=== PATIENT | male | born 1985 | race Hispanic/Latino ===

== ENCOUNTER 2019-11-03 19:03 | Emergency (ER) | payer BC, SELFPAY ==
--- NOTE | ~2019-11-03 | XR_ITS ---
EXAMINATION: XR chest 2V EXAM DATE: 11/03/2019 19:39 INDICATION: Mid chest pain. TECHNIQUE: Frontal and lateral projections of the chest obtained and reviewed. Comparison is made to prior examination from 03/21/2017. FINDINGS: The lungs are clear. There are no pleural effusions. The cardiomediastinal silhouette is within normal limits. There is no pneumothorax suspected. The bones and soft tissues are unremarkab le. There are cholecystectomy clips. There is no significant interval change. IMPRESSION: No acute cardiopulmonary findings. Reviewed, dictated and finalized at location A.
[2019-11-03 19:13] VITALS: BP 143/97; PULSE 95; RESP 21; TEMP 36.8; O2SAT 98
[2019-11-03 19:16] VITALS: BP 143/97; PULSE 89; RESP 17; O2SAT 99
--- NOTE | 2019-11-03 19:18 | ECG_ITS ---
Measurements Intervals [place] Rate: 73 P: 44 NH: 142 QRS: -4 QRSD: 85 T: 25 QT: 353 QTc: 390 Interpretive Statements SINUS RHYTHM NORMAL ECG Electronically Signed On 11-04-2019 7:00:07 CDT by Francisco Shah D.O.
[2019-11-03 19:32] LABS: Basophils Percent Auto 0.4 % (0.2-1.2); Eosinophils Absolute Auto 0.2 K/mm3 (0-0.3); Eosinophils Percent Auto 2.2 % (0-4.4); Hematocrit 45.9 % (42.0-52.0); Hemoglobin 16.2 g/dL (14.0-18.0); Immature Granulocyte Absolute 0.02 K/mm3 (0.00-0.031); Immature Granulocyte Percent A 0.3 % (0-0.5); Lymphocytes Absolute Auto 2.21 K/mm3 (0.9-3.2); Lymphocytes Percent Auto 28.5 % (18.3-44.2); Mean Corpuscular HGB Conc 35.3 g/dl (32-36); Mean Corpuscular Hemoglobin 29.7 pg (26-34); Mean Corpuscular Volume 84.2 fl (80-100); Mean Platelet Volume 10.9 fl (7.4-10.4); Monocytes Absolute Auto 0.7 K/mm3 (0.1-0.6); Monocytes Percent Auto 8.5 % (2.6-8.5); Neutrophils Absolute Auto 4.7 K/mm3 (1.3-6.7); Neutrophils Percent Auto 60.1 % (45.5-73.1); Platelet Count Result 168 k/mm3 (150-375); Red Blood Count 5.45 M/mm3 (4.6-6.20); Red Cell Distribution Width 12.8 % (11.5-14.5); White Blood Count 7.8 K/mm3 (4.5-10.0)
[2019-11-03 19:42] LABS: INR 0.9; Prothrombin Time 12.3 Seconds (11.1-14.7)
[2019-11-03 19:43] LABS: Partial Thromboplastin Time 24.7 SECONDS (22.3-36.8)
[2019-11-03 19:44] LABS: Blood Urea Nitrogen 18 mg/dL (9-20); Calcium 9.3 mg/dL (8.4-10.2); Carbon Dioxide 29 mmol/L (22-30); Chloride 102 mmol/L (98-107); Estimated CRCL calculation 73 ml/min; Estimated Glomerular Filt Rate > 60; Glucose 122 mg/dL (75-110); Potassium 3.2 mmol/L (3.4-5.0); Sodium 138 mmol/L (137-145)
[2019-11-03 19:56] LABS: Troponin I < 0.012 ng/mL (0.000-0.034)
--- NOTE | 2019-11-03 20:07 | ED.CHESTPAIN ---
HPI - Chest Pain General Chief Complaint: Chest Pain Stated Complaint: dizzy/corral/cp Time Seen by Provider: 11/03/19 20:01 Source: patient, family (pt's ) and RN notes reviewed Mode of arrival: ambulatory Limitations: no limitations History of Present Illness HPI narrative: Pt is a 34 y/o male who presents to the ED with c/o midsternal chest pain starting earlier today. According to the pt's , he has had intermittent headache and dizziness for the past several days. She notes that the pt was evaluated for his symptoms by his PCP on 11/01/19, and states that he advised him that his symptoms were a result of allergies. Pt notes having bilateral chest pain throughout the day today. He describes his pain as a pressure, stating that he feels as though someone is pushing on his chest. he also reports a mild cough, body aches, and epigastric pain, but denies any SOB. Patient states that he does take Protonix but only takes it as needed MD complaint: chest pain Onset (ago): day(s) (1) Pain location: left chest and right chest Quality: other (pressure) Associated symptoms: cough and other (epigastric pain; body aches; dizziness; headache) Related Data Home Medications Medication Instructions Recorded Confirmed omeprazole 40 mg capsule,delayed 40 mg PO DAILY 11/01/19 release Allergies Allergy/AdvReac Type Severity Reaction Status Date / Time hydrocodone Allergy Unknown Jittery/ANXIOUS Verified 11/03/19 19:17 FEELING Review of Systems Review of Systems: All systems reviewed & are unremarkable except as noted in HPI and below Constitutional: Constitutional: Reports body ache(s) Cardiovascular: Cardiovascular: Reports chest pain (bilateral chest pain) Respiratory: Respiratory: Reports cough and Denies dyspnea Gastrointestinal: Gastrointestinal: Reports abdominal pain (epigastric pain) Neurologic: Reports dizziness and Reports headache(s) [facility] Past Medical History Medical History GERD (gastroesophageal reflux disease) Surgical History Surgical History Hx of appendectomy Hx of cholecystectomy Hx of vasectomy Family History Family History (Updated 03/30/14 @ 07:13 by DOCTOR UNKNOWN) Father Hypertension Social History Social History Social History: Smoking status: Never smoker Second hand tobacco smoke exposure: No Alcohol intake: never Substance use: never Substance use type: does not use Gender identity (if verbalized by the patient): Male Exam Narrative: Exam Narrative: APPEARANCE: No acute distress, nontoxic, resting in bed HEENT: Normocephalic, atraumatic, OMM RESPIRATORY: No respiratory distress, clear to auscultation bilaterally with no rhonchi wheezing or rales CARDIOVASCULAR: RRR s murmur ABDOMINAL: Soft, nondistended, tender palpation epigastric region left upper quadrant, no tenderness in right upper quadrant right lower quadrant left lower quadrant, no rebound or guarding MUSCULOSKELETAl: Moves all extremities. No clubbing, cyanosis or edema. NEURO: Awake and alert. Following commands, speech normal, no focal deficits SKIN:: Warm, dry. Normal Color PSYCHIATRIC: Normal affect/mood Course Course Emergency Course: Patient states pain is resolved following GI cocktail Discussed with patient results of workup and diagnosis. Discussed need for follow-up with primary care, proper use of medication, and reasons to return to the emergency department. Patient understands and agrees to current treatment plan Vital Signs Vital signs: Vital Signs Temperature 98.2 F 11/03/19 19:13 Pulse Rate 95 11/03/19 19:13 Respiratory Rate 21 H 11/03/19 19:13 Blood Pressure 143/97 H 11/03/19 19:13 Pulse Oximetry 98 11/03/19 19:13 Temperature 98.2 F 11/03/19 19:13 Pulse Rate 81 11/03/19 22:36 Respiratory Rate 1
[2019-11-03 20:26] LABS: Alanine Aminotransferase 49 U/L (4-50); Albumin Level 4.6 g/dL (3.5-5.1); Alkaline Phosphatase 84 U/L (38-126); Aspartate Amino Transferase 44 U/L (17-59); Bilirubin,Total 1.6 mg/dL (0.2-1.3); Lipase 70 U/L (23-300)
[2019-11-03 20:29] LABS: D Dimer < 0.22 ug/mL (<0.48)
[2019-11-03] MEDS: LACTATED RINGERS 1,000 ML 999 ML IV CONT (20:47)
[2019-11-03 22:36] VITALS: BP 141/89; PULSE 81; RESP 18; O2SAT 98
[2019-11-03 23:03] LABS: Troponin I < 0.012 ng/mL (0.000-0.034)
[2019-11-03 23:34] VITALS: BP 129/83; PULSE 71; RESP 18; O2SAT 100
== END 2019-11-03 23:20 | disposition home or self-care (01) ==
PROVIDERS: Emergency Medicine; Emergency Provider Emergency Medicine; PCP Family Medicine
DX: R07.89 Other chest pain (principal); K21.9 Gastro-esophageal reflux disease without esophagitis
CPT/HCPCS: 36415; 71046; 80048; 80076; 83690; 84484; 85025; 85380; 85610; 85730; 93005; 99284; A9270; J7120

== ENCOUNTER 2023-01-13 15:45 | Outpatient (CLI) | payer BC, SELFPAY ==
[2023-01-13 16:41] LABS: Hematocrit 44.1 % (42.0-52.0); Hemoglobin 15.8 g/dL (14.0-18.0); Mean Corpuscular HGB Conc 35.8 g/dl (32-36); Mean Corpuscular Hemoglobin 30.8 pg (26-34); Mean Platelet Volume 11.1 fl (7.4-10.4); Platelet Count Result 182 k/mm3 (150-375); Red Blood Count 5.13 M/mm3 (4.6-6.20); Red Cell Distribution Width 12.7 % (11.5-14.5)
[2023-01-13 16:46] LABS: Alanine Aminotransferase 57 U/L (6-50); Albumin Level 4.2 g/dL (3.5-5.1); Alkaline Phosphatase 69 U/L (38-126); Anion Gap 6 mmol/L (8-16); Aspartate Amino Transferase 35 U/L (17-59); Bilirubin,Total 1.3 mg/dL (0.2-1.3); Blood Urea Nitrogen 20 mg/dL (9-20); Calcium 8.8 mg/dL (8.4-10.2); Carbon Dioxide 30 mmol/L (22-30); Chloride 101 mmol/L (98-107); Estimated Glomerular Filt Rate > 60; Glucose 96 mg/dL (65-110); Potassium 3.9 mmol/L (3.4-5.0); Sodium 137 mmol/L (137-145)
[2023-01-13 16:50] LABS: Immunoglobulin G 1064 mg/dL (700-1600)
[2023-01-13 18:03] LABS: Hepatitis B Surface Anti Res Negative
[2023-01-17 09:29] LABS: Alpha-1-Antitrypsin, QN 135 mg/dL (83-199); Ceruloplasmin 23 mg/dL (18-36)
[2023-01-18 03:47] LABS: Hepatitis A Antibody Total Reactive (Nonreactive); Hepatitis B Core Ab Total Nonreactive (Nonreactive)
[2023-01-18 15:48] LABS: Alpha Fetoprotein Tumor Marker 2.5 ng/mL (<6.1)
[2023-01-19 14:12] LABS: Actin Antibody (IgG) <20 U (<20)
[2023-01-23 00:58] LABS: ALT 47 U/L (9-46); Alpha-2-Macroglobulin 123 mg/dL (106-279); Apolipoprotein A1 142 mg/dL (94-176); Fibrosis Score 0.21; Fibrosis Stage F0; GGT 83 U/L (3-90); Haptoglobin 104 mg/dL (43-212); Necroinflammat Act Grade A0-A1
== END 2023-01-13 15:46 | disposition home or self-care (01) ==
LOC: ANHLAB 15:46
PROVIDERS: PCP Family Medicine; Visit Provider Nurse Practitioner
DX: R74.01 Elevation of levels of liver transaminase levels (principal); R10.13 Epigastric pain; K74.60 Unspecified cirrhosis of liver
CPT/HCPCS: 36415; 80053; 81596; 82103; 82105; 82390; 82728; 82784; 84443; 85027; 86038; 86364; 86704; 86706; 86708

== ENCOUNTER 2023-01-19 07:19 | Outpatient (CLI) | payer BC, SELFPAY ==
--- NOTE | ~2023-01-19 | US_ITS ---
US abdomen limited INDICATION: Increased liver function tests. PROCEDURE: Realtime right upper abdominal ultrasound. COMPARISON: 09/01/2014 FINDINGS: The pancreas is normal without focal mass or pancreatic ductal dilation. Liver echotexture is increased, consistent with fatty infiltration. There is normal directional flow in the portal ve in. Gallbladder surgically absent. Common bile duct measures 4.8 mm. No sonographic Rod's sign. IMPRESSION: 1: Hepatic steatosis. Reviewed, dictated and finalized at location [] IMPRESSION: 1: Hepatic steatosis.
== END 2023-01-19 07:20 | disposition home or self-care (01) ==
PROVIDERS: PCP Physician Assistant; Visit Provider Nurse Practitioner
DX: R10.13 Epigastric pain (principal); R74.01 Elevation of levels of liver transaminase levels; K76.0 Fatty (change of) liver, not elsewhere classified
CPT/HCPCS: 76705

== ENCOUNTER 2023-02-06 13:53 | Outpatient (CLI) | payer BC, SELFPAY ==
[2023-02-06 16:23] LABS: Iron 130 ug/dL (49-181)
[2023-02-06 16:34] LABS: Percent Iron Saturation 39 % (20-50)
[2023-02-09 22:59] LABS: Mitochondrial (M2) Ab (IgG) <=20.0 U (<=20.0)
[2023-02-11 00:18] LABS: LKM 1 Antibody <=20.0 U (<=20.0)
== END 2023-02-06 13:54 | disposition home or self-care (01) ==
LOC: ANHLAB 13:54
PROVIDERS: PCP Physician Assistant; Visit Provider Nurse Practitioner
DX: R74.01 Elevation of levels of liver transaminase levels (principal); R10.13 Epigastric pain
CPT/HCPCS: 36415; 83520; 83540; 83550; 85610; 86376

== ENCOUNTER 2023-02-13 04:18 | Day surgery (SDC) | payer BC, SELFPAY ==
[2023-02-06 14:29] VITALS: BMI 30.8
[2023-02-13 08:15] VITALS: BP 129/91; PULSE 76; RESP 20; TEMP 36.6; O2SAT 99; BMI 31.5
[2023-02-13] MEDS: LACTATED RINGERS 1,000 ML 150 ML IV CONT (08:21)
--- NOTE | 2023-02-13 08:53 | WPDANESEPPF ---
Anes - Initial Pre Proc Eval Procedure: Operation Date: 02/13/23 09:15 Proposed Procedures p Esophagogastroduodenoscopy - Raz Sharpe MD Date/Time: 02/13/23 08:53 Surgeon: Raz Sharpe MD Pre Op Diagnosis: GERD, epigastric pain Patient Data Age: 37 Gender: M Height: 1.65 m Weight: 86 kg Last Vital Signs Temp 97.9 F 02/13/23 08:15 Pulse 76 02/13/23 08:15 Resp 20 02/13/23 08:15 BP 129/91 H 02/13/23 08:15 Pulse Ox 99 02/13/23 08:15 O2 Del Method Room Air 02/13/23 08:15 Allergies Allergy/AdvReac Type Severity Reaction Status Date / Time hydrocodone Allergy Unknown Jittery/ANXIOUS Verified 02/06/23 14:27 FEELING Home Medications Medication Instructions Recorded Confirmed Type losartan 25 mg tablet See Rx Instructions .Route 01/14/22 02/06/23 Rx .COMPLEX #90 tabs dicyclomine 20 mg tablet 20 mg PO .every 6 hours PRN 01/13/23 02/06/23 Rx abdominal pain #120 tabs omeprazole 40 mg capsule,delayed 40 mg PO DAILY #30 caps 01/13/23 02/06/23 Rx release Patient hx anesthesia problems: none Family hx anesthesia problems: none Results Review: All pre-operative results and documents have been reviewed as part of the pre-operative evaluation. [facility] Past Medical History Medical History (Updated 01/13/23 @ 15:49 by Sonali Herrera APRN) Colon cancer screening Elevated transaminase level Epigastric pain GERD (gastroesophageal reflux disease) HTN (hypertension) Hx of type A viral hepatitis Surgical History Surgical History (Updated 01/13/23 @ 15:49 by Sonali Herrera APRN) Hx of appendectomy Hx of cholecystectomy Hx of vasectomy Family History Family History Father Hypertension Diabetes mellitus Mixed hyperlipidemia Mother Hypothyroidism Mixed hyperlipidemia Social History Social History Social History: Smoking status: Smoker, status unknown (Smokes cigars) Tobacco type: cigars Second hand tobacco smoke exposure: No Additional smoking assessment comments: 2-3 a day, pt smokes cigars Alcohol intake: never Substance use: never Substance use type: does not use Living arrangements: with family Occupation/Education: occupation Gender identity (if verbalized by the patient): Male Sexual Orientation (if Verbalized by the Patient): Straight or Heterosexual Spiritual care concerns: No Anes - Eval Final PreProcedure Day of Procedure 02/13/23 08:53 Patient weight: normal Heart: regular rate and rhythm Lungs: clear to auscultation Airway: Mallampati scale class II Neurological: alert and oriented Last oral intake: >/= 8 hours ASA classification: II Emergent: no Anesthetic plan: proceed Anesthesia type and monitoring: general GIVS and standard monitoring Results Review: All pre-operative results and documents have been reviewed as part of the pre-operative evaluation. Informed Consent: The patient's anesthetic plan and its attendant risks and benefits were discussed with the patient/family/POA. Questions were solicited and answers provided to the satisfaction of the patient/family/POA.
--- NOTE | 2023-02-13 10:02 | PM.HPGS ---
History of Present Illness History of Present Illness Consent: Risks, benefits, and alternatives have been discussed and questions answered. Patient agrees to proceed with procedure. Chief complaint: GERD, epigastric pain Narrative: Joseph Kimball is a 37 year old male with almost 2 months of intermittent bloating and discomfort radiation from left to right abdomen, worse after eating spicy meals. He is using omeprazole that is helping with dyspepsia. Ultrasound showed hepatic steatosis. Review of Systems Constitutional: Constitutional: Denies headache(s) and Denies weakness Eyes: Eyes: Denies blurry vision ENT: Reports Normal hearing present, Denies headache(s) and Denies neck pain Cardiovascular: Cardiovascular: Denies chest pain and Denies dyspnea Respiratory: Respiratory: Denies dyspnea Gastrointestinal: Gastrointestinal: Reports no additional gastrointestinal complaints Genitourinary: Genitourinary: Denies dysuria Musculoskeletal: Musculoskeletal: Denies neck pain Integumentary/Breasts: Skin/Breast: Denies dry skin Neurologic: Reports Normal hearing present, Denies headache(s) and Denies weakness Psychiatric: Psychiatric: Denies anxiety Endocrine: Endocrine: Denies change in body appearance Hematologic/Lymphatic: Hematologic/Lymphatic: Denies easy bleeding Allergic/Immunologic: Allergic/Immunologic: Denies urticaria PMFSH Past Medical History Medical History (Updated 01/13/23 @ 15:49 by Sonali Herrera APRN) Colon cancer screening Elevated transaminase level Epigastric pain GERD (gastroesophageal reflux disease) HTN (hypertension) Hx of type A viral hepatitis Surgical History Surgical History (Updated 01/13/23 @ 15:49 by Sonali Herrera APRN) Hx of appendectomy Hx of cholecystectomy Hx of vasectomy Family History Family History Father Hypertension Diabetes mellitus Mixed hyperlipidemia Mother Hypothyroidism Mixed hyperlipidemia Social History Social History Social History: Smoking status: Smoker, status unknown (Smokes cigars) Tobacco type: cigars Second hand tobacco smoke exposure: No Additional smoking assessment comments: 2-3 a day, pt smokes cigars Alcohol intake: never Substance use: never Substance use type: does not use Living arrangements: with family Occupation/Education: occupation Gender identity (if verbalized by the patient): Male Sexual Orientation (if Verbalized by the Patient): Straight or Heterosexual Spiritual care concerns: No Meds Home Medications and Allergies Home Medications Medication Instructions Recorded Confirmed Type losartan 25 mg tablet See Rx Instructions .Route 01/14/22 02/06/23 Rx .COMPLEX #90 tabs dicyclomine 20 mg tablet 20 mg PO .every 6 hours PRN 01/13/23 02/06/23 Rx abdominal pain #120 tabs omeprazole 40 mg capsule,delayed 40 mg PO DAILY #30 caps 01/13/23 02/06/23 Rx release Allergies Allergy/AdvReac Type Severity Reaction Status Date / Time hydrocodone Allergy Unknown Jittery/ANXIOUS Verified 02/06/23 14:27 FEELING Vital Signs Vital Signs - 24 hr 02/13/23 08:15 Temperature 97.9 F Pulse Rate 76 Respiratory Rate 20 Blood Pressure 129/91 H Pulse Oximetry 99 Oxygen Delivery Room Air Exam Const: General: comfortable and no acute distress HENMT: Face/Nose/Sinus: Normal nares present Eyes: General: appearance normal, both eyes and all related structures Neck: Neck: no JVD Resp: Auscultation: clear to auscultation bilaterally Cardio: Rate: regular rate Rhythm: regular rhythm GI: Inspection: non-distended GI Palp: Yes Soft to palpation Skin: General skin exam: normal color Neuro: General: gait normal Speech: normal speech Extrem: General: normal to inspection Psych: Mental Status: mental status grossly normal Ass
[2023-02-13] MEDS: BENZOCAINE (*SP) 60 ML SPRAY CAN (HURRICAINE) 1 SPRAY MUCOUS MEM (10:08)
[2023-02-13 10:12] VITALS: BP 105/75; PULSE 91; RESP 18; O2SAT 96
[2023-02-13 10:22] VITALS: BP 113/75; PULSE 90; RESP 20; O2SAT 98
[2023-02-13 10:32] VITALS: BP 122/80; PULSE 77; RESP 17; O2SAT 97
== END 2023-02-13 10:39 | disposition home or self-care (01) ==
PROVIDERS: PCP Physician Assistant; Visit Provider Internal Medicine Gastroenterology
PROC: 0DJ08ZZ Inspection of Upper Intestinal Tract, Via Natural or Artificial Opening Endoscopic (ICD-10-PCS; CPT 43235; principal; 2023-02-13 09:15)
DX: R10.30 Lower abdominal pain, unspecified (principal); K30 Functional dyspepsia; K21.9 Gastro-esophageal reflux disease without esophagitis; K76.0 Fatty (change of) liver, not elsewhere classified; I10 Essential (primary) hypertension; F17.290 Nicotine dependence, other tobacco product, uncomplicated
CPT/HCPCS: 43239; 88305; J2704; J7120

== ENCOUNTER 2023-08-21 10:52 | Emergency (ER) | payer BC, SELFPAY ==
--- NOTE | 2023-08-21 11:04 | ED.URI ---
HPI - URI/Sore Throat General Chief Complaint: Upper Respiratory Infection Stated Complaint: Headache/Dizziness Time Seen by Provider: 08/21/23 11:22 Source: patient and RN notes reviewed Mode of arrival: ambulatory Limitations: no limitations History of Present Illness HPI Narrative: 38-year-old male presents with concern for 3 day history of cough, nasal congestion, headache, body aches, chills. Reports itchy ears and occasionally feels dizzy. Reports taking a multi symptom cold medicine with some relief. He took the COVID test at home today that was negative MD elicited complaint: cough and other (headache) Related Data Allergies Allergy/AdvReac Type Severity Reaction Status Date / Time hydrocodone Allergy Unknown Jittery/ANXIOUS Verified 08/21/23 11:13 FEELING Review of Systems Review of Systems: CONSTITUTIONAL: Reports malaise, chills. Denies sweats or fever. EYES: Denies visual changes, redness, or discharge. ENT: Reports rhinorrhea, congestion, itchy ears otalgia bile sore throat. CARDIOVASCULAR: Denies chest pain, palpitations, or edema. RESPIRATORY: Reports cough. Denies dyspnea. GASTROINTESTINAL: Denies abdominal pain, nausea, vomiting, diarrhea SKIN: Denies rash or itching. MUSCULOSKELETAL: Reports myalgia. NEUROLOGIC: Reports headache. All systems reviewed & are unremarkable except as noted in HPI and below PMFSH Past Medical History Medical History (Updated 08/21/23 @ 11:56 by Rama Mello NP) Colon cancer screening Dyspepsia Elevated transaminase level Epigastric pain GERD (gastroesophageal reflux disease) HTN (hypertension) Hx of type A viral hepatitis Surgical History Surgical History Hx of appendectomy Hx of cholecystectomy Hx of vasectomy Family History Family History Father Hypertension Diabetes mellitus Mixed hyperlipidemia Mother Hypothyroidism Mixed hyperlipidemia Social History Social History Social History: Smoking status: Smoker, status unknown (Smokes cigars) Tobacco type: cigars Second hand tobacco smoke exposure: No Additional smoking assessment comments: 2-3 a day, pt smokes cigars Alcohol intake: never Substance use: never Substance use type: does not use Living arrangements: with family Occupation/Education: occupation Gender identity (if verbalized by the patient): Male Sexual Orientation (if Verbalized by the Patient): Straight or Heterosexual Spiritual care concerns: No Comments At time of signature, agree with nursing past medical, surgical, social and family history. There is no relevant family history pertinent to the presenting complaint Exam Narrative: GENERAL: Well-appearing, well-nourished, and in no acute distress. HEAD: Normocephalic EYES: PERRLA, conjunctivae clear ENT: Nares clear, turbinates edematous and erythematous, clear discharge. Mucous membranes moist. TM pearly magana with dull light reflex bilaterally; no tragal tenderness. Oropharynx not erythematous without lesions. Tonsils not enlarged and without exudate, no drooling, no hoarseness, no trismus, uvula midline. NECK: Supple. No lymphadenopathy CHEST: Clear to auscultation, breath sounds equal. No wheezing, rhonchi, rales, or stridor. No respiratory distress, speaks in full sentences. HEART: Regular rate and rhythm. No murmur heard. SKIN: Warm, dry, no rash. NEURO: Alert and oriented x3. PSYCH: Normal mood and affect Course Course Emergency Course: Patient is aware of diagnosis, understands and agrees to treatment plan. Anticipatory guidance given. Patient agrees to follow-up as directed and is aware of reasons to seek care at the emergency department. Portions of this record may have been created with voice recognition software Level of Care: [facility] Care Visit Vi
[2023-08-21 11:12] VITALS: BP 133/91; PULSE 107; RESP 16; TEMP 37; O2SAT 97
[2023-08-21 11:14] VITALS: BP 133/91; PULSE 107; RESP 16; TEMP 37; O2SAT 97
== END 2023-08-21 12:05 | disposition home or self-care (01) ==
PROVIDERS: Emergency Provider Nurse Practitioner; PCP Physician Assistant
DX: B34.9 Viral infection, unspecified (principal); F17.290 Nicotine dependence, other tobacco product, uncomplicated; K21.9 Gastro-esophageal reflux disease without esophagitis; I10 Essential (primary) hypertension; Z98.52 Vasectomy status
CPT/HCPCS: 87804; 99213; G0463

== ENCOUNTER 2023-11-15 15:57 | Emergency (ER) | payer BC, SELFPAY ==
[2023-11-15 16:12] VITALS: BP 131/94; PULSE 75; RESP 16; TEMP 36.6; O2SAT 98
--- NOTE | 2023-11-15 16:35 | ED.GENADULT ---
HPI - General Adult General Chief complaint: Ear Stated complaint: Ears Irritation/Sore Throat Source: patient Mode of arrival: ambulatory Limitations: no limitations History of Present Illness HPI narrative: Patient presents for evaluation of headache. He is here in the company of his who provides me with some of his history. On Thursday of last week he developed a sore throat. He then developed a productive cough of yellow sputum, hot flashes and chills. Those symptoms have improved. Two days ago he developed a headache, which is in the left parietal and temporal region of his head, radiating into the jaw. He has associated left sided facial numbness and pressure in his left ear. He rates his headache as 8/10 in severity and describes it as pulsating. Any type of physical exertion make his pain worse. He took ibuprofen 600mg for his headache without considerable improvement thereafter. He denies any chest pain or SOB. Related Data Allergies Allergy/AdvReac Type Severity Reaction Status Date / Time hydrocodone Allergy Unknown Jittery/ANXIOUS Verified 11/15/23 16:00 FEELING Review of Systems Review of Systems: CONSTITUTIONAL: Reports recent hot flashes and chills, none currently EYES: Denies visual changes, redness, or discharge. ENT: Reports recent sore throat, none currently. Reports pressure in his left ear and pain in the left side of his mandible. CARDIOVASCULAR: Denies chest pain, palpitations, or edema. RESPIRATORY: Denies cough or dyspnea. GASTROINTESTINAL: Denies abdominal pain, nausea, vomiting, or diarrhea. GENITOURINARY: Denies dysuria or hematuria. SKIN: Denies rash or itching. MUSCULOSKELETAL: Denies back pain, joint pain, or myalgia. NEUROLOGIC: Reports numbness in left side of his face. Reports left sided pulsating headache. Denies dizziness or weakness. PSYCHIATRIC: Denies anxiety or depression. [facility] Past Medical History Medical History Colon cancer screening Dyspepsia Elevated transaminase level Epigastric pain GERD (gastroesophageal reflux disease) HTN (hypertension) Hx of type A viral hepatitis Surgical History Surgical History Hx of appendectomy Hx of cholecystectomy Hx of vasectomy Family History Family History Father Hypertension Diabetes mellitus Mixed hyperlipidemia Mother Hypothyroidism Mixed hyperlipidemia Social History Social History Social History: Smoking status: Smoker, status unknown (Smokes cigars) Tobacco type: cigars Second hand tobacco smoke exposure: No Additional smoking assessment comments: 2-3 a day, pt smokes cigars Alcohol intake: never Substance use: never Substance use type: does not use Living arrangements: with family Occupation/Education: occupation Gender identity (if verbalized by the patient): Male Sexual Orientation (if Verbalized by the Patient): Straight or Heterosexual Spiritual care concerns: No Exam Narrative: GENERAL: Well-appearing, well-nourished, and in no acute distress. HEAD: Normocephalic, atraumatic. EYES: PERRLA and EOMI. ENT: Nares clear, no rhinorrhea or epistaxis. Mucous membranes moist. Oropharynx without tonsillar hypertrophy exudate or other lesions. Bilateral TMs pearly magana nonbulging. No crepitus over left TMJ. There is some tenderness over the left mandible without any visible swelling NECK: Supple. No adenopathy or masses. No carotid bruits or JVD CHEST: Clear to auscultation. No respiratory distress. No wheezes rales or rhonchi HEART: Regular rate and rhythm. No murmur heard. Normal peripheral pulses. ABDOMEN: Soft, nontender, nondistended, normal active bowel sounds. EXTREMITIES: Normal range of motion. No edema. SKIN
== END 2023-11-15 17:22 | disposition home or self-care (01) ==
PROVIDERS: Emergency Provider Nurse Practitioner; PCP Physician Assistant
DX: R20.0 Anesthesia of skin (principal); R51.9 Headache, unspecified; Z20.822 Contact with and (suspected) exposure to COVID-19; F17.290 Nicotine dependence, other tobacco product, uncomplicated; K21.9 Gastro-esophageal reflux disease without esophagitis; I10 Essential (primary) hypertension
CPT/HCPCS: 87081; 87426; 87804; 87880; 99213; G0463

== ENCOUNTER 2023-11-15 18:01 | Emergency (ER) | payer BC, SELFPAY ==
--- NOTE | ~2023-11-15 | CT_ITS ---
CT ANGIOGRAM NECK AND HEAD History: Headache. Technique: Serial spiral axial images through the head and neck were obtained during arterial phase I V injection of 100 cc of Omnipaque 350. 3-D postprocessing and MIP images were then reconstructed on the remote workstation. Dose reduction technique was used on this scan by utilizing automated exposur e control and iterative reconstruction technique. The dose-length product (DLP) was 1038.34 mGy-cm. CTA neck findings: Bilateral vertebral arteries are patent. Bilateral common carotid, internal carot id, and external carotid arteries are patent. No large vessel occlusion. No stenosis or aneurysm. The proximal right internal carotid artery demonstrates 0% stenosis relative to the normal distal artery lumen diameter. The proximal left internal carotid artery demonstrates 0% stenosis relative to the n ormal distal artery lumen diameter. CTA head findings: Distal vertebral arteries, basilar artery, and posterior humeral arteries are coy nt. Distal internal carotid arteries, middle cerebral arteries, and anterior cerebral arteries are pa tent. No large vessel occlusion. No stenosis or aneurysm. Impression: No significant abnormality seen. Reviewed, dictated and finalized at location M. Impression: No significant abnormality seen.
--- NOTE | ~2023-11-15 | CT_ITS ---
EXAMINATION: CT brain wo con DATE: 11/15/2023 18:58 INDICATION: Headache. TECHNIQUE: Computed tomography (CT) of the head was performed without intravenous contrast. The mA wa s adjusted according to patient size. Iterative reconstruction technique was employed. The dose-lengt h product was 605.33 mGy-cm. COMPARISON: None FINDINGS: There is no intracranial hemorrhage, acute infarction, or abnormal intracranial mass lesion . The ventricles are normal in size. The orbits are normal. There is mucosal thickening in the parana caitlin sinuses. The mastoid air cells are normal. IMPRESSION: 1. Normal brain. Reviewed, dictated and finalized at location E. IMPRESSION: 1. Normal brain.
--- NOTE | ~2023-11-15 | XR_ITS ---
EXAMINATION: XR chest 2V DATE: 11/15/2023 18:48 INDICATION: Cough. TECHNIQUE: Frontal and lateral views of the chest were obtained. COMPARISON: Chest 2 views 11/03/2019 FINDINGS: There is mild elevation of right hemidiaphragm. There is mild atelectasis in the lower lung zones. No pleural effusion or pneumothorax. The heart size is normal. There are surgical clips in th e abdomen. IMPRESSION: 1. Mild atelectasis in the lower lung zones. Reviewed, dictated and finalized at location E.
[2023-11-15 18:06] VITALS: BP 136/90; PULSE 71; RESP 18; TEMP 36.9; O2SAT 99
--- NOTE | 2023-11-15 18:44 | ED.HA ---
HPI - Headache General Chief Complaint: Headache <Sara Cheatham PA-C - Last Filed: 11/16/23 01:44> Stated Complaint: headache, facial numbness <Sara Cheatham PA-C - Last Filed: 11/16/23 01:44> Time Seen by Provider: 11/15/23 18:22 <Sara Cheatham PA-C - Last Filed: 11/16/23 01:44> History of Present Illness HPI Narrative: 38-year-old male with history of hypertension presents to emergency department his at bedside for evaluation for URI symptoms and left-sided headache. Patient is [place]ese-speaking and his assists with history. He was sent here from urgent care for further evaluation. States 5 days ago he began developing a sore throat followed by productive cough 2 days later. States the sore throat has resolved however 3 days ago he began developing severe pain in his left temporal region that radiates up into his head and down into his face. States that started in front of the ear gets worse when he opens his mouth, smiles, brushes his teeth on the left side and eats food. He describes the pain as a sharp sensation and it is intermittent. He is describing paresthesias and numbness and states it feels like bugs are crawling on my skin , otherwise denies focal numbness or weakness. Denies vision changes, fever. States his cough has been persistent and has not improved with Robitussin. Pt endorses he does not have a hx of headaches. <Sara Cheatham PA-C - Last Filed: 11/16/23 01:44> Related Data Allergies/Adverse Reactions: Allergies Allergy/AdvReac Type Severity Reaction Status Date / Time hydrocodone Allergy Unknown Jittery/ANXIOUS Verified 11/15/23 16:00 FEELING <KULDEEP Rios Last Filed: 11/16/23 01:44> Review of Systems Review of Systems: CONSTITUTIONAL: Denies fever, chills, or sweats. EYES: Denies visual changes, redness, or discharge. ENT: Denies rhinorrhea, congestion, sore throat, or otalgia. CARDIOVASCULAR: Denies chest pain, palpitations, or edema. RESPIRATORY: Denies cough or dyspnea. GASTROINTESTINAL: Denies abdominal pain, nausea, vomiting, or diarrhea. GENITOURINARY: Denies dysuria or hematuria. SKIN: Denies rash or itching. MUSCULOSKELETAL: Denies back pain, joint pain, or myalgia. NEUROLOGIC: See HPI PSYCHIATRIC: Denies anxiety or depression. <Sara Cheatham PA-C - Last Filed: 11/16/23 01:44> [facility] Past Medical History Medical History: Medical History Colon cancer screening Dyspepsia Elevated transaminase level Epigastric pain GERD (gastroesophageal reflux disease) HTN (hypertension) Hx of type A viral hepatitis <Sara Cheatham PA-C - Last Filed: 11/16/23 01:44> Surgical History Surgical History: Surgical History Hx of appendectomy Hx of cholecystectomy Hx of vasectomy <Sara Cheatham PA-C - Last Filed: 11/16/23 01:44> Family History Family History: Family History Father Hypertension Diabetes mellitus Mixed hyperlipidemia Mother Hypothyroidism Mixed hyperlipidemia <Sara Cheatham PA-C - Last Filed: 11/16/23 01:44> Social History Social History: Social History Social History: Smoking status: Smoker, status unknown (Smokes cigars) Tobacco type: cigars Second hand tobacco smoke exposure: No Additional smoking assessment comments: 2-3 a day, pt smokes cigars Alcohol intake: never Substance use: never Substance use type: does not use Living arrangements: with family Occupation/Education: occupation Gender identity (if verbalized by the patient): Male Sexual Orientation (if Verbalized by the Patient): Straight or Heterosexual Spiritual care concerns: No <Sara Cheatham PA-C - Last Filed: 11/16/23 01:44
[2023-11-15 19:20] LABS: Basophils Percent Auto 0.5 % (0.2-1.2); Eosinophils Absolute Auto 0.3 K/mm3 (0-0.3); Eosinophils Percent Auto 3.2 % (0-4.4); Hematocrit 44.4 % (42.0-52.0); Hemoglobin 15.8 g/dL (14.0-18.0); Immature Granulocyte Absolute 0.03 K/mm3 (0.00-0.031); Immature Granulocyte Percent A 0.4 % (0-0.5); Lymphocytes Absolute Auto 2.45 K/mm3 (0.9-3.2); Lymphocytes Percent Auto 31.3 % (18.3-44.2); Mean Corpuscular HGB Conc 35.6 g/dl (32-36); Mean Corpuscular Hemoglobin 30.2 pg (26-34); Mean Corpuscular Volume 84.7 fl (80-100); Mean Platelet Volume 10.8 fl (7.4-10.4); Monocytes Absolute Auto 0.7 K/mm3 (0.1-0.6); Monocytes Percent Auto 8.4 % (2.6-8.5); Neutrophils Absolute Auto 4.4 K/mm3 (1.3-6.7); Neutrophils Percent Auto 56.2 % (45.5-73.1); Platelet Count Result 168 k/mm3 (150-375); Red Blood Count 5.24 M/mm3 (4.6-6.20); Red Cell Distribution Width 12.9 % (11.5-14.5); White Blood Count 7.8 K/mm3 (4.5-10.0)
[2023-11-15 19:32] LABS: Alanine Aminotransferase 68 U/L (6-50); Albumin Level 4.4 g/dL (3.5-5.1); Alkaline Phosphatase 81 U/L (38-126); Anion Gap 8 mmol/L (4-12); Aspartate Amino Transferase 34 U/L (17-59); Bilirubin,Total 1.4 mg/dL (0.2-1.3); Blood Urea Nitrogen 25 mg/dL (9-20); CRP 0.8 mg/dL (<1.0); Calcium 9.4 mg/dL (8.4-10.2); Carbon Dioxide 25 mmol/L (22-30); Chloride 106 mmol/L (98-107); Estimated CRCL calculation 79 ml/min; Estimated Glomerular Filt Rate > 60; Glucose 104 mg/dL (65-110); Potassium 4.2 mmol/L (3.4-5.0); Sodium 139 mmol/L (137-145)
[2023-11-15 20:01] LABS: Erythrocyte Sedimentation Rate 7 mm/hr (0-20)
[2023-11-15] MEDS: KETOROLAC 30 MG/ML VIAL (*BKC) IV PUSH (20:57)
[2023-11-15] MEDS: SODIUM CHLORIDE 0.9% IV 1,000 ML 999 ML IV CONT (20:58)
[2023-11-15] MEDS: diphenhydrAMINE HCl INJ 50 MG/ML VIAL 25 MG IV PUSH (20:58)
[2023-11-15] MEDS: PROCHLORPERAZINE EDISYLATE 10 MG/2 ML VIAL IV PUSH (20:58)
[2023-11-15 21:14] VITALS: BP 134/84; PULSE 96; RESP 15; O2SAT 100
[2023-11-16 00:46] VITALS: BP 130/78; PULSE 84; RESP 15; O2SAT 100
== END 2023-11-16 00:47 | disposition home or self-care (01) ==
PROVIDERS: Emergency Provider Physician Assistant; PCP Physician Assistant
DX: R51.9 Headache, unspecified (principal); J06.9 Acute upper respiratory infection, unspecified; K21.9 Gastro-esophageal reflux disease without esophagitis; I10 Essential (primary) hypertension; Z90.49 Acquired absence of other specified parts of digestive tract; F17.290 Nicotine dependence, other tobacco product, uncomplicated
CPT/HCPCS: 36415; 70450; 70496; 70498; 71046; 80053; 85025; 85652; 86140; 87081; 87426; 87804; 87880; 96361; 96374; 96375; 99284; J0780; J1200; J1885; J7030; Q9967

== ENCOUNTER 2024-02-02 15:36 | Outpatient (CLI) | payer BC, SELFPAY ==
--- NOTE | ~2024-02-02 | MR_ITS ---
MR cervical spine wo con Ordering provider: Marisela Severino MD History: 38 years Male with . G95.9 - Disease of spinal cord, unspecified . Comparison: None. Technique: MRI cervical spine without contrast. FINDINGS: CERVICAL SPINAL CORD/CRANIAL CERVICAL JUNCTION: Normal in signal and caliber. CERVICAL VERTEBRAL BODIES: Normal height and alignment. Normal marrow signal. DISK SPACES: Normal. C2-C3: No stenosis. C3-C4: No stenosis. C4-C5: No stenosis. C5-C6: No stenosis. Mild diffuse disc bulge with bilateral narrowing of the foramina. Root compressio n is highly suggestive. C6-C7: No stenosis. C7-T1: No stenosis. VISUALIZED PARASPINOUS SOFT TISSUES: Normal. IMPRESSION: 1. Mild diffuse disc bulge at the level of C5-C6 with bilateral narrowing of the foramina. Root comp ression is highly suggestive. Reviewed, dictated and finalized at location A. IMPRESSION: 1. Mild diffuse disc bulge at the level of C5-C6 with bilateral narrowing of t he foramina. Root compression is highly suggestive.
== END 2024-02-02 15:37 ==
LOC: MICIMG 15:37
PROVIDERS: PCP Psychiatry & Neurology Neurology; Visit Provider Psychiatry & Neurology Neurology
DX: M54.12 Radiculopathy, cervical region (principal); G95.9 Disease of spinal cord, unspecified; M50.322 Other cervical disc degeneration at C5-C6 level
CPT/HCPCS: 72141

== ENCOUNTER 2024-08-29 08:37 | Emergency (ER) | payer BC, SELFPAY ==
[2024-08-29] VITALS (12 sets, daily range): BP systolic 124–145; BP diastolic 79–101; PULSE 72–86; RESP 16–18; TEMP 36.7; O2SAT 96–100
--- NOTE | ~2024-08-29 | CT_ITS ---
CT of the Abdomen and Pelvis: Indication: Abdominal pain Technique: 2.5 mm axial scans were obtained through the abdomen and pelvis following intravenous adm inistration of 100 cc of Omnipaque 350. Dose reduction technique was used on this scan by utilizing a utomated exposure control and iterative reconstruction technique. The dose-length product (DLP) was 5 04.08 mGy-cm. Findings: Scans through the lung bases are unremarkable. There is probable diffuse hepatic steatosis. Cholecystectomy clips are present. The spleen, pancreas, adrenals and kidneys are within normal limits. No evidence of aortic aneurysm. No lymphadenopathy. No bowel obstruction or bowel wall thickening. There is no evidence to suggest acute appendicitis. Images through the pelvis were performed. Urinary bladder unremarkable. No pelvic mass seen. No ascit es. Impression: No acute abnormality. Diffuse hepatic steatosis. Reviewed, dictated and finalized at [facility]. [employer] Impression: No acute abnormality. Diffuse hepatic steatosis.
--- OUTSIDE RECORDS SUMMARY | 2024-08-29 08:55 | XMS_ITS | Patient Health Summary ---
Author Organization [facility] Address [address] [place] [address] Care Team Providers Care Avionics Engineer Name Role Phone Unavailable Primary Care Provider Unavailabl e Note from [facility],non-owned Affiliates and Associated Physician Practices is amultiple site organization consisting of ambulatory clinics and hospital sitesin [place], [place], [place]. This disclosure is being madepursuant to the Care Everywhere program and may not contain all information available regarding this patient. 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
--- OUTSIDE RECORDS SUMMARY | 2024-08-29 08:55 | XMS_ITS | Clinical Summary ---
Author Organization [facility] Care Team Providers Care Resistance Welder Name Role Phone Unavailable Primary Care Provider Unavailabl e Social History Tobacco Use Types Packs/Day Years Used Date Smoking Tobacco: Never Assessed Sex and Gender Information Value Date Recorded Sex Assigned at Not on file Legal Sex Male 10:59 AM CDT Gender Identity Not on file Sexual Orientation Not on file Plan of Treatment Health Maintenance Due Date Last Done Comments Hepatitis C Virus (HCV) Screening 1983 TdaP Immunization 1983 Hepatitis B Immunization (1 of 3 - 19+ 3-dose series) 2002 Influenza Immunization (#1) 2024 SARS-COV-2 Immunization ( - season) 2024 Respiratory Syncytial Virus (RSV) Immunization (Adult) (1 - 1-dose 75+ series) 2058 Meningococcal Immunization (ACWY) Aged Out No longer eligible based on patient's age to complete this topic Pneumococcal Immunization Combined Aged Out No longer eligible based on patient's age to complete this topic Rotavirus Immunization Aged Out No lo nger eligible based on patient's age to complete this topic
--- OUTSIDE RECORDS SUMMARY | 2024-08-29 08:55 | XMS_ITS | Referral Summary ---
Author Organization [facility] Address [address] [place] [address] Care Team Providers Care Hat Liner Name Role Phone Unavailable Primary Care Provider Unavailabl e Source Comments [facility],non-owned Affiliates and Associated Physician Practices is amultiple site organization consisting of ambulatory clinics and hospital sitesin [place], [place], [place] and [place]. This disclosure is being madepursuant to the Care Everywhere program and may not contain all information available regarding this patient. Last updated 18.[facility] Social History Tobacco Use Types Packs/Day Years Used Date Smoking Tobacco: Never Assessed Sex and Gender Information Value Date Recorded Sex Assigned at Not on file Gender Identity Not on file Sexual Orientation Not on file Plan of Treatment Not on file
--- OUTSIDE RECORDS SUMMARY | 2024-08-29 08:55 | XMS_ITS | Clinical Summary ---
Author Organization [facility] Address [address] [place] [address] Care Team Providers Care High School Math Tutor Name Role Phone Unavailable Primary Care Provider Unavailabl e Source Comments [facility],non-owned Affiliates and Associated Physician Practices is amultiple site organization consisting of ambulatory clinics and hospital sitesin [place], [place], [place] and [place]. This disclosure is being madepursuant to the Care Everywhere program and may not contain all information available regarding this patient. Last updated 18.[facility] [employer] Social History Tobacco Use Types Packs/Day Years Used Date Smoking Tobacco: Never Assessed Sex and Gender Information Value Date Recorded Sex Assigned at Not on file Gender Identity Not on file Sexual Orientation Not on file Plan of Treatment Health Maintenance Due Date Last Done Comments LIPID TESTING 1983 HIV SCREENING 1998 HEPATITIS C SCREENING 03/22/2001 DTAP/TDAP/TD VACCINES (1 - Tdap) 2002 HEPATITIS B VACCINE (1 of 3 - 19+ 3-dose series) 2002 COVID-19 VACCINE (2023-2 5 season) 2024 INFLUENZA VACCINE (#1) 2024 DEPRESSION SCREENING 08/03/2024 ZOSTER VACCINE (1 of 2) 2033 HIB VACCINE Aged Out No longer eligi ble based on patient's age to complete this topic HPV VACCINE Aged Out No longer eligi ble based on patient's age to complete this topic MENINGOCOCCAL (Group B) VACCINE Aged Out No longer eligible based on patient's age to complete this topic MENINGOCOCCAL VACCINE Aged Out No jose mart eligible based on patient's age to complete this topic PNEUMOCOCCAL VACCINE Aged Out No long er eligible based on patient's age to complete this topic
[2024-08-29 09:12] LABS: Basophils Percent Auto 0.3 % (0.2-1.2); Eosinophils Percent Auto 0.3 % (0-4.4); Hematocrit 44.4 % (42.0-52.0); Hemoglobin 16.1 g/dL (14.0-18.0); Immature Granulocyte Absolute 0.03 K/mm3 (0.00-0.031); Immature Granulocyte Percent A 0.3 % (0-0.5); Lymphocytes Absolute Auto 0.97 K/mm3 (0.9-3.2); Lymphocytes Percent Auto 9.8 % (18.3-44.2); Mean Corpuscular HGB Conc 36.3 g/dl (32-36); Mean Corpuscular Hemoglobin 30.8 pg (26-34); Mean Corpuscular Volume 84.9 fl (80-100); Mean Platelet Volume 10.8 fl (7.4-10.4); Monocytes Absolute Auto 0.4 K/mm3 (0.1-0.6); Monocytes Percent Auto 4.3 % (2.6-8.5); Neutrophils Absolute Auto 8.4 K/mm3 (1.3-6.7); Platelet Count Result 199 k/mm3 (150-375); Red Blood Count 5.23 M/mm3 (4.6-6.20); Red Cell Distribution Width 12.6 % (11.5-14.5); White Blood Count 9.9 K/mm3 (4.5-10.0)
[2024-08-29 09:33] LABS: Alanine Aminotransferase 94 U/L (6-50); Albumin Level 4.2 g/dL (3.5-5.1); Alkaline Phosphatase 101 U/L (38-126); Anion Gap 12 mmol/L (4-12); Aspartate Amino Transferase 86 U/L (17-59); Bilirubin,Total 1.3 mg/dL (0.2-1.3); Blood Urea Nitrogen 18 mg/dL (9-20); Calcium 8.8 mg/dL (8.4-10.2); Carbon Dioxide 22 mmol/L (22-30); Chloride 104 mmol/L (98-107); Estimated CRCL calculation 95 ml/min; Estimated Glomerular Filt Rate > 60; Glucose 149 mg/dL (65-110); Lipase 72 U/L (23-300); Potassium 3.9 mmol/L (3.4-5.0); Sodium 138 mmol/L (137-145)
--- OUTSIDE RECORDS SUMMARY | 2024-08-29 09:37 | XMS_ITS | Clinical Summary ---
Author Organization [facility] Address [address] [place] [address] Care Team Providers Care Polarity Tester Name Role Phone Unavailable Primary Care Provider Unavailabl e Source Comments [facility],non-owned Affiliates and Associated Physician Practices is amultiple site organization consisting of ambulatory clinics and hospital sitesin [place], [place], [place] and [place]. This disclosure is being madepursuant to the Care Everywhere program and may not contain all information available regarding this patient. Last updated 18.[facility] [employer] Social History Tobacco Use Types Packs/Day Years [...]
--- OUTSIDE RECORDS SUMMARY | 2024-08-29 09:37 | XMS_ITS | Clinical Summary ---
Author Organization [facility] Care Team Providers Care Line Welder Name Role Phone Unavailable Primary Care [...]
--- OUTSIDE RECORDS SUMMARY | 2024-08-29 09:37 | XMS_ITS | Referral Summary ---
Author Organization [facility] Address [address] [place] [address] Care Team Providers Care Web Site Manager Name Role Phone Unavailable Primary Care Provider Unavailabl e Source Comments [facility],non-owned Affiliates and Associated Physician Practices is amultiple site organization consisting of ambulatory clinics and hospital sitesin [place], [place], [place] and [place]. This disclosure is being madepursuant to the Care Everywhere program and may not contain all information available regarding this patient. Last updated 18.[facility] Social History Tobacco Use Types Packs/Day Years Used Date Smoking Tobacco: Never Assessed Sex and Gender Information Value Date Recorded Sex Assigned at Not on file Gender Identity Not on file Sexual Orientation Not on file Plan of Treatment Not on file
--- OUTSIDE RECORDS SUMMARY | 2024-08-29 09:37 | XMS_ITS | Patient Health Summary ---
Author Organization [facility] Address [address] [place] [address] Care Team Providers Care Assembly Member Name Role Phone Unavailable Primary Care Provider Unavailabl e Note from [facility],non-owned Affiliates and Associated Physician Practices is amultiple site organization consisting of ambulatory clinics and hospital sitesin [place], [place], [place] and [place]. This disclosure is being madepursuant to the Care Everywhere program and may not contain all information available regarding this patient. Last updated 18.[facility] Social History Tobacco Use Types Packs/Day Years [...] Seq See Scanned Report 08/24/2019 3:38 PM CASINO CAGE MANAGER GENE DX Blood BLOOD SPECIMEN / Unknown Lab Venipuncture / Unknown 02/25/2019 4:34 PM CDT 02/25/2019 5:11 PM CDT Lew Garrett MD LAB - CHEMISTRY OR DERABLES GENE DX [address] [place] [address], [facility] [phone]
--- NOTE | 2024-08-29 10:08 | ED.GENADULT ---
HPI - General Adult General Chief complaint: Abdominal Pain Stated complaint: abdominal pain, left back pain for a week Time Seen by Provider: 08/29/24 08:48 History of Present Illness HPI narrative: Patient is a 39-year-old male who presents ER with abdominal pain. Left lower quadrant. Ongoing for 1 week. Worse with physical movement trying to have bowel movement. No fevers or chills or sweats. No chest pain or chest pressure. No known injury. Better with rest. No urinary symptoms. No radiation of discomfort. Does have some mild left-sided back pain it seems to be independent of the abdominal discomfort. Related Data Allergies Allergy/AdvReac Type Severity Reaction Status Date / Time hydrocodone Allergy Unknown Jittery/ANXIOUS Verified 03/22/24 16:02 FEELING Review of Systems Review of Systems: All systems reviewed & are unremarkable except as noted in HPI and below Constitutional: Constitutional: Reports no additional constitutional complaints ENT: Reports system reviewed and no additional complaints, except as documented Cardiovascular: Cardiovascular: Reports no additional cardiovascular complaints Respiratory: Respiratory: Reports no additional respiratory complaints Gastrointestinal: Gastrointestinal: Reports no additional gastrointestinal complaints [facility] Past Medical History Medical History (Updated 08/29/24 @ 12:12 by Mohan Ospina MD) Cervical disc herniation Cervical myelopathy with cervical radiculopathy Left-sided headache Dyspepsia Colon cancer screening Hx of type A viral hepatitis Epigastric pain Elevated transaminase level HTN (hypertension) GERD (gastroesophageal reflux disease) Surgical History Surgical History Hx of vasectomy Hx of cholecystectomy Hx of appendectomy Family History Family History Father Hypertension Diabetes mellitus Mixed hyperlipidemia Mother Hypothyroidism Mixed hyperlipidemia Sibling No problems noted. Social History Social History Social History: Smoking status: Smoker, status unknown (Smokes cigars) Tobacco type: cigars Second hand tobacco smoke exposure: Yes Additional smoking assessment comments: 2-3 a day, pt smokes cigars Alcohol intake: never Substance use: never Substance use type: does not use Do You Feel Safe in your Home?: Yes Lack of Transportation: No Lack of Food: Never True Current Housing: I Have Housing Concerned About Future Housing: No Difficulty Paying Gas/Electric Bills: No Difficulty Paying for Meds: No Currently Unemployed: No Education: High School Diploma/GED Difficulty w/ Childcare or Family Care: No Living arrangements: with family Occupation/Education: occupation 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 HEAD: Normocephalic, atraumatic. ENT: Mucous membranes moist. NECK: Supple. CHEST: Clear to auscultation. No respiratory distress. HEART: Regular rate and rhythm. Normal peripheral pulses. ABDOMEN: Soft, TTP BLQ L>R, nondistended, normal active bowel sounds. EXTREMITIES: Normal range of motion. No edema. SKIN: Warm, dry, no rash. NEURO: Alert and oriented x3. PSYCH: Normal mood and affect. Course Course Emergency Course: Normal evaluation. CT scan with acute pathology. May have abdominal wall muscle strain. Discharged with muscle relaxers and anti-inflammatories. Vital Signs Vital signs: Vital Signs Temperature 98.0 F 08/29/24 08:50 Pulse Rate 84 08/29/24 08:50 Respiratory Rate 18 08/29/24 08:50 Blood Pressure 145/101 H 08/29/24 08:50 Pulse Oximetry 97 08/29/24 08:50 Oxygen Delivery Room Air 08/29/24 08:50 Temperature 98.0 F 08/29/24 08:50 Pulse Rate 84 08/29/24 08:50 Respiratory Rate 18 08/29/24 08:50 Blood Pressure 145/101 H 08/29/24 08:50 Pulse Oximetry 97 08/29/24 08:50 Oxygen Delivery Room Air 08/29/24 08:50 Medical Decision Making Vital Signs Vital Signs: Vital Signs Temperature 98.0 F 08/29/24 08:50 Pulse Rate 84 08/29/24 08:50 Respiratory Rate 18 08/29/24 08:50 Blood Pressure 145/101 H 08/29/24 08:50 Pulse Oximetry 97 08/29/24 08:50 Oxygen Delivery Room Air 08/29/24 08:50 Temperature 98.0 F 08/29/24 08:50 Pulse Rate 84 08/29/24 08:50 Respiratory Rate 18 08/29/24 08:50 Blood Pressure 145/101 H 08/29/24 08:50 Pulse Oximetry 97 08/29/24 08:50 Oxygen Delivery Room Air 08/29/24 08:50 Lab Data 08/29/24 09:05 08/29/24 09:05 Labs: Lab Results 08/29/24 08/29/24 Range/Units 09:05 10:22 WBC 9.9 (4.5-10.0) K/mm3 RBC 5.23 (4.6-6.20) M/mm3 Hgb 16.1 (14.0-18.0) g/dL Hct 44.4 (42.0-52.0) % MCV 84.9 (80-100) fl MCH 30.8 (26-34) pg MCHC 36.3 H (32-36) g/dl RDW 12.6 (11.5-14.5) % Plt Count 199 (150-375) k/mm3 MPV 10.8 H (7.4-10.4) fl Immature Gran % (Auto) 0.3 (0-0.5) % Neut % (Auto) 85.0 H (45.5-73.1) % Lymph % (Auto) 9.8 L (18.3-44.2) % [place] % (Auto) 4.3 (2.6-8.5) % Eos % (Auto) 0.3 (0-4.4) % Baso % (Auto) 0.3 (0.2-1.2) % Lymph # (Auto) 0.97 (0.9-3.2) K/mm3 [place] # (Auto) 0.4 (0.1-0.6) K/mm3 Eos # (Auto) 0.0 (0-0.3) K/mm3 Baso # (Auto) 0.0 (0.0-0.1) K/mm3 Abs Immat Gran (auto) 0.03 (0.00-0.031) K/mm3 Absolute Neuts (auto) 8.4 H (1.3-6.7) K/mm3 Absolute Nucleated RBC 0.000 (0.0-0.012) K/mm3 Nucleated RBC % 0.0 (0.0-0.2) % Sodium 138 (137-145) mmol/L Potassium 3.9 (3.4-5.0) mmol/L Chloride 104 (98-107) mmol/L Carbon Dioxide 22 (22-30) mmol/L Anion Gap 12 (4-12) mmol/L BUN 18 (9-20) mg/dL Creatinine 0.94 (0.7-1.3) mg/dL Estim Creat Clear Calc 95 ml/min Estimated GFR > 60 (59 - ) Glucose 149 H (65-110) mg/dL Calcium 8.8 (8.4-10.2) mg/dL Total Bilirubin 1.3 (0.2-1.3) mg/dL AST 86 H (17-59) U/L ALT 94 H (6-50) U/L Alkaline Phosphatase 101 (38-126) U/L Total Protein 7.0 (6.3-8.2) g/dL Albumin 4.2 (3.5-5.1) g/dL Lipase 72 (23-300) U/L Urine Color Yellow (Yellow) Urine Appearance Clear (Clear) Urine pH 6.0 (5.0-9.0) Ur Specific [place] 1.017 (1.001-1.035) Urine Protein Negative (Negative) mg/dL Urine Glucose (UA) Negative (Negative) mg/dL Urine Ketones Negative (Negative) mg/dL Ur Blood (Man) Negative (Negative) Urine Nitrate Negative (Negative) Urine Bilirubin Negative (Negative) Urine Urobilinogen 0.2 (<2.0) mg/dL Leukocyte Esterase Rfl Negative (Negative) MALATHI/UL Imaging Data Radiologist's impression: ITS Impressions Abdomen/Pelvis CT 08/29/24 09:50 Impression: No acute abnormality. Diffuse hepatic steatosis. Discharge Plan Discharge Clinical Impression: Abdominal wall pain Patient Disposition: Home, Self-Care Condition: Stable Instructions: Abdominal Pain (ED) Additional Instructions: Return to the emergency department if you develop severe abdominal pain, severe nausea and vomiting to the point where you are unable to keep down fluids, if you develop chest pain or difficulty breathing, blood in your stool, dizziness or fainting, or if you develop any other new or concerning symptoms as these could be signs of more serious medical illness. Try to stay well hydrated. Patient Language: Bangladeshi Prescriptions: New cyclobenzaprine 10 mg tablet 10 mg PO TID PRN (Reason: muscle spasm) Qty: 20 0RF naproxen 375 mg tablet 375 mg PO BID Qty: 14 0RF No Action losartan 25 mg tablet See Rx Instructions .ROUTE .COMPLEX Qty: 90 1RF Dose Instruction: Take 1 tablet by mouth once daily Rx Instructions: Take 1 tablet by mouth once daily gabapentin 300 mg capsule 300 mg PO BID Qty: 60 2RF Rx Instructions: May increase to 2 capsules at bedtime if needed and may add 1 capsule in the morning and 2 at bedtime if the pain persists, maximum 3 capsules indomethacin 75 mg capsule, extended release 75 mg PO DAILY Qty: 30 0RF pseudoephedrine HCl 60 mg tablet 60 mg PO Q4-6H PRN (Reason: nasal congestion) Qty: 10 0RF Rx Instructions: DNExceed 4 doses/24h omeprazole 40 mg capsule,delayed release(DR/EC) 40 mg PO DAILY Qty: 30 11RF tizanidine 2 mg capsule 2 mg PO TID PRN (Reason: muscle spasticity) Qty: 60 1RF Rx Instructions: may take 1 or 2 capsules at bedtime only and increase to daytime if necessary. Sedation can occur Follow-up/Referrals: Terri Jackson MD [Physician] - 1 Week Marisela Severino MD [Primary Care Provider] -
[2024-08-29] MEDS: ONDANSETRON INJ 4 MG/2 ML VIAL IV PUSH (10:16)
[2024-08-29] MEDS: MORPHINE SULFATE (*CRX) 4 MG/ML INJ IV PUSH (10:16)
[2024-08-29] MEDS: SODIUM CHLORIDE 0.9% IV 1,000 ML 999 ML IV CONT (10:17)
[2024-08-29 10:32] LABS: Add Urine Microscopic? NO; Appearance Urine Clear (Clear); Bilirubin Urine Negative (Negative); Blood Urine Negative (Negative); Color Urine Yellow (Yellow); Glucose Urine UA Negative (Negative); Ketones Urine Negative (Negative); Leukocyte Esterase Ur Negative LEU/UL (Negative); Nitrate Urine Negative (Negative); Protein Urine Negative (Negative); Specific Grav Ur 1.017 (1.001-1.035); Urobilinogen Urine 0.2 mg/dL (<2.0)
== END 2024-08-29 13:38 | disposition home or self-care (01) ==
PROVIDERS: Emergency Provider Emergency Medicine; PCP Psychiatry & Neurology Neurology
DX: R10.32 Left lower quadrant pain (principal); I10 Essential (primary) hypertension; K21.9 Gastro-esophageal reflux disease without esophagitis
CPT/HCPCS: 36415; 74177; 80053; 81003; 83690; 85025; 96361; 96374; 96375; 99284; J2270; J2405; J7030; Q9967

== ENCOUNTER 2024-10-05 00:29 | Day surgery (SDC) | payer BC, SELFPAY ==
[2024-10-03 09:51] VITALS: BMI 31.0
--- OUTSIDE RECORDS SUMMARY | 2024-10-05 00:33 | XMS_ITS | Data Portability ---
Author Organization [facility] [place] Leonard Address [address] [facility] [place] [address] Care Team Providers Care Automobile Mechanic Name Role Phone WILLIAN DESIR Primary Care Provider Assessment Encounter Date Assessment Date Assessment LastModified by Organization Details LastModified Time 08/25/2024 08/25/2024 called patient 08/29/24 and states he had more pain and is in [facility] right now getting CT scan. Not available 08/29/2024 10:49:30 Plan of Treatment Reminders Order Date Submit Date Provider Last Modified By Organization Details Last Modified Time Details Appointments ANY 15 2024 08:15A M DAMIEN HERNADEZ Not available Not available Not available Lab lipid panel, serum 2022 023 [facility], [address] [place] [address], [address], [place], [address], 12/18/2022 09:14:26 CMP, serum or plasma 2022 023 [facility], [address] [place] [address], [address], [place], [address], 12/18/2022 09:14:26 albumin/c reatinine , mass ratio, urine 2022 023 [facility], [address] [place] [address], [address], [place], [address], 12/18/2022 09:14:25 Referral dermatolo gist referral 2022 023 Mickie Eisenberg MD (Dermatology) , [address] [facility], [facility] [address], [address], [place], [address], 12/17/2022 12:11:47 physical therapist referral [address] (Outpatient Physical Therapy), [address], [place], [address], 12/17/2022 12:11:47 Procedures None recorded. Surgeries None recorded. Imaging XR, knee 2022 023 [facility], [address] [facility], [place], [address], 12/23/2022 00:20:20 Medication Orders naproxen 500 mg tablet 2023 024 [facility], [address] [place], [address], 11/16/2023 14:34:23 ondansetr on HCl 4 mg tablet [address] [facility], [address] [place], [address], 11/16/2023 14:27:57 sumatript an 50 mg tablet [address] [facility], [address] [place], [address], 11/16/2023 14:27:05 trazodone 50 mg tablet [address] [facility], [address] [place], [address], 11/16/2023 14:27:09 naproxen 500 mg tablet 2022 023 [facility], [address] [place], [address], 12/17/2022 12:24:42 losartan 25 mg tablet 2022 023 [facility], [address] [facility], [place], [address], 12/17/2022 12:11:47 Patient TargetsNo targets recorded. Patient Instructions Encounter Date Encounter Id Patient Instructions Last Modified By Organization Details Last Modified Time 12/17/2022 [id number] A healthy lifestyle: care instructions Not available 12/17/2022 12:11:47 S ndrome piriforme: ejercicios - [piriformis syndrome: exercises] Not available 12/17/2022 12:11:47 11/16/2023 [id number] headache: care instructions Not available 11/16/2023 14:36:27 aprenda sobre la presi n arterial homa - [learning about high blood pressure] Not available 11/16/2023 14:34:00 08/25/2024 [id number] A healthy lifestyle: care instructions Not available 08/29/2024 10:50:35 Reason for Referral Physical Therapist Referral for Pain of bilateral knee regions Referring Physician: Willian Desir Interventionist, Encounter Date: 12/17/2022 Embossing Unit Operator Referral for L esion of skin of right ear Referring Physician: Willian Desir Interventionist, Encounter Date: 12/17/2022 Results Created Date Observation Date Name Description Value Unit Range Abnormal Flag Note LastModifiedBy Organization Detail LastModifiedTime 12/18/1912/18/2022 ALBUM IN/CR EATIN INE RATIO ,URIN E creatinine, urine 190.4 mg/dL notest ab. Not Available [facility] ([facility]) [address] [place], [address], 12/18/2022 09:14:25 12/18/1912/18/2022 ALBUM IN/CR EATIN INE RATIO ,URIN E albumin, urine 54.6 ug/mL notest ab. Not Available [facility] ([facility]) [address] [facility], [place], [address], 12/18/2022 09:14:25 12/18/19 23 12/18/2022 ALBUM IN/CR EATIN INE RATIO ,URIN E alb/creat ratio 29 mg/g_ creat 0-29 Karlene l: 0 - 29 Moder ately incre ased: 30 - 300 Sever mirna incre ased: >300 Not Available [facility] ([facility]) [address] [place], [address], 12/18/2022 09:14:25 12/18/19 23 12/18/2022 LIPID PANEL cholesterol, total 109 mg/dL 100-19 9 Not Available [facility] ([facility]) [address] [place], [address], 12/18/2022 09:14:26 12/18/19 23 12/18/2022 LIPID PANEL triglyceride s 116 mg/dL 0-149 Not Available [facility] ([facility]) [address] [place], [address], 12/18/2022 09:14:26 12/18/19 23 12/18/2022 LIPID PANEL HDL cholesterol 34 mg/dL >39 below low normal Not Available [facility] ([facility]) [address] [place], [address], 12/18/2022 09:14:26 12/18/19 23 12/18/2022 LIPID PANEL VLDL cholesterol katie 21 mg/dL 5-40 Not Available [facility] ([facility]) [address] [place], [address], 12/18/2022 09:14:26 12/18/19 23 12/18/2022 LIPID PANEL LDL chol calc ([facility]) 54 mg/dL 0-99 Not Available [facility] ([facility]) [address] [place], [address], 12/18/2022 09:14:26 12/18/19 23 12/18/2022 COMP. METAB OLIC PANEL (14) glucose 95 mg/dL 70-99 Not Available [facility] ([facility]) [address] [facility] [place], [address], 12/18/2022 09:14:26 12/18/19 23 12/18/2022 COMP. METAB OLIC PANEL (14) BUN 19 mg/dL 6-20 Not Available [facility] ([facility]) [address] [facility] [place], [address], 12/18/2022 09:14:26 12/18/19 23 12/18/2022 COMP. METAB OLIC PANEL (14) creatinine 1.06 mg/dL 0.76-1 .27 Not Available [facility] ([facility]) [address] [facility] [place], [address], 12/18/2022 09:14:26 12/18/19 23 12/18/2022 COMP. METAB OLIC PANEL (14) eGFR 92 mL/mi n/1.7 3 >59 Not Available [facility] ([facility]) [address] [facility] [place], [address], 12/18/2022 09:14:26 12/18/19 23 12/18/2022 COMP. METAB OLIC PANEL (14) BUN/creatini ne ratio 18 9-20 Not Available [facility] ([facility]) [address] [facility] [place], [address], 12/18/2022 09:14:26 12/18/19 23 12/18/2022 COMP. METAB OLIC PANEL (14) sodium 138 mmol/ L 134-14 4 Not Available [facility] ([facility]) [address] [facility] [place], [address], 12/18/2022 09:14:26 12/18/19 23 12/18/2022 COMP. METAB OLIC PANEL (14) potassium 4.5 mmol/ L 3.5-5. 2 Not Available [facility] ([facility]) [address] [facility] [place], [address], 12/18/2022 09:14:26 12/18/19 23 12/18/2022 COMP. METAB OLIC PANEL (14) chloride 103 mmol/ L 96-106 Not Available [facility] ([facility]) [address], [place], [address], 12/18/2022 09:14:26 12/18/19 23 12/18/2022 COMP. METAB OLIC PANEL (14) carbon dioxide, total 22 mmol/ L 20-29 Not Available [facility] ([facility]) [address], [place], [address], 12/18/2022 09:14:26 12/18/19 23 12/18/2022 COMP. METAB OLIC PANEL (14) calcium 9.3 mg/dL 8.7-10 .2 Not Available [facility] ([facility]) [address] [facility], [place], [address], 12/18/2022 09:14:26 12/18/19 23 12/18/2022 COMP. METAB OLIC PANEL (14) protein, total 7.0 g/dL 6.0-8. 5 Not Available [facility] ([facility]) [address] [facility] [place], [address], 12/18/2022 09:14:26 12/18/19 23 12/18/2022 COMP. METAB OLIC PANEL (14) albumin 4.7 g/dL 4.0-5. 0 Not Available [facility] ([facility]) [address] [facility] [place], [address], 12/18/2022 09:14:26 12/18/19 23 12/18/2022 COMP. METAB OLIC PANEL (14) globulin, total 2.3 g/dL 1.5-4. 5 Not Available [facility] ([facility]) [address] [facility] [place], [address], 12/18/2022 09:14:26 12/18/19 23 12/18/2022 COMP. METAB OLIC PANEL (14) A/G ratio 2.0 1.2-2. 2 Not Available [facility] ([facility]) [address] [facility] [place], [address], 12/18/2022 09:14:26 12/18/19 23 12/18/2022 COMP. METAB OLIC PANEL (14) bilirubin, total 1.5 mg/dL 0.0-1. 2 above high normal Not Available [facility] ([facility]) [address] [place], [address], 12/18/2022 09:14:26 12/18/19 23 12/18/2022 COMP. METAB OLIC PANEL (14) alkaline phosphatase 98 IU/L 44-121 Not Available [facility] ([facility]) [address] [place], [address], 12/18/2022 09:14:26 12/18/19 23 12/18/2022 COMP. METAB OLIC PANEL (14) AST (SGOT) 42 IU/L 0-40 above high normal Not Available [facility] ([facility]) [address] [place], [address], 12/18/2022 09:14:26 12/18/19 23 12/18/2022 COMP. METAB OLIC PANEL (14) ALT (SGPT) 69 IU/L 0-44 above high normal Not Available [facility] ([facility]) [address] [place], [address], 12/18/2022 09:14:26 12/19/19 23 12/20/2022 ACUTE HEPAT ITIS hep A Ab, IgM Negati ve negati ve Not Available [facility] ([facility]) [address] [place], [address], 12/20/2022 09:13:25 12/19/19 23 12/20/2022 ACUTE HEPAT ITIS HBsAg screen Negati ve negati ve Not Available [facility] ([facility]) [address] [facility], [place], [address], 12/20/2022 09:13:25 12/19/19 23 12/20/2022 ACUTE HEPAT ITIS hep B core Ab, IgM Negati ve negati ve Not Available [facility] ([facility]) [address] [facility], [place], [address], 12/20/2022 09:13:25 12/19/19 23 12/20/2022 ACUTE HEPAT ITIS HCV Ab Non Reacti ve nonrea ctive Not Available [facility] ([facility]) [address] [place], [address], 12/20/2022 09:13:25 12/19/19 23 12/20/2022 HEPAT IC FUNCT ION PANEL (7) protein, total 6.7 g/dL 6.0-8. 5 Not Available [facility] ([facility]) [address] [place], [address], 12/20/2022 09:13:26 12/19/19 23 12/20/2022 HEPAT IC FUNCT ION PANEL (7) albumin 4.6 g/dL 4.0-5. 0 Not Available [facility] ([facility]) [address] [place], [address], 12/20/2022 09:13:26 12/19/19 23 12/20/2022 HEPAT IC FUNCT ION PANEL (7) bilirubin, total 1.7 mg/dL 0.0-1. 2 above high normal Not Available [facility] ([facility]) [address] [place], [address], 12/20/2022 09:13:26 12/19/19 23 12/20/2022 HEPAT IC FUNCT ION PANEL (7) bilirubin, direct 0.33 mg/dL 0.00-0 .40 Not Available [facility] ([facility]) [address] [facility] [place], [address], 12/20/2022 09:13:26 12/19/19 23 12/20/2022 HEPAT IC FUNCT ION PANEL (7) alkaline phosphatase 88 IU/L 44-121 Not Available [facility] ([facility]) [address] [facility] [place], [address], 12/20/2022 09:13:26 12/19/19 23 12/20/2022 HEPAT IC FUNCT ION PANEL (7) AST (SGOT) 34 IU/L 0-40 Not Available [facility] ([facility]) [address] [facility] [place], [address], 12/20/2022 09:13:26 12/19/19 23 12/20/2022 HEPAT IC FUNCT ION PANEL (7) ALT (SGPT) 67 IU/L 0-44 above high normal Not Available [facility] ([facility]) [address] [facility], [place], [address], 12/20/2022 09:13:26 12/19/19 23 12/20/2022 GGT GGT 90 IU/L 0-65 above high normal Not Available [facility] ([facility]) [address] [facility], [place], [address], 12/20/2022 09:13:27 12/19/19 23 12/20/2022 INTER PRETA TION: interpretati on: Commen t Not infec daliln with HCV unles s early or acute infec tion is suspe cted (whic h may be delay ed in an immun ocomp romis ed indiv idual ), or other evide nce exist s to indic ate HCV infec tion. Not Available [facility] ([facility]) [address] [facility], [place], [address], 12/20/2022 09:13:26 12/23/19 23 12/22/2022 XR, knee No observ [facility]ion [facility] [address] [facility], [place], [address], 01/13/2023 15:09:20 01/20/20 23 01/19/2023 US, liver No observ ation record ed. [address], [place], [address], 01/20/2023 14:05:45 11/15/19 24 11/15/2023 XR, chest , 2 view No observ ation record ed. [address], [place], [address], 11/16/2023 14:02:09 11/15/19 24 11/15/2023 CT, head + brain , w/o contr ast No observ ation record ed. [address], [place], [address], 11/16/2023 14:00:59 11/16/19 24 11/15/2023 CT, angio gram, head + neck, w/ contr ast No observ ation record ed. [address], [place], [address], 11/16/2023 14:01:44 Result Notes None recorded. Problems Name Problem SNOMED Code Status Onset Date Resolution Date Notes Provider Name and Address Organization Details Recorded Time Essential hypertensio n 39284841 Active 2022 DAMIEN HERNADEZ Attn: John rios,[address] [facility], [place], [address], [place] [facility] [place] 3 12:25:20 Overweight 342557314 Active 2022 DAMIEN HERNADEZ Attn: John rios,[address] [facility], [place], [address], [place] [facility] 3 12:25:21 Gastroesoph ageal reflux disease 195192296 Active 2022 DAMIEN HERNADEZ Attn: John rios,[address] [facility], [place], [address], [place] [facility] 3 12:25:24 Low back pain 997253845 Active 2022 DAMIEN HERNADEZ Attn: John rios,[address] [facility], [place], [address], [place] [facility] 3 12:25:25 Multiple joint pain 21974314 Active 2022 DAMIEN HERNADEZ Attn: John rios,[address] [facility], [place], [address], [place] [facility] 3 12:25:28 Pain of bilateral knee regions 7434230128688 02 Active 2022 DAMIEN HERNADEZ Attn: John rios,[address] [facility], [place], [address], [place] [facility] 3 12:25:29 Lesion of skin of right ear 7793743309099 9106 Active 2022 DAMIEN HERNADEZ Attn: John rios,[address] [facility], [place], [address], [place] [facility] 3 12:25:32 Insomnia 316287552 Active 2022 DAMIEN HERNADEZ Attn: John rios,[address] [facility], [place], [address], [place] [facility] 3 12:25:34 Headache 16988913 Active 2023 DAMIEN HERNADEZ Attn: John rios,[address] [facility], [place], [address], [place] [facility] 4 14:34:02 Problem Notes None recorded. Procedures Surgical History None recorded. Imaging Results Imaging Date Name Status LastModified by Organiz ation Details LastModified Time 12/22/2022 XR, knee completed [address], [address], 01/13/2023 15:09:20 01/19/2023 US, liver completed [address], [place], [address], 01/20/2023 14:05:45 11/15/2023 XR, chest, 2 view completed [address], [place], [address], 11/16/2023 14:02:09 11/15/2023 CT, head + brain, w/o contrast completed [address], [place], [address], 11/16/2023 14:00:59 11/15/2023 CT, angiogram, head + neck, w/ contrast completed [address], [place], [address], 11/16/2023 14:01:44 Procedure Notes None recorded. Medical Equipment None Reported. Allergies Allergen ID Allergen Name Allergen Category Reaction Reaction Severity Criticality Documentation Date Start Date Code Code System Note Provider Name and Address Organization Details Recorded Time 636859 amoxicill in medicatio n swelling Not available Not available 12/17/2022 723 RxNorm Not Available Not Available Not Available Medications Name Sig Start Date Stop Date Status Note LastModified by Organization Details LastModified Time eq sinus 12-hour 120mg tab TAKE 1 TABLET BY MOUTH EVERY 12 HOURS NEEDED FOR NASAL CONGESTIO N active Not Available Not Available No t Available binaxnow cov kit home delfin 12/17 completed Not Available Not Available Not Available cyclobenzap rine 10 mg tablet TAKE 1 TABLET BY MOUTH THREE TIMES DAILY NEEDED FOR MUSCLE SPASM active Not Available Not Available No t Available naproxen 375 mg tablet TAKE 1 TABLET BY MOUTH TWICE DAILY active Not Available Not Available No t Available trazodone 50 mg tablet TAKE 1 TABLET BY MOUTH ONCE DAILY 11/15 completed Not Available Not Available Not Available azithromyci n 250 mg tablet TAKE 2 TABLETS BY MOUTH ON DAY 1, AND THEN TAKE 1 TABLET BY MOUTH ONCE A DAY ON DAY 2 THROUGH DAY 5 12/17 completed Not Available Not Available Not Available ondansetron HCl 4 mg tablet TAKE 2 TABLETS BY MOUTH TWICE DAILY NEEDED FOR 7 DAYS 11/15 completed Not Available Not Available Not Available sumatriptan 50 mg tablet TAKE 1 TABLET BY MOUTH NOW AND THEN MAY REPEAT AFTER 2 HOURS IF MIGRAINE DOES NOT RESOLVE 11/15 completed Not Available Not Available Not Available omeprazole 40 mg capsule,del ayed release TAKE 1 CAPSULE BY MOUTH ONCE DAILY active Not Available Not Available No t Available dicyclomine 20 mg tablet TAKE 1 TABLET BY MOUTH EVERY 6 HOURS NEEDED ABDOMINAL PAIN 11/15 completed Not Available Not Available Not Available pantoprazol e 40 mg tablet,cedric yed release TAKE 1 TABLET BY MOUTH IN THE MORNING 11/15 completed Not Available Not Available Not Available hyoscyamine sulfate 0.125 mg tablet TAKE 1 TABLET BY MOUTH THREE TIMES DAILY NEEDED FOR DYSPEPSIA 12/17 completed Not Available Not Available Not Available losartan 25 mg tablet Take 1 tablet by mouth once daily 2024 active Not Available Not Available Not Avai lable gabapentin 300 mg capsule TAKE 1 CAPSULE BY MOUTH ONCE DAILY AT BEDTIME MAY INCREASE TO 2 CAPSULES AT BEDTIME IF NEEDED AND MAY ADD 1 CAPSULE IN THE MORNING AND 2 AT BEDTIME IF PAIN PERSISTS MAX 3 CAPSULES PER DAY active Not Available Not Available No t Available omeprazole 20 mg capsule,del ayed release TAKE 1 CAPSULE BY MOUTH ONCE DAILY FOR 30 DAYS 11/15 completed Not Available Not Available Not Available ibuprofen 600 mg tablet TAKE 1 TABLET BY MOUTH EVERY 6 HOURS NEEDED FOR PAIN active Not Available Not Available No t Available methylpredn isolone 4 mg tablets in a dose pack TAKE DIRECTED 12/17 completed Not Available Not Available Not Available indomethaci n ER 75 mg capsule,ext ended release TAKE 1 CAPSULE BY MOUTH ONCE DAILY active Not Available Not Available No t Available ondansetron 4 mg disintegrat ing tablet DISSOLVE 2 TABLETS IN MOUTH TWICE DAILY NEEDED FOR 5 DAYS active Not Available Not Available No t Available fluticasone propionate 50 mcg/actuati on nasal spray,suspe nsion [place] 1 spray every day by intranasa l route. 2023 active Not Available Not Available Not Avai lable naproxen 500 mg tablet Take 1 tablet every 12 hours by oral route for 14 days. active Not Available Not Available No t Available tizanidine 2 mg capsule TAKE 1 CAPSULE BY MOUTH THREE TIMES DAILY NEEDED FOR MUSCLE SPASM. MAY TAKE 1 OR 2 CAPSULES AT BEDTIME ONLY AND INCREASE TO DAYTIME IF NECESSARY . SEDATION CAN OCCUR. active Not Available Not Available No t Available BinaxNOW COVID-19 Ag Self Test kit Use as Directed on the Package 12/17 completed Not Available Not Available Not Available Vitals Date Recorded Body height Body mass index (BMI) Body weight Systolic blood pressure Diastolic blood pressure Provider Name and Address Organization Details Last Updated DateTime 12/17/2022 177.8 cm 27.3 kg/m2 75153.35 g 130 mm[Hg] 80 mm[Hg] Tyra Ferrari [facility] 3 11:22:27 Date Recorded Body height Body mass index (BMI) Body weight Oxygen saturation Oxygen saturation in Arterial blood by Pulse oximetry Heart rate Systolic blood pressure Diastolic blood pressure Provider Name and Address Organization Details Last Updated DateTime 3 177.8 cm 27.3 kg/m2 68892.5 5 g 98 % 98 % 74 /min 118 mm[Hg] 72 mm[Hg] Tyra Ferrari MA [facility] 3 12:41:32 Date Recorded Respiratory rate Systolic blood pressure Diastolic blood pressure Provider Name and Address Organization Details Last Updated DateTime 05/07/2023 18 /min 120 mm[Hg] 86 mm[Hg] DAMIEN SWANSON Attn: Accounting, [address] [place], [address], [facility] 05/08/2023 09:08:17 Date Recorded Body height Body mass index (BMI) Body weight Heart rate Oxygen saturation Oxygen saturation in Arterial blood by Pulse oximetry Systolic blood pressure Diastolic blood pressure Provider Name and Address Organization Details Last Updated DateTime 4 177.8 cm 29 kg/m2 74411.6 6 g 84 /min 97 % 97 % 153 mm[Hg] 76 mm[Hg] Tyra Ferrari MA [facility] 4 14:02:23 Date Recorded Body height Body mass index (BMI) Body weight Heart rate Oxygen saturation Oxygen saturation in Arterial blood by Pulse oximetry Provider Name and Address Organization Details Last Updated DateTime 5 177.8 cm 28.6 kg/m2 06885.8 8 g 90 /min 98 % 98 % Tyra Ferrari MA [facility] 17:13:55 Date Recorded Systolic blood pressure Diastolic blood pressure Provider Name and Address Organization Details Last Updated DateTime 08/25/2024 132 mm[Hg] 88 mm[Hg] DAMIEN HERNADEZ Attn: Accounting,[address] [facility], [place], [address], [place] [facility] 08/29/2024 10:50:32 Social History Question Answer Notes LastModified by Organizat ion Details LastModified Time What Is Your Level Of Alcohol Consumption? None Information not available 05/07/2023 In The 14 Days Before Symptom Onset, Have You Had Close Contact With A Laboratory-confirm ed COVID-19 While That Case Was Ill? No Information n ot available 12/17/2022 In The 14 Days Before Symptom Onset, Have You Had Close Contact With A Person Who Is Under Investigation For COVID-19 While That Person Was Ill? No Information not available 12/17/2022 Have You Been To An Area Known To Be High Risk For COVID-19? No Information not available 12/17/2022 What Was The Date Of Your Most Recent Tobacco Screening? 08/25/2024 Information not available 08/25/2024 What Is Your Relationship Status? Information not available 12/17/2022 Do You Have Smoke And Carbon Monoxide Detectors In Your Home? Yes Information not available 12/17/2022 Are You Passively Exposed To Smoke? Yes Information no t available 12/17/2022 On What Date Was Tobacco Cessation Counseling Provided? 08/25/2024 Information not available 08/25/2024 Sex: Male Functional Status None recorded. Mental Status None recorded. Family History Relationship Description Onset Age of this Age Resolved Age Notes LastModified by Organization Details LastModified Time Father No current problems or disability Not available 12/17 11:20:02 Father Diabetes mellitus Not available 2022 11:20:20 Mother No current problems or disability Not available 12/17 11:20:02 Medical History No medical history recorded. Immunizations Vaccine Type Date Status Note Provider Nam e and Address Organization Details Recorded Time Tdap 12/17/2022 completed DAMIEN HERNADEZ Attn: Accounting,[address], [place], [address], [facility] 12/17/2022 13:55:17 Past Encounters Encounter ID Performer Location Encounter Start Date Encounter Closed Date Diagnosis/Indication Diagnosis SNOMED-CT Code Diagnosis ICD10 Code Diagnosis Note [id number] DAMIEN HERNADEZ [facility] [address] [place] [address] 12/17/2022 11:14:04 12/17/2022 11:41:40 Overweight 710882055 E66.3 Essential hypertension 02396095 I10 dx 3 years agocomplai nt on losartan 25 mgadvised no smoking cigarsDASH DIET Cholesterol screening 27 4438838 Z13.220 Gastroesop hageal reflux disease 248523957 K21.9 wean off. education given about reflex reflux. Low back pain 088337854 M54.50 2 weeks of lower back pain with radiation to hips Multiple joint pain 3567 8005 M25.50 b/l knee , wrists felt 3-4 x per day. worse after lifting heavy things at work and weather changes. Pain of bi lateral knee regions 8524907869 52714 M25.561 b/l knee pain all over x years multiple days of the weeworse with weather changes or heavy liftinghas not had xray or done PT yet PEX: normal ROM, no swelling or bony abnormalit y. - PT Insomnia 061199707 G47.0 0 Discussed sleep hygiene - no tv, electronic s in room - go to bed at same time every night - Avoid eating 1-2 hours before bed - Do no have any caffeine after 3 pm - if unable to sleep she is to leave room and read for 15 minutes. May repeat this multiple times. Goal is not to associate room with anxiety or work Lesion of skin of right ear 7619798153 0437652 H93.8X1 papule with regular borders and one color on right ear scaphia present for 6 yearswould like removal of thisdermat ology Administra tion of diphtheria, pertussis, and tetanus vaccine [id number] Z23 given today [id number] [facility] [address] [place] [address] 12/19/2022 09:35:16 12/19/2022 09:57:55 [id number] [facility] [address] [place] [address] 05/07/2023 12:09:03 05/07/2023 13:07:27 Nausea [id number] R11.0 a/w headachesn o vomiting, diarrhea, constipati on, or abd paintrial zofran Migraine [id number] G43.90 9 x5 daysthrobb ing around his entire heada/w nausea and dizzinessn o relief with OTC medsno concerning sxPEx- nl, CN II-XII intact, romberg negative, EOMI intact without dizzinessu nknown etiology, BP under control, glasses 1 yr old, adequate sleep, food, fluid intakecoul d be related to increase stress and anxiety with new jobtrial imitrex f8lzpxe excedrin migraineRT W on 05/11/23, encouraged rest and increase fluid intakef/u in 1 wk if sx are not improved [id number] [facility] [address] [place] [address] 11/16/2023 13:48:32 11/16/2023 14:37:47 Headache [id number] R51.9 left sided headache resulting in ER visit. normal labs, CT head, CTA neck/head, cxr.has neurology f/y 12/09/23advi sed return to ER is worst headache of new neurologic al sx Essential hypertension [id number] I10 elevated BP and increased weight from last visitadvis ed checking at home and f/u as he states he gets nervous coming heregood compliance on losartan 25 mgadvised no smoking cigarsDASH DIET Temporoman dibular joint disorder [id number] M26.609 tender on palpationo ne episode of pain with chewing [id number] [facility] [address] [place] [address] 08/25/2024 17:05:26 08/25/2024 17:35:16 Nausea and vomiting [id number] R11.2 one episode today of epigastric pain and vomiting w/o any more nausea, diarrhea, constipati on. no sick contacts. no recent travel. On exam he is midlly diffusely tender on abdomen. skin is dry and warm without color changes. Patient advised to seek ER if pain worsens, cannot keep down fluids or has fever.annie ent agrees Overweight [id number] E66 .3 Health Concerns Section Related Observation LastModified by Organization Detai ls LastModified Time None Recorded Concern Status LastModified by Organization Details LastModified Time None Recorded Advance Directives Directive None Recorded Payers Encounter Date Sequence Insurance Name Policy Number Policy Jimenez Covered Member ID Jimenez Member ID Guarantor Name 12/17/2022 1 [employer] [id number] Joseph I Juliana-Ra mirez [id number] Joseph Juliana Jigar 12/19/2022 1 [employer] [id number] Joseph I Juliana-Ra mirez [id number] Joseph Juliana Jigar 05/07/2023 1 [employer] [id number] Joseph I Juliana-Ra mirez [id number] Joseph Juliana Jigar 11/16/2023 1 [employer]: [place] [id number] Joseph I Juliana-Ra mirez [id number] Joseph Juliana Jigar 08/25/2024 1 [employer]: [place]) [id number] Joseph Greene Juliana-Ra mirez [id number] Joseph Juliana Jigar Notes Date Note Type Note Provider Name and Address Organization Details Recorded Time 12/17/2022 text/html Joseph is a 37 YO HM here to establish care and discuss multiple complaints last PCP Georgina Coronado MD 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 He says he has pain in his wrist, knees and lower back. lower back pain started 2 weeks ago and radiates to hips. He does not take anything for pain, I avoid pills. This is first episode. For his wrists and knee he described pain that is worse with weather changes and after work. His last provider told him he was too young for arthritis. He denies loss of urinary control, falls, saddle anesthesia. GERD started 5 years ago after gallbladder surgery. has taken pantoprazole 40 mg x 3 years. He says he cannot stop medication or it gets worse. Endoscopy ([facility]) and colonoscopy (Dr Stone) done 5 years ago were normal. He does eat tomato and spicy foods, my is Cymraes. HE drinks one dailt coca-cola with lunch. He puffs of cigar but does not inhale. Denies daily alcohol use, on occasion. He c/o of trouble sleeping x 3 years. Takes him 1+ hours most night of the week to fall asleep and wakes up multiple times. He denies depression or anxiety. denies Napping in the day, eating past, 7, sleeping with TV on, drinking caffeine past 3pm. htn: DX 3 years ago and complaint with losartan. no side effects. He has a lesion on his right ear that appeared and has grown. He wants it cut off. patient is fasting for labs today. would like tetanus shot. DAMIEN HERNADEZ Attn: Accounting[address] [place], [address], [facility] 12/17/2022 13:57:05 05/07/2023 text/html Pt presents with headaches, dizziness, and nausea x5 days. Reports that headache started first, describes as throbbing around his entire head. Taking tylenol without relief. He tried his 's amitriptyline 25 mg for headache prevention w/o relief. No headh trauma or injury. States that his headaches are so bad that it is making him nauseous. No blurred vision. His glasses are 1 yr old. He is able to keep food down. Denies vomiting, diarrhea, constipation, or abd pain. C/o dizziness x3 days. Describes as the room is spinning. Pt is sleeping well at night and drinks 3 bottles of water per day. He denies increased stress. attributes pt's symptoms to him starting a new job at work two weeks ago. His co-worker is on vacation. 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 Pt works 6 days/week. H/o HTN, checking BP at home, 120s/80s. DAMIEN SWANSON Attn: Accounting[address] [place], [address], [facility] 05/08/2023 09:12:17 11/16/2023 text/html [facility] to [place] [facility] for headache with tingling in face. CTA head neck normal, xray overall normal, covid/flu negative , CT head normal. Feels better today but stil has mild headache. had f/u with neurologist on December 08. needs refills on naproxen. denies cp, sob, worst headache, tingling/numbness, weakness DAMIEN HERNADEZ Attn: Accounting[address] [facility], [place], [address], [facility] 11/16/2023 14:36:39 08/25/2024 text/html one episode of vomiting today and nausea, no fever, chills, diarrhea. no sick contacts. Has eaten same foods as . Denies any alcohol use or new medications. DAMIEN HERNADEZ Attn: Accounting[address] [facility], [place], [address], [facility] 08/29/2024 10:50:45
--- OUTSIDE RECORDS SUMMARY | 2024-10-05 00:33 | XMS_ITS | Patient Health Summary ---
Author Organization [facility] Address [address] [place] [address] Care Team Providers Care Vehicle Body Sander Name Role Phone Unavailable Primary Care Provider Unavailabl e Note from [facility],non-owned Affiliates and Associated Physician Practices is amultiple site organization consisting of ambulatory clinics and hospital sitesin [place], [place], [place] and [place]. This disclosure is being madepursuant to the Care Everywhere program and may not contain all information available regarding this patient. Last updated 18.[facility] [employer] Social History Tobacco Use Types Packs/Day Years [...] Seq See Scanned Report 08/24/2019 3:38 PM COMPUTER INSTRUCTOR GENE DX Blood BLOOD SPECIMEN / Unknown Lab Venipuncture / Unknown 02/25/2019 4:34 PM CDT 02/25/2019 5:11 PM CDT Lew Garrett MD LAB - CHEMISTRY OR DERABLES GENE DX [address] [place] [address], [facility] [phone]
--- OUTSIDE RECORDS SUMMARY | 2024-10-05 00:33 | XMS_ITS | Clinical Summary ---
Author Organization [facility] Address [address] [place] [address] Care Team Providers Care Assembly Machine Operator Name Role Phone Marlen Mcmahon Primary Care Provider + Allergies Active Allergy Reactions Criticality Noted Date Comments Hydrocodone Anxiety,Palpitations High 09/28/2024 Medications aluminum-magnes ium hydroxide-simet hicone (MAALOX) suspension 200-200-20 mg/5 mL Take 20 mL by mouth 3 (three) times a day as needed for heartburn or cramping 354 mL Active Encounters Date Type Department Care Team Description 09/28/2024 4:00 PM CUTTING MACHINE OFFBEARER - 09/28/2024 7:35 PM CUTTING MACHINE OFFBEARER Emergency [facility] Emergency Department [address] [place] [address] Gregory Santiago MD Abdominal pain (Primary Dx); Elevated LFTs Discharge Disposition: Discharge to home or self care from Last 3 Months Social History Tobacco Use Types Packs/Day Years Used Date Smoking Tobacco: Never Assessed Personal Safety Answer Date Recorded Have you ever been in or are you currently in a harmful physical or emotional relationship or is someone making you feel afraid or unsafe? Denies 09/28/2024 Sex and Gender Information Value Date Recorded Sex Assigned at Not on file Legal Sex Male 8:08 PM CUTTING MACHINE OFFBEARER Gender Identity Not on file Sexual Orientation Not on file Last Filed Vital Signs Vital Sign Reading Time Taken Comments Blood Pressure 131/83 09/28/2024 7:30 PM CUTTING MACHINE OFFBEARER Pulse 76 09/28/2024 7:30 PM CUTTING MACHINE OFFBEARER Temperature 36.7 C (98 F) 09/28/2024 4:00 PM CUTTING MACHINE OFFBEARER Respiratory Rate 16 09/28/2024 7:30 PM CUTTING MACHINE OFFBEARER Oxygen Saturation 97% 09/28/2024 7:30 PM CUTTING MACHINE OFFBEARER Inhaled Oxygen Concentration - - Weight 87.1 kg (192 lb) 09/28/2024 1:34 PM CUTTING MACHINE OFFBEARER Height 167.6 cm (5' 6 ) 09/28/2024 1:34 PM CUTTING MACHINE OFFBEARER Body Mass Index 30.99 09/28/2024 1:34 PM CUTTING MACHINE OFFBEARER Plan of Treatment Health Maintenance Due Date Last Done Comments Depression Screening 1983 DTaP/Tdap/Td Vaccine (1 - Tdap) 1994 Varicella Vaccines (1 of 2 - 13+ 2-dose series) 1996 Hepatitis B Screening 2001 Regular Well Visit/Exam 18-64 2001 Influenza Vaccine (#1) 2024 Hepatitis C Screening Completed 09/28/2024 HPV Vaccines Aged Out No longer eligi ble based on patient's age to complete this topic Pneumococcal vaccine <65 Aged Out No longer eligible based on patient's age to complete this topic Procedures Procedure Name Priority Date/Time Associated Diagnosis Comments CT ABDOMEN PELVIS W CONTRAST ED 09/28/2024 6:00 PM CUTTING MACHINE OFFBEARER POCT CREATININE - DEVICE Routine 09/28/2024 4:36 PM CUTTING MACHINE OFFBEARER EGFR STAT 09/28/2024 4:16 PM CUTTING MACHINE OFFBEARER DIFFERENTIAL AUTO STAT 09/28/2024 4:1 6 PM CUTTING MACHINE OFFBEARER LIPASE STAT 09/28/2024 4:16 PM CUTTING MACHINE OFFBEARER COMPREHENSIVE METABOLIC PANEL STAT 09/28/2024 4:16 PM CUTTING MACHINE OFFBEARER CBC WITH AUTO DIFFERENTIAL STAT 09/28/2024 4:16 PM CUTTING MACHINE OFFBEARER from Last 3 Months Results * CT Abdomen Pelvis W Contrast (09/28/2024 6:00 PM CUTTING MACHINE OFFBEARER) Anatomical Region Laterality Modality Body N/A Computed Tomogra phy 09/28/2024 6:16 PM CUTTING MACHINE OFFBEARER Impressions 09/28/2024 8:38 PM CUTTING MACHINE OFFBEARER 1. No acute abnormality within the abdomen or pelvis. 2. Hepatic steatosis. Dictated by: Myles Lyn MD The radiology attending physician has personally reviewed this study, and had reviewed and/or edited this written report and agrees with it. Electronically signed by: Hardeep Albert M.D. Narrative 09/28/2024 8:38 PM CUTTING MACHINE OFFBEARER EXAMINATION: Computed tomography of the abdomen and pelvis with intravenous contrast HISTORY: Abdominal pain TECHNIQUE: Transaxial computed tomographic images of the abdomen and pelvis were obtained with intravenous contrast according to the standard protocol after the uneventful administration of 69 mL Opti-Ray 350 intravenous contrast. COMPARISON: None FINDINGS: Heart size normal. Abdominal aorta is normal. Elevation of the right hemidiaphragm with minimal right basilar atelectasis. No pleural effusion. Hepatic steatosis. Cholecystectomy with reservoir effect. Portal and splenic veins are patent. Pancreas, spleen, and adrenals are normal. Kidneys are normal. No hydronephrosis. Bladder is normal. No free pelvic fluid. Colon is normal in course and caliber. No bowel obstruction or free air. Distal esophagus, stomach, duodenum are normal. No abdominal or pelvic lymphadenopathy. No suspicious osseous lesions. Procedure Note Hardeep Albert MD - 09/28/2024 EXAMINATION: Computed tomography of the abdomen and pelvis with intravenous contrast HISTORY: Abdominal pain TECHNIQUE: Transaxial computed tomographic images of the abdomen and pelvis were obtained with intravenous contrast according to the standard protocol after the uneventful administration of 69 mL Opti-Ray 350 intravenous contrast. COMPARISON: None FINDINGS: Heart size normal. Abdominal aorta is normal. Elevation of the right hemidiaphragm with minimal right basilar atelectasis. No pleural effusion. Hepatic steatosis. Cholecystectomy with reservoir effect. Portal and splenic veins are patent. Pancreas, spleen, and adrenals are normal. Kidneys are normal. No hydronephrosis. Bladder is normal. No free pelvic fluid. Colon is normal in course and caliber. No bowel obstruction or free air. Distal esophagus, stomach, duodenum are normal. No abdominal or pelvic lymphadenopathy. No suspicious osseous lesions. IMPRESSION: 1. No acute abnormality within the abdomen or pelvis. 2. Hepatic steatosis. Dictated by: Myles Lyn MD The radiology attending physician has personally reviewed this study, and had reviewed and/or edited this written report and agrees with it. Electronically signed by: Hardeep Albert M.D. us Lidia Almaraz MD IMG CT PROCEDURES Final R esult * POCT creatinine (09/28/2024 4:36 PM CUTTING MACHINE OFFBEARER) Creatinine POC 1.2 0.8 - 1.3 mg/dL Blood 09/28/2024 4:36 PM CUTTING MACHINE OFFBEARER 09/28/2024 4:36 PM CUTTING MACHINE OFFBEARER us Gregory Santiago MD LAB POCT ORDERABLES - DE VICE Final Result [facility] Department [place] [address] * eGFR (09/28/2024 4:16 PM CUTTING MACHINE OFFBEARER) eGFR 81 >=60 mL/min/1. 73 m2 Comment: Interpretive Data Reference Interval Normal >/= 90 mL/min/1.73m2 Mildly decreased* 60 - 89 mL/min/1.73m2 Mildly to moderately decreased 45 - 59 mL/min/1.73m2 Moderately to severely decreased 30 - 44 mL/min/1.73m2 Severely decreased 15 - 29 mL/min/1.73m2 Kidney Failure < 15 mL/min/1.73m2 *Relative to young adult level Estimated glomerular filtration rate is determined by the 2020 CKD-EPI equation recommended by the National Kidney Foundation (A Unifying Approach to GFR Estimation: Recommendations of the NKF-ASK Task Force on Reassessing the Inclusion of Race in Diagnosing Kidney Disease, JASN 2020). The CKD-EPI equation should not be used for patients with unstable renal function and has not been validated in children and those over 70. Current interpretive data was last reviewed 2021. Blood 09/28/2024 4:16 PM CUTTING MACHINE OFFBEARER 09/28/2024 4:38 PM CUTTING MACHINE OFFBEARER us Gregory Santiago MD LAB BLOOD ORDERABLES Fin al Result [facility] Department [place] [address] * Differential, auto (09/28/2024 4:16 PM CUTTING MACHINE OFFBEARER) Neutrophil abs 5.7 1.5 - 6.5 K/cumm Imm gran abs 0.0 0.0 - 0.1 K/cumm [facility] Lymphocyte abs 2.1 0.8 - 3.3 K/cumm [facility] Monocyte abs 0.6 0.2 - 0.8 K/cumm [facility] Eosinophil abs 0.2 0.0 - 0.5 K/cumm [facility] Basophil abs 0.0 0.0 - 0.1 K/cumm [facility] Neutrophil pct 65.7 % [facility] Comment: Interpretive Data Percent cell count reference ranges are not reported, since discordance with absolute values may lead to misinterpretation of CBC data. Current Interpretive Data was last revised on 2017. Imm gran pct 0.2 % [facility] Comment: Interpretive Data Percent cell count reference ranges are not reported, since discordance with absolute values may lead to misinterpretation of CBC data. Current Interpretive Data was last revised on 2017. Lymphocyte pct 24.9 % [facility] Comment: Interpretive Data Percent cell count reference ranges are not reported, since discordance with absolute values may lead to misinterpretation of CBC data. Current Interpretive Data was last revised on 2017. Monocyte pct 7.0 % [facility] Comment: Interpretive Data Percent cell count reference ranges are not reported, since discordance with absolute values may lead to misinterpretation of CBC data. Current Interpretive Data was last revised on 2017. Eosinophil pct 1.9 % [facility] Comment: Interpretive Data Percent cell count reference ranges are not reported, since discordance with absolute values may lead to misinterpretation of CBC data. Current Interpretive Data was last revised on 2017. Basophil pct 0.3 % [facility] Comment: Interpretive Data Percent cell count reference ranges are not reported, since discordance with absolute values may lead to misinterpretation of CBC data. Current Interpretive Data was last revised on 2017. Blood 09/28/2024 4:16 PM CUTTING MACHINE OFFBEARER 09/28/2024 4:38 PM CUTTING MACHINE OFFBEARER Gregory Santiago MD LAB BLOOD ORDERABLES Fin al Result Performing Organization Address [facility] Co de Phone Number [facility] [place] [address] * (ABNORMAL) CBC with auto differential (09/28/2024 4:16 PM CUTTING MACHINE OFFBEARER) Pathologist [facility] WBC 8.6 3.8 - 9.9 K/cumm Hgb 15.9 13.0 - 17.5 g/dL [facility] Hct 44.1 38.9 - 50.3 % [facility] Plt 206 150 - 400 K/cumm [facility] MPV 11.1 9.1 - 12.3 fL [facility] RBC 5.21 4.30 - 5.80 M/cumm [facility] MCV 84.6 81.3 - 96.4 fL [facility] MCH 30.5 27.1 - 33.3 pg [facility] MCHC 36.1(H) 32.3 - 35.7 g/dL [facility] RDW CV 13.0 11.1 - 14.9 % [facility] RDW SD 39.5 35.7 - 48.1 fL [facility] NRBC abs 0.00 0.00 - 0.01 K/cumm [facility] Blood (Blood, Venous) 09/28/2024 4:16 PM CUTTING MACHINE OFFBEARER 09/28/2024 4:38 PM CUTTING MACHINE OFFBEARER Gregory Santiago MD LAB BLOOD ORDERABLES Fin al Result Performing Organization Address City/[facility]/ZIP Co de Phone Number [facility] [place] [address] * Lipase (09/28/2024 4:16 PM CUTTING MACHINE OFFBEARER) Pathologist [facility] Lipase 29 10 - 99 Units/L Blood (Blood, Venous) 09/28/2024 4:16 PM CUTTING MACHINE OFFBEARER 09/28/2024 4:38 PM CUTTING MACHINE OFFBEARER Gregory Santiago MD LAB BLOOD ORDERABLES Fin al Result [facility] Department [place] [address] * (ABNORMAL) Comprehensive metabolic panel (09/28/2024 4:16 PM CUTTING MACHINE OFFBEARER) Sodium 140 135 - 145 mmol/L Potassium, pl 4.1 3.3 - 4.9 mmol/L [facility] Chloride 103 97 - 110 mmol/L [facility] CO2 27 22 - 32 mmol/L [facility] Anion gap 10 2 - 15 mmol/L [facility] BUN 17 6 - 25 mg/dL [facility] Creatinine 1.16 0.80 - 1.30 mg/dL [facility] Glucose 95 70 - 199 mg/dL [facility] Comment: Interpretive Data Fasting glucose >/= 126 mg/dl is diagnostic for diabetes. Fasting is defined as no caloric intake for at least 8 hours. Fasting glucose between 100 mg/dl to 125 mg/dl is diagnostic of prediabetes. In a patient with classic symptoms of hyperglycemia or hyperglycemic crisis, a random glucose >/= 200 mg/dl is diagnostic for diabetes. In the absence of unequivocal hyperglycemia, results should be confirmed by repeat testing. The classification and Diagnosis of Diabetes Diabetes Care 2021; 46: S19-S40. Current interpretive data was last revised 2022. Calcium 9.5 8.5 - 10.3 mg/dL [facility] Bilirubin, total 1.1 0.1 - 1.2 mg/dL [facility] Protein, pl 7.4 6.5 - 8.5 g/dL [facility] Albumin 4.2 3.5 - 5.0 g/dL [facility] Alk phos 150(H) 40 - 130 Units/L [facility] ALT 104(H) 7 - 55 Units/L [facility] AST 56(H) 10 - 50 Units/L [facility] Blood 09/28/2024 4:16 PM CUTTING MACHINE OFFBEARER 09/28/2024 4:38 PM CUTTING MACHINE OFFBEARER us Gregory Santiago MD LAB BLOOD ORDERABLES Fin al Result [facility] Department [place] [address] from Last 3 Months Care Teams Assembly Machine Operator Relationship Specialty Start Date End Date Marlen Mcmahon PA [address] [place] [address] PCP - General Physician Autobody Technician 09/28/24
--- OUTSIDE RECORDS SUMMARY | 2024-10-05 00:33 | XMS_ITS | Referral Summary ---
Author Organization [facility] Address [address] [place] [address] Care Team Providers Care Crawler Crane Operator Name Role Phone Unavailable Primary Care Provider Unavailabl e Source Comments [facility],non-owned Affiliates and Associated Physician Practices is amultiple site organization consisting of ambulatory clinics and hospital sitesin [place], [place], [place] and [place]. This disclosure is being madepursuant to the Care Everywhere program and may not contain all information available regarding this patient. Last updated 18.[facility] Social History Tobacco Use Types Packs/Day Years Used Date Smoking Tobacco: Never Assessed Sex and Gender Information Value Date Recorded Sex Assigned at Not on file Gender Identity Not on file Sexual Orientation Not on file Plan of Treatment Not on file
--- OUTSIDE RECORDS SUMMARY | 2024-10-05 00:33 | XMS_ITS | Clinical Summary ---
Author Organization [facility] Care Team Providers Care Steel Tester Name Role Phone Unavailable Primary Care [...]
--- OUTSIDE RECORDS SUMMARY | 2024-10-05 00:33 | XMS_ITS | Referral Summary ---
Author Organization [facility] Address [address] [place] [address] Care Team Providers Care Roll Examiner Name Role Phone Marlen Mcmahon Primary Care Provider + Encounters Date Type Department Care Team Description 09/28/2024 4:00 PM DRAPERY CUTTER MACHINE - 09/28/2024 7:35 PM DRAPERY CUTTER MACHINE Emergency [facility] Emergency Department [address] [place] [address] Gregory Santiago MD Abdominal pain (Primary Dx); Elevated LFTs Discharge Disposition: Discharge to home or self care from Last 3 Months Allergies Active Allergy Reactions Criticality Noted Date Comments Hydrocodone Anxiety,Palpitations High 09/28/2024 Medications aluminum-magnes ium hydroxide-simet hicone (MAALOX) suspension 200-200-20 mg/5 mL Take 20 mL by mouth 3 (three) times a day as needed for heartburn or cramping 354 mL Active Social History Tobacco Use Types Packs/Day Years Used Date Smoking Tobacco: Never Assessed Personal Safety Answer Date Recorded Have you ever been in or are you currently in a harmful physical or emotional relationship or is someone making you feel afraid or unsafe? Denies 09/28/2024 Sex and Gender Information Value Date Recorded Sex Assigned at Not on file Legal Sex Male 8:08 PM DRAPERY CUTTER MACHINE Gender Identity Not on file Sexual Orientation Not on file Last Filed Vital Signs Vital Sign Reading Time Taken Comments Blood Pressure 131/83 09/28/2024 7:30 PM DRAPERY CUTTER MACHINE Pulse 76 09/28/2024 7:30 PM DRAPERY CUTTER MACHINE Temperature 36.7 C (98 F) 09/28/2024 4:00 PM DRAPERY CUTTER MACHINE Respiratory Rate 16 09/28/2024 7:30 PM DRAPERY CUTTER MACHINE Oxygen Saturation 97% 09/28/2024 7:30 PM DRAPERY CUTTER MACHINE Inhaled Oxygen Concentration - - Weight 87.1 kg (192 lb) 09/28/2024 1:34 PM DRAPERY CUTTER MACHINE Height 167.6 cm (5' 6 ) 09/28/2024 1:34 PM DRAPERY CUTTER MACHINE Body Mass Index 30.99 09/28/2024 1:34 PM DRAPERY CUTTER MACHINE Plan of Treatment Not on file Procedures Procedure Name Priority Date/Time Associated Diagnosis Comments CT ABDOMEN PELVIS W CONTRAST ED 09/28/2024 6:00 PM DRAPERY CUTTER MACHINE POCT CREATININE - DEVICE Routine 09/28/2024 4:36 PM DRAPERY CUTTER MACHINE EGFR STAT 09/28/2024 4:16 PM DRAPERY CUTTER MACHINE DIFFERENTIAL AUTO STAT 09/28/2024 4:1 6 PM DRAPERY CUTTER MACHINE LIPASE STAT 09/28/2024 4:16 PM DRAPERY CUTTER MACHINE COMPREHENSIVE METABOLIC PANEL STAT 09/28/2024 4:16 PM DRAPERY CUTTER MACHINE CBC WITH AUTO DIFFERENTIAL STAT 09/28/2024 4:16 PM DRAPERY CUTTER MACHINE from Last 3 Months Results * CT Abdomen Pelvis W Contrast (09/28/2024 6:00 PM DRAPERY CUTTER MACHINE) Anatomical Region Laterality Modality Body N/A Computed Tomogra phy 09/28/2024 6:16 PM DRAPERY CUTTER MACHINE Impressions 09/28/2024 8:38 PM DRAPERY CUTTER MACHINE 1. No acute abnormality within the abdomen or pelvis. 2. Hepatic steatosis. Dictated by: Myles Lyn MD The radiology attending physician has personally reviewed this study, and had reviewed and/or edited this written report and agrees with it. Electronically signed by: Hardeep Albert M.D. Narrative 09/28/2024 8:38 PM DRAPERY CUTTER MACHINE EXAMINATION: Computed tomography of the abdomen and [...] Electronically signed by: Hardeep Albert M.D. us Favour Tanner Almaraz MD IM CT PROCEDURES Final R esult * POCT creatinine (09/28/2024 4:36 PM DRAPERY CUTTER MACHINE) Creatinine POC 1.2 0.8 - 1.3 mg/dL Blood 09/28/2024 4:36 PM DRAPERY CUTTER MACHINE 09/28/2024 4:36 PM DRAPERY CUTTER MACHINE Gregory Santiago MD LAB POCT ORDERABLES - DE VICE Final Result Performing Organization Address City/[facility] Co de Phone Number [facility] Department [place] [address] * eGFR (09/28/2024 4:16 PM DRAPERY CUTTER MACHINE) eGFR 81 >=60 mL/min/1. 73 m2 Comment: [...] last reviewed 2021. Blood 09/28/2024 4:16 PM DRAPERY CUTTER MACHINE 09/28/2024 4:38 PM DRAPERY CUTTER MACHINE Gregory Santiago MD LAB BLOOD ORDERABLES Fin al Result Performing Organization Address City/[facility]/ZIP Co de Phone Number [facility] Department [place] [address] * Differential, auto (09/28/2024 4:16 PM DRAPERY CUTTER MACHINE) Pathologist [facility] Neutrophil abs 5.7 1.5 - 6.5 K/cumm Imm gran abs 0.0 0.0 - 0.1 K/cumm [facility] Lymphocyte abs 2.1 0.8 - 3.3 K/cumm [facility] Monocyte abs 0.6 0.2 - 0.8 K/cumm [facility] Eosinophil abs 0.2 0.0 - 0.5 K/cumm [facility] Basophil abs 0.0 0.0 - 0.1 K/cumm [facility] Neutrophil pct 65.7 % [facility] Comment: Interpretive Data Percent cell count reference ranges are not reported, since discordance with absolute values may lead to misinterpretation of CBC data. Current Interpretive Data was last revised on 2017. Imm gran pct 0.2 % [facility] Comment: Interpretive Data Percent cell count reference ranges are not reported, since discordance with absolute values may lead to misinterpretation of CBC data. Current Interpretive Data was last revised on 2017. Lymphocyte pct 24.9 % [facility] Comment: Interpretive Data Percent cell count reference ranges are not reported, since discordance with absolute values may lead to misinterpretation of CBC data. Current Interpretive Data was last revised on 2017. Monocyte pct 7.0 % [facility] Comment: Interpretive Data Percent cell count reference ranges are not reported, since discordance with absolute values may lead to misinterpretation of CBC data. Current Interpretive Data was last revised on 2017. Eosinophil pct 1.9 % [facility] Comment: Interpretive Data Percent cell count reference ranges are not reported, since discordance with absolute values may lead to misinterpretation of CBC data. Current Interpretive Data was last revised on 2017. Basophil pct 0.3 % [facility] Comment: Interpretive Data Percent cell count reference ranges are not reported, since discordance with absolute values may lead to misinterpretation of CBC data. Current Interpretive Data was last revised on 2017. Blood 09/28/2024 4:16 PM DRAPERY CUTTER MACHINE 09/28/2024 4:38 PM DRAPERY CUTTER MACHINE us Gregory Santiago MD LAB BLOOD ORDERABLES Fin al Result [facility] Department [place] [address] * (ABNORMAL) CBC with auto differential (09/28/2024 4:16 PM DRAPERY CUTTER MACHINE) [facility] WBC 8.6 3.8 - 9.9 K/cumm Hgb 15.9 13.0 - 17.5 g/dL [facility] Hct 44.1 38.9 - 50.3 % [facility] Plt 206 150 - 400 K/cumm [facility] MPV 11.1 9.1 - 12.3 fL [facility] RBC 5.21 4.30 - 5.80 M/cumm [facility] MCV 84.6 81.3 - 96.4 fL [facility] MCH 30.5 27.1 - 33.3 pg [facility] MCHC 36.1(H) 32.3 - 35.7 g/dL [facility] RDW CV 13.0 11.1 - 14.9 % [facility] RDW SD 39.5 35.7 - 48.1 fL [facility] NRBC abs 0.00 0.00 - 0.01 K/cumm [facility] Blood (Blood, Venous) 09/28/2024 4:16 PM DRAPERY CUTTER MACHINE 09/28/2024 4:38 PM DRAPERY CUTTER MACHINE Gregory Santiago MD LAB BLOOD ORDERABLES Fin al Result Performing Organization Address City/[facility] Co de Phone Number [facility] Department [place] [address] * Lipase (09/28/2024 4:16 PM DRAPERY CUTTER MACHINE) [facility] Lipase 29 10 - 99 Units/L Blood (Blood, Venous) 09/28/2024 4:16 PM DRAPERY CUTTER MACHINE 09/28/2024 4:38 PM DRAPERY CUTTER MACHINE Gregory Santiago MD LAB BLOOD ORDERABLES Fin al Result Performing Organization Address [facility] Co de Phone Number [facility] Department [place] [address] * (ABNORMAL) Comprehensive metabolic panel (09/28/2024 4:16 PM DRAPERY CUTTER MACHINE) Sodium 140 135 - 145 mmol/L Potassium, pl 4.1 3.3 - 4.9 mmol/L [facility] Chloride 103 97 - 110 mmol/L [facility] CO2 27 22 - 32 mmol/L [facility] Anion gap 10 2 - 15 mmol/L [facility] BUN 17 6 - 25 mg/dL [facility] Creatinine 1.16 0.80 - 1.30 mg/dL [facility] Glucose 95 70 - 199 mg/dL [facility] Comment: Interpretive Data Fasting glucose >/= 126 [...] 2022. Calcium 9.5 8.5 - 10.3 mg/dL [facility] Bilirubin, total 1.1 0.1 - 1.2 mg/dL [facility] Protein, pl 7.4 6.5 - 8.5 g/dL [facility] Albumin 4.2 3.5 - 5.0 g/dL [facility] Alk phos 150(H) 40 - 130 Units/L [facility] ALT 104(H) 7 - 55 Units/L [facility] AST 56(H) 10 - 50 Units/L [facility] Blood 09/28/2024 4:16 PM DRAPERY CUTTER MACHINE 09/28/2024 4:38 PM DRAPERY CUTTER MACHINE us Gregory Santiago MD LAB BLOOD ORDERABLES Fin al Result [facility] Department [place] [address] from Last 3 Months Care Teams Roll Examiner Relationship Specialty Start Date End Date Marlen Mcmahon PA [address] [place] [address] PCP - General Physician Water Taxi Operator 09/28/24
--- OUTSIDE RECORDS SUMMARY | 2024-10-05 00:33 | XMS_ITS | Clinical Summary ---
Author Organization [facility] Address [address] [place] [address] Care Team Providers Care Road Cleaner Name Role Phone Unavailable Primary Care Provider Unavailabl e Source Comments [facility],non-owned Affiliates and Associated Physician Practices is amultiple site organization consisting of ambulatory clinics and hospital sitesin [place], [place], [place] and [place]. This disclosure is being madepursuant to the Care Everywhere program and may not contain all information available regarding this patient. Last updated 18.[facility] [employer] Social History Tobacco Use Types Packs/Day Years [...]
[2024-10-05 07:06] VITALS: BP 125/89; PULSE 102; RESP 16; TEMP 36.3; O2SAT 99; BMI 30.2
--- NOTE | 2024-10-05 07:17 | WPDANESEPPF ---
Anes - Initial Pre Proc Eval Procedure: Operation Date: 10/05/24 08:30 Proposed Procedures p Esophagogastroduodenoscopy & Colonoscopy - Raz Sharpe MD Date/Time: 10/05/24 07:17 Surgeon: Raz Sharpe MD Pre Op Diagnosis: GERD, LL quad pain Patient Data Age: 39 Gender: M Height: 1.68 m Weight: 85.1 kg Last Vital Signs Temp 36.3 C L 10/05/24 07:06 Pulse 102 H 10/05/24 07:06 Resp 16 10/05/24 07:06 BP 125/89 10/05/24 07:06 Pulse Ox 99 10/05/24 07:06 O2 Del Method Room Air 10/05/24 07:06 Allergies Allergy/AdvReac Type Severity Reaction Status Date / Time hydrocodone Allergy Unknown Jittery/ANXIOUS Verified 10/05/24 07:14 FEELING Home Medications ?Medication ?Instructions ?Recorded ?Confirmed ?Type losartan 25 mg tablet See Rx Instructions .Route 01/14/22 10/05/24 Rx .COMPLEX #90 tabs pseudoephedrine HCl 60 mg tablet 60 mg PO Q4-6H PRN nasal 11/16/23 10/03/24 Rx congestion #10 tabs gabapentin 300 mg capsule 300 mg PO BID #60 caps 12/21/23 10/03/24 Rx tizanidine 2 mg capsule 2 mg PO TID PRN muscle spasticity 02/11/24 10/03/24 Rx #60 caps cyclobenzaprine 10 mg tablet 10 mg PO TID PRN muscle spasm #20 08/29/24 10/03/24 Rx tabs hyoscyamine sulfate 0.125 mg 0.125 mg PO .every 6 hours PRN 09/28/24 10/03/24 Rx tablet (Levsin) abdominal pain #120 tabs omeprazole 40 mg capsule,delayed 40 mg PO DAILY 10/03/24 10/05/24 History release Patient hx anesthesia problems: none Family hx anesthesia problems: none Results Review: All pre-operative results and documents have been reviewed as part of the pre-operative evaluation. [facility] Past Medical History Medical History Cervical disc herniation Cervical myelopathy with cervical radiculopathy Left-sided headache Dyspepsia Colon cancer screening Hx of type A viral hepatitis Epigastric pain Elevated transaminase level HTN (hypertension) GERD (gastroesophageal reflux disease) Surgical History Surgical History Hx of vasectomy Hx of cholecystectomy Hx of appendectomy Family History Family History Father Hypertension Diabetes mellitus Mixed hyperlipidemia Mother Hypothyroidism Mixed hyperlipidemia Sibling No problems noted. Social History Social History Social History: Smoking status: Current every day smoker Tobacco type: cigars Second hand tobacco smoke exposure: Yes Additional smoking assessment comments: 2-3 a day, pt smokes cigars Alcohol intake: never Substance use: never Substance use type: does not use Do You Feel Safe in your Home?: Yes Lack of Transportation: No Lack of Food: Never True Current Housing: I Have Housing Concerned About Future Housing: No Difficulty Paying Gas/Electric Bills: No Difficulty Paying for Meds: No Currently Unemployed: No Education: High School Diploma/GED Difficulty w/ Childcare or Family Care: No Living arrangements: with family Additional living arrangements comments: Occupation/Education: occupation 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 Gender identity (if verbalized by the patient): Male Sexual Orientation (if Verbalized by the Patient): Straight or Heterosexual Spiritual care concerns: No Anes - Eval Final PreProcedure Day of Procedure 10/05/24 07:17 Patient weight: obese Heart: regular rate and rhythm Lungs: clear to auscultation Airway: Mallampati scale class II Neurological: alert and oriented Last oral intake: >/= 8 hours ASA classification: II Emergent: no Anesthetic plan: proceed Anesthesia type and monitoring: general GIVS and standard monitoring Results Review: All pre-operative results and documents have been reviewed as part of the pre-operative evaluation. Informed Consent: The patient's anesthetic plan and its attendant risks and benefits were discussed with the patient/family/POA. Questions were solicited and answers provided to the satisfaction of the patient/family/POA.
[2024-10-05] MEDS: LACTATED RINGERS 1,000 ML 150 ML IV CONT (07:23)
--- NOTE | 2024-10-05 08:15 | WPDHPUPDATE1 ---
History and Physical Update Update Date/Time: 10/05/24 08:15 History and Physical has been reviewed, including an updated exam of the patient. There are NO changes in the patient's condition. Risks, benefits, and alternatives have been discussed and questions answered. Patient agrees to proceed with procedure.
--- NOTE | 2024-10-05 08:29 | SUR.OPER ---
EGD: COLON: Start 827
[2024-10-05 08:39] VITALS: BP 103/67; PULSE 91; RESP 19; O2SAT 97
[2024-10-05 08:49] VITALS: BP 101/71; PULSE 85; RESP 22; O2SAT 97
[2024-10-05 08:59] VITALS: BP 96/70; PULSE 78; RESP 16; O2SAT 95
== END 2024-10-05 09:20 | disposition home or self-care (01) ==
PROVIDERS: PCP Physician Assistant; Referring Provider Internal Medicine Gastroenterology; Visit Provider Internal Medicine Gastroenterology
PROC: 0DJ08ZZ Inspection of Upper Intestinal Tract, Via Natural or Artificial Opening Endoscopic (ICD-10-PCS; CPT 45378; principal; 2024-10-05 08:30)
DX: K29.50 Unspecified chronic gastritis without bleeding (principal); R10.32 Left lower quadrant pain; K21.9 Gastro-esophageal reflux disease without esophagitis; K64.8 Other hemorrhoids; F17.290 Nicotine dependence, other tobacco product, uncomplicated; E66.9 Obesity, unspecified; Z68.30 Body mass index [BMI] 30.0-30.9, adult; K76.0 Fatty (change of) liver, not elsewhere classified
CPT/HCPCS: 45378; 43239; 88305; J2003; J2704; J7120

== ENCOUNTER 2024-11-22 08:17 | Outpatient (CLI) | payer BC, SELFPAY ==
--- NOTE | ~2024-11-22 | XR_ITS ---
EXAMINATION: XR small bowel follow through DATE: 11/22/2024 11:00 INDICATION: 3 months of abdominal pain TECHNIQUE: Race Starter radiograph(s) of the abdomen was/were obtained. Oral contrast was administered, and sequential radiographs of the abdomen were obtained until oral contrast was noted to be in the proxi mal colon. Spot fluoroscopic images of the small bowel were obtained. Fluoroscopy exposure time was 2 .1 minutes. A total of 3 fluoroscopic images and overhead radiographs were obtained. Total DAP was 22 3.929 Gycm^2 COMPARISON: None. FINDINGS: Race Starter image demonstrates normal bowel gas pattern with moderate amount predominately proximal colonic stool. Cholecystectomy clips in the right upper quadrant. Transit time to the proximal colon was oumar roximately 2 hours. There is normal caliber and mucosal fold pattern throughout the small bowel. Ter fernando ileum is normal. No tethering or abnormal mass effect observed upon the small bowel with real- time fluoroscopy. IMPRESSION: 1. Normal small bowel follow-through. Reviewed, dictated and finalized at location A.
--- OUTSIDE RECORDS SUMMARY | 2024-11-22 08:29 | XMS_ITS | Clinical Summary ---
Author Organization [facility] Care Team Providers Care Conference Planning Manager Name Role Phone Unavailable Primary Care [...]
--- OUTSIDE RECORDS SUMMARY | 2024-11-22 08:29 | XMS_ITS | Data Portability ---
Author Organization [facility] CASSIEFlorin [place] Aisha Address [address] [place] [address] Care Team Providers Care Insurance Agency Manager Name Role Phone WILLIAN DESIR Primary Care Provider Assessment Encounter Date Assessment Date Assessment LastModified by Organization Details LastModified Time 08/25/2024 08/25/2024 called patient 08/29/24 and states he had more pain and is in [facility] right now getting CT scan. Not available 08/29/2024 10:49:30 Plan of Treatment Reminders Order Date Submit Date Provider Last Modified By Organization Details Last Modified Time Details Appointments None recorded. Lab None recorded. Referral None recorded. Procedures None recorded. Surgeries None recorded. Imaging MRI, abdomen + pelvis, w/wo contrast [address] [facility] (Imaging), [address] [place] [address], [address], 13:55:25 Medication Orders nortriptyl ine 10 mg capsule 2024 025 [facility], [facility] [place], [address], 09:22:33 nortriptyl ine 10 mg capsule 2024 025 [facility], [facility] [place], [address], 12:47:17 naproxen 500 mg tablet 2023 024 [facility], [facility] [place], [address], 14:34:23 ondansetro n HCl 4 mg tablet [address] [facility], [address] [facility], [place], [address], 14:27:57 sumatripta n 50 mg tablet [address] [facility], [address] [place], [address], 14:27:05 Patient TargetsNo targets recorded. Patient Instructions Encounter Date Encounter Id Patient Instructions Last Modified By Organization Details Last Modified Time 11/16/2023 [id number] headache: care instructions [place] [id number] Not available 11/16/2023 14:36:27 aprenda sobre la presi n arterial homa - [learning about high blood pressure] [place] [id number] Not available 11/16/2023 14:34:00 08/25/2024 [id number] A healthy lifestyle: care instructions [place] [id number] Not available 08/29/2024 10:50:35 10/13/2024 [id number] A healthy lifestyle: care instructions [place] [id number] Not available 10/17/2024 15:13:04 Reason for Referral None Reported. Results Created Date Observation Date Name Description Value Unit Range Abnormal Flag Note LastModifiedBy Organization Detail LastModifiedTime 11/15/1911/15/2023 XR, chest , 2 view No observ ation record ed. [address], [place], [address], 11/16/2023 14:02:09 11/15/19 24 11/15/2023 CT, head + brain , w/o contr ast No observ ation record ed. [address], [place], [address], 11/16/2023 14:00:59 11/16/19 24 11/15/2023 CT, angio gram, head + neck, w/ contr ast No observ ation record ed. [address], [place], [address], 11/16/2023 14:01:44 Result Notes None recorded. Problems Name Problem SNOMED Code Status Onset Date Resolution Date Notes Provider Name and Address Organization Details Recorded Time Essential hypertensio n 54273599 Active 2022 DAMIEN HERNADEZ Attn: Accountnaun rios,[address] [facility], [place], [address], [place] [facility] 3 12:25:20 Overweight 319488433 Active 2022 DAMIEN HERNADEZ Attn: John rios,[address] [place], [address], [place] [facility] 3 12:25:21 Gastroesoph ageal reflux disease 254613329 Active 2022 DAMIEN HERNADEZ Attn: John g,[address] [place], [address], [place] [facility] 3 12:25:24 Low back pain 485662707 Active 2022 DAMIEN HERNADEZ Attn: John g,[address] [place], [address], [place] [facility] 3 12:25:25 Multiple joint pain 62728108 Active 2022 DAMIEN HERNADEZ Attn: John g,[address] [place], [address], [place] [facility] 3 12:25:28 Pain of bilateral knee regions 2273728155542 02 Active 2022 DAMIEN HERNADEZ Attn: John g,[address] [place], [address], [place] [facility] 3 12:25:29 Lesion of skin of right ear 9562317891334 9106 Active 2022 DAMIEN HERNADEZ Attn: Accountin g,[address] [place], [address], [place] [facility] 3 12:25:32 Insomnia 420690741 Active 2022 DAMIEN HERNADEZ Attn: John rios,[address], [place], [address], [place] [facility] 3 12:25:34 Headache 85862767 Active 2023 DAMIEN HERNADEZ Attn: John g,[address], [place], [address], [place] [facility] 4 14:34:02 Problem Notes None recorded. Procedures Surgical History None recorded. Imaging Results Imaging Date Name Status LastModified by Organiz ation Details LastModified Time 11/15/2023 XR, chest, 2 view completed [address], [address], 11/16/2023 14:02:09 11/15/2023 CT, head + brain, w/o contrast completed [address], [address], 11/16/2023 14:00:59 11/15/2023 CT, angiogram, head + neck, w/ contrast completed [address], [address], 11/16/2023 14:01:44 Procedure Notes None recorded. Medical Equipment None Reported. Allergies Allergen ID Allergen Name Allergen Category Reaction Reaction Severity Criticality Documentation Date Start Date Code Code System Note Provider Name and Address Organization Details Recorded Time 962192 amoxicill in medicatio n swelling Not available [...] THREE TIMES DAILY NEEDED FOR MUSCLE SPASM 10/13 completed Not Available Not Available Not Available naproxen 375 mg tablet TAKE 1 [...] mg tablet TAKE 1 TABLET BY MOUTH 4 TIMES DAILY NEEDED FOR ABDOMINAL PAIN 10/13 completed Not Available Not Available Not Available pantoprazol e 40 mg tablet,cedric yed release TAKE 1 TABLET BY MOUTH IN THE MORNING 11/15 completed Not Available Not Available Not Available hyoscyamine sulfate 0.125 mg tablet TAKE 1 TABLET BY MOUTH EVERY 6 HOURS NEEDED FOR ABDOMINAL PAIN active Not Available Not Available No t Available nortriptyli ne 10 mg capsule Take 1 capsule every day by oral route for 90 days. 2024 active Not Available Not Available Not Avai lable losartan 25 mg tablet Take 1 tablet by mouth once daily 2024 active Not Available Not Available Not Avai lable gabapentin 300 mg capsule TAKE 1 CAPSULE BY MOUTH ONCE DAILY AT BEDTIME MAY INCREASE TO 2 CAPSULES AT BEDTIME IF NEEDED AND MAY ADD 1 CAPSULE IN THE MORNING AND 2 AT BEDTIME IF PAIN PERSISTS MAX 3 CAPSULES PER DAY 10/17 completed Not Available Not Available Not Available omeprazole 20 mg capsule,del ayed release [...] TAKE 1 CAPSULE BY MOUTH ONCE DAILY 10/13 completed Not Available Not Available Not Available ondansetron 4 mg disintegrat ing tablet DISSOLVE 2 TABLETS IN MOUTH TWICE DAILY NEEDED FOR 5 DAYS active Not Available Not Available No t Available fluticasone propionate 50 mcg/actuati on nasal spray,suspe nsion [place] 1 spray every day by intranasa l route. 10/17 completed Not Available Not Available Not Available naproxen 500 mg tablet Take 1 tablet every 12 hours by oral route for 14 days. active Not Available Not Available No t Available tizanidine 2 mg capsule TAKE 1 CAPSULE BY MOUTH THREE TIMES DAILY NEEDED FOR MUSCLE SPASM. MAY TAKE 1 OR 2 CAPSULES AT BEDTIME ONLY AND INCREASE TO DAYTIME IF NECESSARY . SEDATION CAN OCCUR. 10/13 completed Not Available Not Available Not Available [employer] COVID-19 Ag Self Test kit [...] Updated DateTime 3 177.8 cm 27.3 kg/m2 28096.5 5 g 98 % 98 % 74 /min 118 mm[Hg] 72 mm[Hg] Tyra Ferrari [place] [facility] 12:41:32 Date Recorded Respiratory rate Systolic blood pressure Diastolic blood pressure Provider Name and Address Organization Details Last Updated DateTime 05/07/2023 18 /min 120 mm[Hg] 86 mm[Hg] DAMIEN SWANSON Attn: Accounting, [address] [place], [address], [place] [facility] [place] 05/08/2023 09:08:17 Date Recorded Body height Body mass index (BMI) Body weight Heart rate Oxygen saturation Oxygen saturation in Arterial blood by Pulse oximetry Systolic blood pressure Diastolic blood pressure Provider Name and Address Organization Details Last Updated DateTime 4 177.8 cm 29 kg/m2 08547.6 6 g 84 /min 97 % 97 % 153 mm[Hg] 76 mm[Hg] Tyra Ferrari MA [facility] 4 14:02:23 Date Recorded Body height Body mass index (BMI) Body weight Heart rate Oxygen saturation Oxygen saturation in Arterial blood by Pulse oximetry Provider Name and Address Organization Details Last Updated DateTime 5 177.8 cm 28.6 kg/m2 48541.8 8 g 90 /min 98 % 98 % Tyra Ferrari MA [facility] 5 17:13:55 Date Recorded Systolic blood pressure Diastolic blood pressure Provider Name and Address Organization Details Last Updated DateTime 08/25/2024 132 mm[Hg] 88 mm[Hg] DAMIEN HERNADEZ Attn: Accounting, [place], [address], [facility] 08/29/2024 10:50:32 Date Recorded Body height Body mass index (BMI) Body weight Heart rate Oxygen saturation Oxygen saturation in Arterial blood by Pulse oximetry Systolic blood pressure Diastolic blood pressure Provider Name and Address Organization Details Last Updated DateTime 5 177.8 cm 27.3 kg/m2 82502.5 5 g 96 /min 96 % 96 % 113 mm[Hg] 70 mm[Hg] Tyra Ferrari MA [facility] 5 12:28:27 Date Recorded Body height Body mass index (BMI) Body weight Heart rate Oxygen saturation Oxygen saturation in Arterial blood by Pulse oximetry Systolic blood pressure Diastolic blood pressure Provider Name and Address Organization Details Last Updated DateTime 5 177.8 cm 27 kg/m2 79241.3 7 g 86 /min 98 % 98 % 126 mm[Hg] 80 mm[Hg] Tyra Ferrari MA [facility] 5 09:06:21 Social History Question Answer Notes LastModified by Organizat ion Details LastModified Time Tobacco Smoking Status Smoker, Current Status Unknown cigars, doesn't inhale DAMIEN HERNADEZ Attn: Accounting,[address] [place], [address], [facility] 10/17/2024 15:13:21 What Is Your Level Of Alcohol Consumption? None Information not available 05/07/2023 In The 14 Days Before Symptom Onset, Have You Had Close Contact With A Laboratory-confir med COVID-19 While That Case Was Ill? No Information not available 12/17/2022 In The 14 Days Before [...] 12/17/2022 completed DAMIEN HERNADEZ Attn: Accounting,[address] [place], [address], [facility] 12/17/2022 13:55:17 Past Encounters Encounter ID Performer Location Encounter Start Date Encounter Closed Date Diagnosis/Indication Diagnosis SNOMED-CT Code Diagnosis ICD10 Code Diagnosis Note [id number] DAMIEN HERNADEZ [facility] [address] [place] [address] 12/17/2022 11:14:04 12/17/2022 11:41:40 Overweight 286922319 E66.3 Essential hypertension 76268808 I10 dx 3 years agocomplai nt on losartan 25 mgadvised no 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 education given about reflex reflux. Low back pain 981899380 M54.50 2 weeks of lower back pain with radiation to hips Multiple joint pain 3567 8005 M25.50 b/l knee , wrists felt 3-4 x per day. worse after lifting heavy things at work and weather changes. Pain of bi lateral knee regions 0514253586 71632 M25.561 b/l knee pain all over x years multiple days of the weeworse with weather changes or heavy liftinghas not had xray or done PT yet PEX: normal ROM, no swelling or bony abnormalit y. - PT Insomnia 880441691 G47.0 0 Discussed sleep hygiene - no [...] work Lesion of skin of right ear 7433463158 3260990 H93.8X1 papule with regular borders and one color on right ear scaphia present for 6 yearswould like removal of thisdermat ology Administra tion of diphtheria, pertussis, and tetanus vaccine 849563411 Z23 given today [id number] Shreya Ramirez MA [facility] [address] [place] [address] 12/19/2022 09:35:16 12/19/2022 09:57:55 [id number] DAMIEN SWANSON [facility] [address] [place] [address] 05/07/2023 12:09:03 05/07/2023 13:07:27 Nausea 954785931 R11.0 a/w headachesn o vomiting, diarrhea, constipati on, or abd paintrial zofran Migraine 64258578 G43.90 9 x5 daysthrobb ing around his entire heada/w nausea and dizzinessn o relief with OTC medsno concerning sxPEx- nl, CN II-XII intact, romberg negative, EOMI intact without dizzinessu nknown etiology, BP under control, glasses 1 yr old, adequate sleep, food, fluid intakecoul d be related to increase stress and anxiety with new jobtrial imitrex c7ersfl excedrin migraineRT W on 05/11/23, encouraged rest and increase fluid intakef/u in 1 wk if sx are not improved [id number] DAMIEN HERNADEZ [facility] [address] [place] [address] 11/16/2023 13:48:32 11/16/2023 14:37:47 Headache 10207199 R51.9 left sided headache resulting in ER visit. normal labs, CT head, CTA neck/head, cxr.has neurology f/y 12/09/23advi sed return to ER is worst headache of new neurologic al sx Essential hypertension 17895299 I10 elevated BP and increased weight from last visitadvis ed checking at home and f/u as he states he gets nervous coming heregood compliance on losartan 25 mgadvised no smoking cigarsDASH DIET Temporoman dibular joint disorder 84644638 M26.609 tender on palpationo ne episode of pain with chewing [id number] DAMIEN HERNADEZ [facility] [address] [place] [address] 08/25/2024 17:05:26 08/25/2024 17:35:16 Nausea and vomiting 97130823 R11.2 one episode today of epigastric pain and vomiting w/o any more nausea, diarrhea, constipati on. no sick contacts. no recent travel. On exam he is midlly diffusely tender on abdomen. skin is dry and warm without color changes. Patient advised to seek ER if pain worsens, cannot keep down fluids or has fever.annie ent agrees Overweight 768996131 E66 .3 [id number] DAMIEN HERNADEZ [facility] [address] [place] [address] 10/13/2024 12:21:20 10/13/2024 12:50:22 Abdominal pain 94985248 R10.9 severe episodes of abdominal pain lasting up to 45 minutes casing him to double over. He has had two CT scan and an EGD with GI. no test showing cause of pain.- nutcracker syndrome, nutcracker esophagus/ esophageal spasm, MSA, - next steps: swallow test, manometry? - continue following GI- trial nortriptyl ine- obtain MRI Spasm 79277686 R25.2 patient possibly having spasms in GI tractwill trial nortriptyl ine and obtain MRIhe is encouraged to f/u with GI Overweight 374220583 E66 .3 [id number] DAMIEN HERNADEZ [facility] [address] [place] [address] 11/08/2024 09:00:20 11/08/2024 09:24:03 Abdominal pain 50356457 R10.9 abdominal pain improved on TCA and would like to continue. He has had two CT scan and an EGD with GI. no test showing cause of pain. He has f/u with GI and scheduled for liver US and barium swallow.- nutcracker syndrome, nutcracker esophagus/ esophageal spasm, MSA, - next steps: swallow test, manometry? - continue following GI- trial nortriptyl ine- obtain MRI Spasm 86696206 R25.2 patient possibly having spasms in GI tractwill trial nortriptyl ine and obtain MRIhe is encouraged to f/u with GI Health Concerns Section Related Observation LastModified by Organization Detai ls LastModified Time None Recorded Concern Status LastModified by Organization Details LastModified Time None Recorded Advance Directives Directive None Recorded Payers Encounter Date Sequence Insurance Name Policy Number Policy Jimenez Covered Member ID Jimenez Member ID Guarantor Name 05/07/2023 1 [employer] [id number] Joseph Andrews-Ra judi [id number] Joseph Kimball 11/16/2023 1 [employer] [id number] Joseph Greene Juliana-Ra judi [id number] Joseph Kimball 08/25/2024 1 [employer]: [place] [id number] Joseph lau [id number] Joseph Kimball 10/13/2024 1 [employer]: [place] [id number] Joseph lau [id number] Joseph Kimball 11/08/2024 1 [employer]: [place] [id number] Joseph lau [id number] Joseph Kimball Notes Date Note Type Note Provider Name and Address Organization Details Recorded Time 05/07/2023 text/html Pt presents with headaches, dizziness, [...] home, 120s/80s. DAMIEN SWANSON Attn: Accounting,[address] [place], [address], [facility] 05/08/2023 09:12:17 11/16/2023 text/html pt went to [facility] and transferred by private vehicle to [place] [facility] for headache with tingling in face. CTA head neck normal, xray overall normal, covid/flu negative , CT head normal. Feels better today but stil has mild headache. had f/u with neurologist on December 08. needs refills on naproxen. denies cp, sob, worst headache, tingling/numbness, weakness DAMIEN HERNADEZ Attn: Accounting,[address] [facility], [place], [address], [place] [facility] 11/16/2023 14:36:39 08/25/2024 text/html one episode of vomiting today and nausea, no fever, chills, diarrhea. no sick contacts. Has eaten same foods as . Denies any alcohol use or new medications. DAMIEN HERNADEZ Attn: Accounting,[address] [facility], [place], [address], [place] [facility] 08/29/2024 10:50:45 10/13/2024 text/html Joseph is here to g/u on his continued abdominal pain Joseph has recurrent epsiodes of severe abdominal pain that cause him to double over. He has bee to ER 2x with CT scans obtained w and w/o contrast showing hepatic steatosis. He is UTD on colon screen and recently had overall normal EGD with his GI that was also negative for H pylori. Pain is causing him to miss work. GI started hyoscyamine and feels it helped when first starting but then episodes started again. most recent episode of lela was before this appointment. He has f/u with GI soon. today deniesand nausea, no fever, chills, diarrhea. no sick contacts. Has eaten same foods as . Denies any alcohol use or new medications. DAMIEN HERNADEZ Attn: Accounting,[address] [facility], [place], [address], [place] [facility] 10/17/2024 15:17:12 11/08/2024 text/html Joseph is here to f/u for medication for abdominal pain Joseph has recurrent episodes of severe abdominal pain that have improved drastically since starting amitriptyline. He has had 2-3 episodes rated at pain level 2/10. He has GI f/u and has US of liver and barium swallow scheduled. He is happy with progress and would like to continue medication. He denies s/e. today denies and nausea, no fever, chills, diarrhea. no sick contacts. Denies any alcohol use or new medications. DAMIEN HERNADEZ Attn: Accounting,[address] [facility], [place], [address], [place] [facility] 11/08/2024 09:23:45
--- OUTSIDE RECORDS SUMMARY | 2024-11-22 08:29 | XMS_ITS | Referral Summary ---
Author Organization [facility] Address [address] [place] [address] Care Team Providers Care Commercial Fisher Name Role Phone Marlen Mcmahon Primary Care Provider + Encounters Date Type Department Care Team Description 09/28/2024 4:00 PM TECHNOLOGY SUPPORT ANALYST - 09/28/2024 7:35 PM TECHNOLOGY SUPPORT ANALYST Emergency [facility] Emergency Department [address] [place] [address] Gregory Santiago MD Abdominal [...] on file Legal Sex Male 8:08 PM TECHNOLOGY SUPPORT ANALYST Gender Identity Not on file Sexual Orientation Not on file Last Filed Vital Signs Vital Sign Reading Time Taken Comments Blood Pressure 131/83 09/28/2024 7:30 PM TECHNOLOGY SUPPORT ANALYST Pulse 76 09/28/2024 7:30 PM TECHNOLOGY SUPPORT ANALYST Temperature 36.7 C (98 F) 09/28/2024 4:00 PM TECHNOLOGY SUPPORT ANALYST Respiratory Rate 16 09/28/2024 7:30 PM TECHNOLOGY SUPPORT ANALYST Oxygen Saturation 97% 09/28/2024 7:30 PM TECHNOLOGY SUPPORT ANALYST Inhaled Oxygen Concentration - - Weight 87.1 kg (192 lb) 09/28/2024 1:34 PM TECHNOLOGY SUPPORT ANALYST Height 167.6 cm (5' 6 ) 09/28/2024 1:34 PM TECHNOLOGY SUPPORT ANALYST Body Mass Index 30.99 09/28/2024 1:34 PM TECHNOLOGY SUPPORT ANALYST Plan of Treatment Not on file Procedures Procedure Name Priority Date/Time Associated Diagnosis Comments CT ABDOMEN PELVIS W CONTRAST ED 09/28/2024 6:00 PM TECHNOLOGY SUPPORT ANALYST POCT CREATININE - DEVICE Routine 09/28/2024 4:36 PM TECHNOLOGY SUPPORT ANALYST EGFR STAT 09/28/2024 4:16 PM TECHNOLOGY SUPPORT ANALYST DIFFERENTIAL AUTO STAT 09/28/2024 4:1 6 PM TECHNOLOGY SUPPORT ANALYST LIPASE STAT 09/28/2024 4:16 PM TECHNOLOGY SUPPORT ANALYST COMPREHENSIVE METABOLIC PANEL STAT 09/28/2024 4:16 PM TECHNOLOGY SUPPORT ANALYST CBC WITH AUTO DIFFERENTIAL STAT 09/28/2024 4:16 PM TECHNOLOGY SUPPORT ANALYST from Last 3 Months Results * CT Abdomen Pelvis W Contrast (09/28/2024 6:00 PM TECHNOLOGY SUPPORT ANALYST) Anatomical Region Laterality Modality Body N/A Computed Tomogra phy 09/28/2024 6:16 PM TECHNOLOGY SUPPORT ANALYST Impressions 09/28/2024 8:38 PM TECHNOLOGY SUPPORT ANALYST 1. No acute abnormality within the abdomen or pelvis. 2. Hepatic steatosis. Dictated by: Myles Lyn MD The radiology attending physician has personally reviewed this study, and had reviewed and/or edited this written report and agrees with it. Electronically signed by: Hardeep Albert M.D. Narrative 09/28/2024 8:38 PM TECHNOLOGY SUPPORT ANALYST EXAMINATION: Computed tomography of the abdomen and [...] esult * POCT creatinine (09/28/2024 4:36 PM TECHNOLOGY SUPPORT ANALYST) Creatinine POC 1.2 0.8 - 1.3 mg/dL Blood 09/28/2024 4:36 PM TECHNOLOGY SUPPORT ANALYST 09/28/2024 4:36 PM TECHNOLOGY SUPPORT ANALYST Gregory Santiago MD LAB POCT ORDERABLES - DE VICE Final Result Performing Organization Address City/[facility] Co de Phone Number [facility] [place] [address] * eGFR (09/28/2024 4:16 PM TECHNOLOGY SUPPORT ANALYST) eGFR 81 >=60 mL/min/1. 73 m2 Comment: [...] last reviewed 2021. Blood 09/28/2024 4:16 PM TECHNOLOGY SUPPORT ANALYST 09/28/2024 4:38 PM TECHNOLOGY SUPPORT ANALYST Gregory Santiago MD LAB BLOOD ORDERABLES Fin al Result Performing Organization Address City/[facility]/ZIP Co de Phone Number [facility] [place] [address] * Differential, auto (09/28/2024 4:16 PM TECHNOLOGY SUPPORT ANALYST) Pathologist [facility] Neutrophil abs 5.7 1.5 - 6.5 K/cumm Imm gran abs 0.0 0.0 - 0.1 K/cumm [facility] Lymphocyte abs 2.1 0.8 - 3.3 K/cumm [facility] Monocyte abs 0.6 0.2 - 0.8 K/cumm [facility] Eosinophil abs 0.2 0.0 - 0.5 K/cumm [facility] Basophil abs 0.0 0.0 - 0.1 K/cumm [facility] Neutrophil pct 65.7 % [facility] Comment: Interpretive Data Percent cell count reference ranges are not reported, since discordance with absolute values may lead to misinterpretation of CBC data. Current Interpretive Data was last revised on 2017. Imm gran pct 0.2 % [facility] Comment: Interpretive Data Percent cell count reference ranges are not reported, since discordance with absolute values may lead to misinterpretation of CBC data. Current Interpretive Data was last revised on 2017. Lymphocyte pct 24.9 % [facility] Comment: Interpretive Data Percent cell count reference ranges are not reported, since discordance with absolute values may lead to misinterpretation of CBC data. Current Interpretive Data was last revised on 2017. Monocyte pct 7.0 % [facility] Comment: Interpretive Data Percent cell count reference ranges are not reported, since discordance with absolute values may lead to misinterpretation of CBC data. Current Interpretive Data was last revised on 2017. Eosinophil pct 1.9 % [facility] Comment: Interpretive Data Percent cell count reference ranges are not reported, since discordance with absolute values may lead to misinterpretation of CBC data. Current Interpretive Data was last revised on 2017. Basophil pct 0.3 % [facility] Comment: Interpretive Data Percent cell count reference ranges are not reported, since discordance with absolute values may lead to misinterpretation of CBC data. Current Interpretive Data was last revised on 2017. Blood 09/28/2024 4:16 PM TECHNOLOGY SUPPORT ANALYST 09/28/2024 4:38 PM TECHNOLOGY SUPPORT ANALYST us Gregory Santiago MD LAB BLOOD ORDERABLES Fin al Result [facility] Department [place] [address] * (ABNORMAL) CBC with auto differential (09/28/2024 4:16 PM TECHNOLOGY SUPPORT ANALYST) [facility] WBC 8.6 3.8 - 9.9 K/cumm Hgb 15.9 13.0 - 17.5 g/dL [facility] Hct 44.1 38.9 - 50.3 % [facility] Plt 206 150 - 400 K/cumm [facility] MPV 11.1 9.1 - 12.3 fL [facility] RBC 5.21 4.30 - 5.80 M/cumm [facility] MCV 84.6 81.3 - 96.4 fL [facility] MCH 30.5 27.1 - 33.3 pg [facility] MCHC 36.1(H) 32.3 - 35.7 g/dL [facility] RDW CV 13.0 11.1 - 14.9 % [facility] RDW SD 39.5 35.7 - 48.1 fL [facility] NRBC abs 0.00 0.00 - 0.01 K/cumm [facility] Blood Venous blood specimen / Unknown 09/28/2024 4:16 PM TECHNOLOGY SUPPORT ANALYST 09/28/2024 4:38 PM TECHNOLOGY SUPPORT ANALYST Gregory Santiago MD LAB BLOOD ORDERABLES Fin al Result Performing Organization Address City/[facility]/ZIP Co de Phone Number [facility] Department [place] [address] * Lipase (09/28/2024 4:16 PM TECHNOLOGY SUPPORT ANALYST) [facility] Lipase 29 10 - 99 Units/L Blood Venous blood specimen / Unknown 09/28/2024 4:16 PM TECHNOLOGY SUPPORT ANALYST 09/28/2024 4:38 PM TECHNOLOGY SUPPORT ANALYST Gregory Santiago MD LAB BLOOD ORDERABLES Fin al Result Performing Organization Address City/[facility] Co de Phone Number [facility] Department [place] [address] * (ABNORMAL) Comprehensive metabolic panel (09/28/2024 4:16 PM TECHNOLOGY SUPPORT ANALYST) Sodium 140 135 - 145 mmol/L Potassium, pl 4.1 3.3 - 4.9 mmol/L [facility] Chloride 103 97 - 110 mmol/L [facility] CO2 27 22 - 32 mmol/L [facility] Anion gap 10 2 - 15 mmol/L [facility] BUN 17 6 - 25 mg/dL [facility] Creatinine 1.16 0.80 - 1.30 mg/dL [facility] Glucose 95 70 - 199 mg/dL [facility] Comment: Interpretive Data Fasting glucose [...] 2022. Calcium 9.5 8.5 - 10.3 mg/dL [facility] Bilirubin, total 1.1 0.1 - 1.2 mg/dL [facility] Protein, pl 7.4 6.5 - 8.5 g/dL [facility] Albumin 4.2 3.5 - 5.0 g/dL [facility] Alk phos 150(H) 40 - 130 Units/L [facility] ALT 104(H) 7 - 55 Units/L [facility] AST 56(H) 10 - 50 Units/L [facility] Blood 09/28/2024 4:16 PM TECHNOLOGY SUPPORT ANALYST 09/28/2024 4:38 PM TECHNOLOGY SUPPORT ANALYST Gregory Santiago MD LAB BLOOD ORDERABLES Fin al Result [facility] [place] [address] from Last 3 Months Insurance [facility] Care Teams Commercial Fisher Relationship Specialty Start Date End Date Marlen Mcmahon PA PCP - General Physician Corn Cutter 09/28/24
--- OUTSIDE RECORDS SUMMARY | 2024-11-22 08:29 | XMS_ITS | Clinical Summary ---
Author Organization [facility] Address [address] [place] [address] Care Team Providers Care Cigar Patcher Name Role Phone Unavailable Primary Care Provider Unavailabl e Source Comments [facility],non-owned Affiliates and Associated Physician Practices is amultiple site organization consisting of ambulatory clinics and hospital sitesin [place], [place], [place] and [place]. This disclosure is being madepursuant to the Care Everywhere program and may not contain all information available regarding this patient. 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 SPRAY MIXER Gender Identity Not on file Sexual Orientation Not on file Plan of Treatment Health Maintenance Due Date Last Done Comments LIPID TESTING 1983 HIV SCREENING 1998 HEPATITIS C SCREENING 03/22/2001 DTAP/TDAP/TD VACCINES (1 - Tdap) 2002 HEPATITIS B VACCINE (1 of 3 - 19+ 3-dose series) 2002 COVID-19 VACCINE ( - 2023-2 5 season) 2024 DEPRESSION SCREENING 08/03/2024 INFLUENZA VACCINE (Season Ended) 2025 ZOSTER VACCINE (1 of 2) 2033 HIB VACCINE Aged Out No longer eligi ble based on patient's age to complete this topic HPV VACCINE Aged Out No longer eligi ble based on patient's age to complete this topic MENINGOCOCCAL (Group B) VACC INE SHARED DECISION-MAKING Aged Out No longer eligibl e based on patient's age to complete this topic MENINGOCOCCAL GROUPS A/C/Y/W VACCINE Aged Out No longer eligible b ased on patient's age to complete this topic PNEUMOCOCCAL VACCINE Aged Out No long er eligible based on patient's age to complete this topic Insurance [facility] SELF PAY NO INSURANCE Member Subscriber Plan / Payer (Ef fective for All Dates) Name:Meenakshi Jigar Joseph Greene Member ID:Not on file Relation to Subscriber:Not on file Name:MEENAKSHI GUERREROIREZJOSEPH Subscriber ID:Not on file (Home) Address: [address], [place] [address] Payer ID:Not on file Group ID:Not on file Type:Self Pay Address: [place], [place] [facility] * Guarantor: JOSEPH CASTREJON Account Type Relation to Patient Date of Phone Billing Address Personal/Family Spouse
--- OUTSIDE RECORDS SUMMARY | 2024-11-22 08:29 | XMS_ITS | Clinical Summary ---
Author Organization [facility] Address [address] [place] [address] Care Team Providers Care Photographer Scientific Name Role Phone Marlen Mcmahon Primary Care Provider + Allergies Active Allergy Reactions Criticality Noted Date Comments Hydrocodone Anxiety,Palpitations High 09/28/2024 Medications aluminum-magnes ium hydroxide-simet hicone (MAALOX) suspension 200-200-20 mg/5 mL Take 20 mL by mouth 3 (three) times a day as needed for heartburn or cramping 354 mL Active Encounters Date Type Department Care Team Description 09/28/2024 4:00 PM PRODUCTION GENERALIST - 09/28/2024 7:35 PM PRODUCTION GENERALIST Emergency [facility] Emergency Department [address] [place] [address] Gregory Santiago MD Abdominal pain [...] on file Legal Sex Male 8:08 PM PRODUCTION GENERALIST Gender Identity Not on file Sexual Orientation Not on file Last Filed Vital Signs Vital Sign Reading Time Taken Comments Blood Pressure 131/83 09/28/2024 7:30 PM PRODUCTION GENERALIST Pulse 76 09/28/2024 7:30 PM PRODUCTION GENERALIST Temperature 36.7 C (98 F) 09/28/2024 4:00 PM PRODUCTION GENERALIST Respiratory Rate 16 09/28/2024 7:30 PM PRODUCTION GENERALIST Oxygen Saturation 97% 09/28/2024 7:30 PM PRODUCTION GENERALIST Inhaled Oxygen Concentration - - Weight 87.1 kg (192 lb) 09/28/2024 1:34 PM PRODUCTION GENERALIST Height 167.6 cm (5' 6 ) 09/28/2024 1:34 PM PRODUCTION GENERALIST Body Mass Index 30.99 09/28/2024 1:34 PM PRODUCTION GENERALIST Plan of Treatment Health Maintenance Due Date [...] PELVIS W CONTRAST ED 09/28/2024 6:00 PM PRODUCTION GENERALIST POCT CREATININE - DEVICE Routine 09/28/2024 4:36 PM PRODUCTION GENERALIST EGFR STAT 09/28/2024 4:16 PM PRODUCTION GENERALIST DIFFERENTIAL AUTO STAT 09/28/2024 4:1 6 PM PRODUCTION GENERALIST LIPASE STAT 09/28/2024 4:16 PM PRODUCTION GENERALIST COMPREHENSIVE METABOLIC PANEL STAT 09/28/2024 4:16 PM PRODUCTION GENERALIST CBC WITH AUTO DIFFERENTIAL STAT 09/28/2024 4:16 PM PRODUCTION GENERALIST from Last 3 Months Results * CT Abdomen Pelvis W Contrast (09/28/2024 6:00 PM PRODUCTION GENERALIST) Anatomical Region Laterality Modality Body N/A Computed Tomogra phy 09/28/2024 6:16 PM PRODUCTION GENERALIST Impressions 09/28/2024 8:38 PM PRODUCTION GENERALIST 1. No acute abnormality within the abdomen or pelvis. 2. Hepatic steatosis. Dictated by: Myles Lyn MD The radiology attending physician has personally reviewed this study, and had reviewed and/or edited this written report and agrees with it. Electronically signed by: Hardeep Albert M.D. Narrative 09/28/2024 8:38 PM PRODUCTION GENERALIST EXAMINATION: Computed tomography of the abdomen and [...] esult * POCT creatinine (09/28/2024 4:36 PM PRODUCTION GENERALIST) Creatinine POC 1.2 0.8 - 1.3 mg/dL Blood 09/28/2024 4:36 PM PRODUCTION GENERALIST 09/28/2024 4:36 PM PRODUCTION GENERALIST us Gregory Santiago MD LAB POCT ORDERABLES - DE VICE Final Result [facility] [place] [address] * eGFR (09/28/2024 4:16 PM PRODUCTION GENERALIST) eGFR 81 >=60 mL/min/1. 73 m2 Comment: [...] last reviewed 2021. Blood 09/28/2024 4:16 PM PRODUCTION GENERALIST 09/28/2024 4:38 PM PRODUCTION GENERALIST us Gregory Santiago MD LAB BLOOD ORDERABLES Fin al Result [facility] [place] [address] * Differential, auto (09/28/2024 4:16 PM PRODUCTION GENERALIST) Neutrophil abs 5.7 1.5 - 6.5 K/cumm Imm gran abs 0.0 0.0 - 0.1 K/cumm [facility] Lymphocyte abs 2.1 0.8 - 3.3 K/cumm [facility] Monocyte abs 0.6 0.2 - 0.8 K/cumm [facility] Eosinophil abs 0.2 0.0 - 0.5 K/cumm [facility] Basophil abs 0.0 0.0 - 0.1 K/cumm [facility] Neutrophil pct 65.7 % [facility] Comment: Interpretive Data Percent cell count reference ranges are not reported, since discordance with absolute values may lead to misinterpretation of CBC data. Current Interpretive Data was last revised on 2017. Imm gran pct 0.2 % [facility] Comment: Interpretive Data Percent cell count reference ranges are not reported, since discordance with absolute values may lead to misinterpretation of CBC data. Current Interpretive Data was last revised on 2017. Lymphocyte pct 24.9 % [facility] Comment: Interpretive Data Percent cell count reference ranges are not reported, since discordance with absolute values may lead to misinterpretation of CBC data. Current Interpretive Data was last revised on 2017. Monocyte pct 7.0 % [facility] Comment: Interpretive Data Percent cell count reference ranges are not reported, since discordance with absolute values may lead to misinterpretation of CBC data. Current Interpretive Data was last revised on 2017. Eosinophil pct 1.9 % [facility] Comment: Interpretive Data Percent cell count reference ranges are not reported, since discordance with absolute values may lead to misinterpretation of CBC data. Current Interpretive Data was last revised on 2017. Basophil pct 0.3 % [facility] Comment: Interpretive Data Percent cell count reference ranges are not reported, since discordance with absolute values may lead to misinterpretation of CBC data. Current Interpretive Data was last revised on 2017. Blood 09/28/2024 4:16 PM PRODUCTION GENERALIST 09/28/2024 4:38 PM PRODUCTION GENERALIST Gregory Santiago MD LAB BLOOD ORDERABLES Fin al Result Performing Organization Address City/[facility]/ZIP Co de Phone Number [facility] [place] [address] * (ABNORMAL) CBC with auto differential (09/28/2024 4:16 PM PRODUCTION GENERALIST) Pathologist [facility] WBC 8.6 3.8 - 9.9 K/cumm Hgb 15.9 13.0 - 17.5 g/dL [facility] Hct 44.1 38.9 - 50.3 % [facility] Plt 206 150 - 400 K/cumm [facility] MPV 11.1 9.1 - 12.3 fL [facility] RBC 5.21 4.30 - 5.80 M/cumm [facility] MCV 84.6 81.3 - 96.4 fL [facility] MCH 30.5 27.1 - 33.3 pg [facility] MCHC 36.1(H) 32.3 - 35.7 g/dL [facility] RDW CV 13.0 11.1 - 14.9 % [facility] RDW SD 39.5 35.7 - 48.1 fL [facility] NRBC abs 0.00 0.00 - 0.01 K/cumm [facility] Blood Venous blood specimen / Unknown 09/28/2024 4:16 PM PRODUCTION GENERALIST 09/28/2024 4:38 PM PRODUCTION GENERALIST Gregory Santiago MD LAB BLOOD ORDERABLES Fin al Result [facility] [place] [address] * Lipase (09/28/2024 4:16 PM PRODUCTION GENERALIST) Pathologist [facility] Lipase 29 10 - 99 Units/L Blood Venous blood specimen / Unknown 09/28/2024 4:16 PM PRODUCTION GENERALIST 09/28/2024 4:38 PM PRODUCTION GENERALIST Gregory Santiago MD LAB BLOOD ORDERABLES Fin al Result [facility] [place] [address] * (ABNORMAL) Comprehensive metabolic panel (09/28/2024 4:16 PM PRODUCTION GENERALIST) Sodium 140 135 - 145 mmol/L Potassium, pl 4.1 3.3 - 4.9 mmol/L [facility] Chloride 103 97 - 110 mmol/L [facility] CO2 27 22 - 32 mmol/L [facility] Anion gap 10 2 - 15 mmol/L [facility] BUN 17 6 - 25 mg/dL [facility] Creatinine 1.16 0.80 - 1.30 mg/dL [facility] Glucose 95 70 - 199 mg/dL [facility] Comment: Interpretive Data Fasting glucose >/= 126 [...] Calcium 9.5 8.5 - 10.3 mg/dL [facility] Bilirubin, total 1.1 0.1 - 1.2 mg/dL [facility] Protein, pl 7.4 6.5 - 8.5 g/dL [facility] Albumin 4.2 3.5 - 5.0 g/dL [facility] Alk phos 150(H) 40 - 130 Units/L [facility] ALT 104(H) 7 - 55 Units/L [facility] AST 56(H) 10 - 50 Units/L [facility] Blood 09/28/2024 4:16 PM PRODUCTION GENERALIST 09/28/2024 4:38 PM PRODUCTION GENERALIST us Gregory Santiago MD LAB BLOOD ORDERABLES Fin al Result [facility] [place] [address] from Last 3 Months Insurance [facility] Care Teams Photographer Scientific Relationship Specialty Start Date End Date Marlen Mcmahon PA PCP - General Physician First Calender Worker 09/28/24
== END 2024-11-22 08:18 | disposition home or self-care (01) ==
PROVIDERS: PCP Physician Assistant; Visit Provider Internal Medicine Gastroenterology
DX: R10.9 Unspecified abdominal pain (principal); R10.32 Left lower quadrant pain; R14.2 Eructation
CPT/HCPCS: 74250

== ENCOUNTER 2025-02-28 14:53 | Outpatient (CLI) | payer BC, SELFPAY ==
--- NOTE | ~2025-02-28 | MR_ITS ---
MRI of the lumbar spine Clinical History: Back pain Technique: Axial T2-weighted images, and sagittal T1-weighted, T2-weighted, and T2 fat-sat images wer e acquired. Following intravenous administration of 18 cc MultiHance gadolinium, T1-weighted fat-sat imaging was performed in the axial and sagittal planes. Findings: There is no fracture or subluxation of the lumbar spine. Vertebral bodies maintain normal h eight and alignment. No significant bone marrow signal abnormality seen. At L1-L2, there is no disc bulge or herniation. There is moderate facet arthropathy. No central canal stenosis or neural foraminal narrowing. At L2-L3, there is disc desiccation without disc bulge or herniation. There is mild facet hypertrophy . No spinal canal stenosis or neural foraminal narrowing. At L3-L4, there is minimal disc bulge with mild facet hypertrophy. No spinal canal stenosis. There is mild bilateral neural foraminal narrowing. At L4-L5, there is minimal disc bulge with mild to moderate facet arthropathy. No central canal steno sis. There is minimal bilateral neural foraminal narrowing. At L5-S1, there is minimal disc bulge with moderate facet arthropathy. No central canal stenosis or n eural foraminal narrowing. Paravertebral soft tissues are unremarkable. No abnormal postcontrast enhancement identified. Impression: Mild degenerative spondylosis, as above. Reviewed, dictated and finalized at [facility]. Impression: Mild degenerative spondylosis, as above.
--- NOTE | ~2025-02-28 | MR_ITS ---
MRI of the abdomen: Clinical indication: Abdominal pain. Technique: Coronal SSFSE ARC, WATER:coronal LAVA-FLEX, Coronal 2D FIESTA FatSat, Axial SSFSE BH ARC, Axial 3D DualEcho BH, Axial SSFSE-IR, Axial DWI b=500, Axial 2D FIESTA FatSat, pre and dynamic postco ntrast Axial LAVA ARC, postcontrast Coronal In and Opposed phase LAVA FLEX. Following intravenous adm inistration of 18 cc MultiHance gadolinium, T1-weighted fat-sat imaging was performed in the axial an d coronal planes. Findings: Gallbladder absent. There are probably 2 small filling defects of the distal common bile du ct, suspicious for small stones (series 18 images 29, 30). Common bile duct measures 10 mm in diamete r. No evidence of intrahepatic biliary ductal dilatation. The pancreatic duct is normal in size. Diffuse signals in the liver on out of phase images relative to in phase images is compatible diffuse fatty infiltration. No focal hepatic lesion seen. Spleen, pancreas, adrenals, kidneys appear normal. The aorta and the paraaortic regions appear normal. Impression: Choledocholithiasis, as detailed above. Diffuse fatty infiltration of liver. Status post cholecystectomy. Reviewed, dictated and finalized at location . Impression: Choledocholithiasis, as detailed above. Diffuse fatty infiltration of liver. Status post cholecystectomy.
--- OUTSIDE RECORDS SUMMARY | 2025-02-28 15:03 | XMS_ITS | Clinical Summary ---
Author Organization [facility] Care Team Providers Care Baggage Agent Name Role Phone Unavailable Primary Care Provider [...] Virus (HCV) Screening 1983 TdaP Immunization 1983 Human Papillomavirus (HPV) Immunization (1 - Male 3-dose series) 1998 Hepatitis B Immunization (1 of 3 - 19+ 3-dose series) 2002 SARS-COV-2 Immunization ( - season) 2024 Influenza Immunization (#1) 2025 Respiratory Syncytial Virus (RSV) Immunization (Adult) (1 [...]
--- OUTSIDE RECORDS SUMMARY | 2025-02-28 15:03 | XMS_ITS | Referral Summary ---
Author Organization [facility] Address [address] [place] [address] Care Team Providers Care Tube Drawing Supervisor Name Role Phone Marlen Mcmahon Primary Care [...] on file Legal Sex Male 8:08 PM PRIVATE EQUITY ANALYST Gender Identity Not on file Sexual Orientation Not on file Last Filed Vital Signs Vital Sign Reading Time Taken Comments Blood Pressure 131/83 09/28/2024 7:30 PM PRIVATE EQUITY ANALYST Pulse 76 09/28/2024 7:30 PM PRIVATE EQUITY ANALYST Temperature 36.7 C (98 F) 09/28/2024 4:00 PM PRIVATE EQUITY ANALYST Respiratory Rate 16 09/28/2024 7:30 PM PRIVATE EQUITY ANALYST Oxygen Saturation 97% 09/28/2024 7:30 PM PRIVATE EQUITY ANALYST Inhaled Oxygen Concentration - - Weight 87.1 kg (192 lb) 09/28/2024 1:34 PM PRIVATE EQUITY ANALYST Height 167.6 cm (5' 6) 09/28/2024 1:34 PM PRIVATE EQUITY ANALYST Body Mass Index 30.99 09/28/2024 1:34 PM PRIVATE EQUITY ANALYST Plan of Treatment Not on file Insurance [place] Care Teams Tube Drawing Supervisor Relationship Specialty Start Date End Date Marlen Mcmahon PA PCP - General Physician Snow Technician 09/28/24
--- OUTSIDE RECORDS SUMMARY | 2025-02-28 15:03 | XMS_ITS | Clinical Summary ---
Author Organization 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 Gender Identity Not on file Sexual Orientation Not on file Last Filed Vital Signs Vital Sign Reading Time Taken Comments Blood Pressure 131/83 09/28/2024 7:30 PM SEWER INSPECTOR Pulse 76 09/28/2024 7:30 PM SEWER INSPECTOR Temperature 36.7 C (98 F) 09/28/2024 4:00 PM SEWER INSPECTOR Respiratory Rate 16 09/28/2024 7:30 PM SEWER INSPECTOR Oxygen Saturation 97% 09/28/2024 7:30 PM SEWER INSPECTOR Inhaled Oxygen Concentration - - Weight 87.1 kg (192 lb) 09/28/2024 1:34 PM SEWER INSPECTOR Height 167.6 cm (5' 6) 09/28/2024 1:34 PM SEWER INSPECTOR Body Mass Index 30.99 09/28/2024 1:34 PM SEWER INSPECTOR Plan of Treatment Health Maintenance Due Date Last Done Comments Depression Screening 1983 DTaP/Tdap/Td Vaccine (1 - Tdap) 1994 Varicella Vaccines (1 of 2 - 13+ 2-dose series) 1996 Hepatitis B Screening 2001 Regular Well Visit/Exam 18-64 2001 HPV Vaccines (1 - 3-dose SCD M series) 2010 Influenza Vaccine (#1) 2025 Hepatitis C Screening Completed 09/28/2024 Pneumococcal vaccine <65 Aged Out No longer eligible based on patient's age to complete this topic Insurance Baby Blend[place] Baby Bl[place] Care Teams Private Mortgage Banker Safe Relationship Specialty Start Date End Date Marlen Mcmahon PA PCP - General Physician Blower And Compressor Assembler 09/28/24
--- OUTSIDE RECORDS SUMMARY | 2025-02-28 15:03 | XMS_ITS | Data Portability ---
Author Organization [facility] [place] Address [address] [facility] [address] Care Team Providers Care Receptionist Telephone Operator Name Role Phone WILLIAN DESIR Primary Care Provider Assessment Encounter Date Assessment Date Assessment LastModified by Organization Details LastModified Time 08/25/2024 08/25/2024 called patient 08/29/24 and states he had more pain and is in [facility] right now getting CT scan. Not available 08/29/2024 10:49:30 Plan of Treatment Reminders Order Date Submit Date Provider Last Modified By Organization Details Last Modified Time Details Appointments None recorded. Lab None recorded. Referral None recorded. Procedures None recorded. Surgeries None recorded. Imaging MRI, abdomen + pelvis, w/wo contrast [address] (Imaging), [address] [place] [address], [id number], 08:17:14 Medication Orders nortriptyli ne 10 mg capsule 2024 025 [facility], [address] [place], [address], 5 09:22:33 nortriptyli ne 10 mg capsule 2024 025 [facility], [address] [place], [address], 5 12:47:17 naproxen 500 mg tablet 2023 024 [facility], [facility] [place] [facility] [place], [address], 14:34:23 ondansetron HCl 4 mg tablet [address] [facility] [place], [address], 4 14:27:57 sumatriptan 50 mg tablet [address] [facility], [address] [place], [address], 14:27:05 Patient TargetsNo targets recorded. Patient Instructions Encounter Date Encounter Id Patient Instructions Last Modified By Organization Details Last Modified Time 11/16/2023 [id number] headache: care instructions [place] [id number] Not available 11/16/2023 14:36:27 aprenda sobre la presi n arterial homa - [learning about high blood pressure] [place] [id number] Not available 11/16/2023 14:34:00 08/25/2024 [id number] A healthy lifestyle: care instructions [place] [id number] Not available 08/29/2024 10:50:35 10/13/2024 [id number] A healthy lifestyle: care instructions [place] [id number] Not available 10/17/2024 15:13:04 Reason for Referral None Reported. Results Created Date Observation Date Name Description Value Unit Range Abnormal Flag Note LastModifiedBy Organization Detail LastModifiedTime 11/15/1911/15/2023 XR, chest , 2 view No observ ation record ed. [address], [place], [address], 11/16/2023 14:02:09 11/15/19 24 11/15/2023 CT, head + brain , w/o contr ast No observ ation record ed. [address], [place], [address], 11/16/2023 14:00:59 11/16/19 24 11/15/2023 CT, angio gram, head + neck, w/ contr ast No observ ation record ed. [address], [place], [address], 11/16/2023 14:01:44 11/23/19 25 11/22/2024 XR, abdom en + RF, small bowel , w/ contr ast PO No observ ation record ed. [address], [place], [address], 11/22/2024 15:03:26 Result Notes None recorded. Problems Name Problem SNOMED Code Status Onset Date Resolution Date Notes Provider Name and Address Organization Details Recorded Time Essential hypertensio n 41061248 Active 2022 DAMIEN HERNADEZ Attn: John rios,[address] [place], [address], [place] [facility] 3 12:25:20 Overweight 396381936 Active 2022 DAMIEN HERNADEZ Attn: John rios,[address] [place], [address], [place] [facility] 3 12:25:21 Gastroesoph ageal reflux disease 747359111 Active 2022 DAMIEN HERNADEZ Attn: John rios,[address] [place], [address], [place] [facility] 3 12:25:24 Low back pain 999204073 Active 2022 DAMIEN HERNADEZ Attn: John rios,[address] [place], [address], [place] [facility] 3 12:25:25 Pain of multiple joints 86255081 Active 2022 DAMIEN HERNADEZ Attn: John rios,[address] [place], [address], [place] [facility] 3 12:25:28 Pain of bilateral knee regions 0641527217678 02 Active 2022 DAMIEN HERNADEZ Attn: John rios,[address] [facility], [place], [address], [place] [facility] 3 12:25:29 Lesion of skin of right ear 4704277611307 9106 Active 2022 DAMIEN HERNADEZ Attn: John rios,[address] [facility], [place], [address], [place] - [facility] 3 12:25:32 Insomnia 537446721 Active 2022 DAMIEN HERNADEZ Attn: John rios,[address] [facility], [place], [address], [place] - [facility] 3 12:25:34 Headache 53084852 Active 2023 DAMIEN HERNADEZ Attn: John rios,[address] [facility], [place], [address], [place] - [facility] 4 14:34:02 Problem Notes None recorded. Medical Equipment None Reported. Allergies Allergen ID Allergen Name Allergen Category Reaction Reaction Severity Criticality Documentation Date Start Date Code Code System Note Provider Name and Address Organization Details Recorded Time 264812 amoxicill in medicatio n swelling Not available Not available 12/17/2022 723 RxNorm Tyra Ferrari [place] null, [place] - [facility] 3 11:18:56 Medications Name Sig Start Date Stop Date [...] Available omeprazole 40 mg capsule,del ayed release Take 1 capsule by mouth once daily 2024 active Not Available Not Available Not Avai lable dicyclomine 20 mg tablet TAKE 1 TABLET [...] propionate 50 mcg/actuati on nasal spray,suspe nsion [place] 1 spray every day by intranasa l [...] Not Available Not Available Vitals Date Recorded Systolic And Diastolic Provider Name and Address Organization Details Last Updated DateTime 08/25/2024 132/88 mm[Hg] Carson HERNADEZ Attn: Accounting,[address] [place], [address], [facility] 08/29/2024 10:50:32 Date Recorded Body height Body mass index (BMI) Body weight Heart rate Oxygen saturation Oxygen saturation in Arterial blood by Pulse oximetry Provider Name and Address Organization Details Last Updated DateTime 5 177.8 cm 28.6 kg/m2 83674.8 8 g 90 /min 98 % 98 % Tyra Ferrari MA [facility] 5 17:13:55 Date Recorded Body height Body mass index (BMI) Body weight Heart rate Oxygen saturation Oxygen saturation in Arterial blood by Pulse oximetry Systolic And Diastolic Provider Name and Address Organization Details Last Updated DateTime 5 177.8 cm 27.3 kg/m2 28138.5 5 g 96 /min 96 % 96 % 113/70 mm[Hg] Tyra Ferrari MA [facility] 5 12:28:27 Date Recorded Body height Body mass index (BMI) Body weight Heart rate Oxygen saturation Oxygen saturation in Arterial blood by Pulse oximetry Systolic And Diastolic Provider Name and Address Organization Details Last Updated DateTime 5 177.8 cm 27 kg/m2 36128.3 7 g 86 /min 98 % 98 % 126/80 mm[Hg] Tyra Ferrari MA [facility] 5 09:06:21 Date Recorded Body height Body mass index (BMI) Body weight Heart rate Oxygen saturation Oxygen saturation in Arterial blood by Pulse oximetry Systolic And Diastolic Provider Name and Address Organization Details Last Updated DateTime 4 177.8 cm 29 kg/m2 51162.6 6 g 84 /min 97 % 97 % 153/76 mm[Hg] Tyra Ferrari MA [facility] 4 14:02:23 Date Recorded Respiratory rate Systolic And Diastolic Provider Name and Address Organization Details Last Updated DateTime 05/07/2023 18 /min 120/86 mm[Hg] DAMIEN SWANSON Attn: Accounting, [place], [address], [facility] 05/08/2023 09:08:17 Date Recorded Body height Body mass index (BMI) Body weight Oxygen saturation Oxygen saturation in Arterial blood by Pulse oximetry Heart rate Systolic And Diastolic Provider Name and Address Organization Details Last Updated DateTime 3 177.8 cm 27.3 kg/m2 41318.5 5 g 98 % 98 % 74 /min 118/72 mm[Hg] Tyra Ferrari [place] - [facility] 3 12:41:32 Social History Question Answer Notes LastModified by Organizat ion Details LastModified Time Tobacco Smoking Status Smoker, Current Status Unknown cigars, doesn't inhale DAMIEN HERNADEZ Attn: Accounting,[address] [place], [address] 10/17/2024 15:13:21 In The 14 Days Before Symptom Onset, [...] not available 08/25/2024 Sex: Male Functional Status Question Answer Note LastModified by Organization D etails LastModified Time What is your level of alcohol consumption? None Information not available 05/07/2023 Mental Status None recorded. Family History Relationship [...] 12/17/2022 completed DAMIEN HERNADEZ Attn: Accounting[address] [place], [address], [facility] 12/17/2022 13:55:17 Past Encounters Encounter ID Performer Location Encounter Start Date Encounter Closed Date Diagnosis/Indication Diagnosis SNOMED-CT Code Diagnosis ICD10 Code Diagnosis Note [id number] DAMIEN HERNADEZ [facility] [address] [place] [address] 12/17/2022 11:14:04 12/17/2022 11:41:40 Overweight 577618108 E66.3 Essential hypertension 69298709 I10 dx 3 years agocomplai nt on losartan 25 mgadvised no smoking cigarsDASH DIET Cholesterol screening 27 0205059 Z13.220 Gastroesop hageal reflux disease 451729320 K21.9 wean off. education given about reflex reflux. Low back pain 080341090 M54.50 2 weeks of lower back pain with radiation to hips Pain of mu ltiple joints 04760308 M25.50 b/l knee , wrists felt 3-4 x per day. worse after lifting heavy things at work and weather changes. Pain of bi lateral knee regions 2500395760 96226 M25.561 b/l knee pain all over x years multiple days of the weeworse with weather changes or heavy liftinghas not had xray or done PT yet PEX: normal ROM, no swelling or bony abnormalit y. - PT Insomnia 324968529 G47.0 0 Discussed sleep hygiene - no [...] work Lesion of skin of right ear 6218615376 7697488 H93.8X1 papule with regular borders and one color on right ear scaphia present for 6 yearswould like removal of thisdermat ology Administra tion of diphtheria, pertussis, and tetanus vaccine 303475726 Z23 given today [id number] DAMIEN HERNADEZ [facility] [address] [place] [address] 12/19/2022 09:35:16 12/19/2022 09:57:55 [id number] DAMIEN SWANSON [facility] [address] [place] [address] 05/07/2023 12:09:03 05/07/2023 13:07:27 Nausea 979891556 R11.0 a/w headachesn o vomiting, diarrhea, constipati on, or abd paintrial zofran Migraine 58173019 G43.90 9 x5 daysthrobb ing around his entire heada/w nausea and dizzinessn o relief with OTC medsno concerning sxPEx- nl, CN II-XII intact, romberg negative, EOMI intact without dizzinessu nknown etiology, BP under control, glasses 1 yr old, adequate sleep, food, fluid intakecoul d be related to increase stress and anxiety with new jobtrial imitrex c4xqmmh excedrin migraineRT W on 05/11/23, encouraged rest and increase fluid intakef/u in 1 wk if sx are not improved [id number] DAMIEN HERNADEZ [facility] [address] [place] [address] 11/16/2023 13:48:32 11/16/2023 14:37:47 Headache 23880962 R51.9 left sided headache resulting in ER visit. normal labs, CT head, CTA neck/head, cxr.has neurology f/y 12/09/23advi sed return to ER is worst headache of new neurologic al sx Essential hypertension 41517222 I10 elevated BP and increased weight from last visitadvis ed checking at home and f/u as he states he gets nervous coming heregood compliance on losartan 25 mgadvised no smoking cigarsDASH DIET Temporoman dibular joint disorder 30226705 M26.609 tender on palpationo ne episode of pain with chewing [id number] Abhishek Soto MD [facility] [address] [place] [address] 08/25/2024 17:05:26 08/25/2024 17:35:16 Nausea and vomiting 19338004 R11.2 one episode today of epigastric pain and vomiting w/o any more nausea, diarrhea, constipati on. no sick contacts. no recent travel. On exam he is midlly diffusely tender on abdomen. skin is dry and warm without color changes. Patient advised to seek ER if pain worsens, cannot keep down fluids or has fever.annie ent agrees Overweight 497663999 E66 .3 [id number] Abhishek Soto MD [facility] [address] [place] [address] 10/13/2024 12:21:20 10/13/2024 12:50:22 Abdominal pain 74667815 R10.9 severe episodes of abdominal pain lasting up to 45 minutes casing him to double over. He has had two CT scan and an EGD with GI. no test showing cause of pain.- nutcracker syndrome, nutcracker esophagus/ esophageal spasm, MSA, - next steps: swallow test, manometry? - continue following GI- trial nortriptyl ine- obtain MRI Spasm 46628713 R25.2 patient possibly having spasms in GI tractwill trial nortriptyl ine and obtain MRIhe is encouraged to f/u with GI Overweight 019379929 E66 .3 [id number] Abhishek Soto MD [facility] [address] [place] [address] 11/08/2024 09:00:20 11/08/2024 09:24:03 Abdominal pain 69593248 R10.9 abdominal pain improved on TCA and [...] GI- trial nortriptyl ine- obtain MRI Spasm 54369685 R25.2 patient possibly having spasms in GI tractwill trial nortriptyl ine and obtain MRIhe is encouraged to f/u with GI Health Concerns Section Related Observation LastModified by Organization Detai ls LastModified Time None Recorded Concern Status LastModified by Organization Details LastModified Time None Recorded Advance Directives Directive None Recorded Payers Insurance Date Sequence Insurance Name Policy Number Policy Jimenez Covered Member ID Jimenez Member ID Guarantor Name 11/08/2024 1 [employer] [id number] Joseph lau [id number] Joseph Andrews Jigar
--- OUTSIDE RECORDS SUMMARY | 2025-02-28 15:03 | XMS_ITS | Clinical Summary ---
Author Organization [facility] Address [address] [facility] [place] [address] Care Team Providers Care Special Delivery Mail Carrier Name Role Phone Unavailable Primary Care Provider Unavailabl e Source Comments [facility],non-owned Affiliates and Associated Physician Practices is amultiple site organization consisting of ambulatory clinics and hospital sitesin [place], [place], [place] and [place]. This disclosure is being madepursuant to the Care Everywhere program and may not contain all information available regarding this patient. 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 Gender Identity Not on file Sexual Orientation Not on file Plan of Treatment Health Maintenance Due Date Last Done Comments LIPID TESTING 1983 HIV SCREENING 1998 HEPATITIS C SCREENING 03/22/2001 DTAP/TDAP/TD VACCINES (1 - Tdap) 2002 HEPATITIS B VACCINE (1 of 3 - 19+ 3-dose series) 2002 HPV VACCINE (1 - 3-dose SCDM series) 2010 COVID-19 VACCINE ( - 2023-2 5 season) 2024 DEPRESSION SCREENING 08/03/2024 INFLUENZA VACCINE (#1) 2025 ZOSTER VACCINE (1 of 2) 2033 [...] age to complete this topic Insurance [facility] SELF PAY NO INSURANCE Member Subscriber Plan / Payer (Ef fective for All Dates) Name:Meenakshi JigarJoseph messer I Member ID:Not on file Relation to Subscriber:Not on file Name:MEENAKSHI GUERREROIREZJOSEPH Subscriber ID:Not on file (Home) Address: [address] [address] Payer ID:Not on file Group ID:Not on file Type:Self Pay Address: [place], [place] [facility] * Guarantor: JOSEPH CASTREJON Account Type Relation to Patient Date of Phone Billing Address Personal/Family Spouse
== END 2025-02-28 14:54 | disposition home or self-care (01) ==
PROVIDERS: PCP Physician Assistant; Visit Provider Nurse Practitioner
DX: M47.896 Other spondylosis, lumbar region (principal); K80.50 Calculus of bile duct without cholangitis or cholecystitis without obstruction; K76.0 Fatty (change of) liver, not elsewhere classified; Z90.49 Acquired absence of other specified parts of digestive tract
CPT/HCPCS: 72158; 74183; A9577

== ENCOUNTER 2025-03-16 01:05 | Day surgery (SDC) | payer BC, SELFPAY ==
[2025-03-13 15:59] VITALS: BMI 29.0
[2025-03-16] VITALS (7 sets, daily range): BP systolic 130–145; BP diastolic 82–94; PULSE 72–103; RESP 15–23; TEMP 36.3–36.6; O2SAT 99–100
--- NOTE | ~2025-03-16 | XR_ITS ---
INTRAOPERATIVE FLUOROSCOPY: CLINICAL HISTORY: 39 years old Male; CHOLOLITHIASIS/1 STONE EXTRACTED PROCEDURE COMMENTS: Limited intraoperative fluoroscopy of the right upper quadrant was performed. CUMULATIVE DOSE: 65 mGy FLUOROSCOPY TIME: 317 seconds FINDINGS/IMPRESSION: Please refer to operative note for further details. Reviewed, dictated and finalized at location A.
--- OUTSIDE RECORDS SUMMARY | 2025-03-16 01:08 | XMS_ITS | Clinical Summary ---
Author Organization [facility] Care Team Providers Care Metal Mixer Name Role Phone Unavailable Primary Care Provider [...] of 3 - 19+ 3-dose series) 2002 Human Papillomavirus (HPV) Immunization (1 - 3-dose SCDM series) 2010 SARS-COV-2 Immunization ( - season) 2024 Influenza [...]
--- OUTSIDE RECORDS SUMMARY | 2025-03-16 01:08 | XMS_ITS | Clinical Summary ---
Author Organization [facility] Address [address] [facility] [place] [address] Care Team Providers Care Splicing Supervisor Name Role Phone Unavailable Primary Care Provider Unavailabl e Source Comments [facility],non-owned Affiliates and Associated Physician Practices is amultiple site organization consisting of ambulatory clinics and hospital sitesin [place], [place], [place] and [place]. This disclosure is being madepursuant to the Care Everywhere program and may not contain all information available regarding this patient. Last updated 18.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 Gender Identity Not on file Sexual Orientation [...] age to complete this topic Insurance [facility] SELF PAY NO INSURANCE Member Subscriber Plan / Payer (Ef fective for All Dates) Name:Meenakshi JigarJoseph messer I Member ID:Not on file Relation to Subscriber:Not on file Name:MEENAKSHI GUERREROIREZJOSEPH Subscriber ID:Not on file (Home) Address: [address] [address] Payer ID:Not on file Group ID:Not on file Type:Self Pay Address: [place], [place] [facility] * Guarantor: JOSEPH CASTREJON Account Type Relation to Patient Date of Phone Billing Address Personal/Family Spouse
--- OUTSIDE RECORDS SUMMARY | 2025-03-16 01:08 | XMS_ITS | Clinical Summary ---
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 Gender Identity Not on file Sexual Orientation Not on file Last Filed Vital Signs Vital Sign Reading Time Taken Comments Blood Pressure 131/83 09/28/2024 7:30 PM TRAINING ASSOCIATE Pulse 76 09/28/2024 7:30 PM TRAINING ASSOCIATE Temperature 36.7 C (98 F) 09/28/2024 4:00 PM TRAINING ASSOCIATE Respiratory Rate 16 09/28/2024 7:30 PM TRAINING ASSOCIATE Oxygen Saturation 97% 09/28/2024 7:30 PM TRAINING ASSOCIATE Inhaled Oxygen Concentration - - Weight 87.1 kg (192 lb) 09/28/2024 1:34 PM TRAINING ASSOCIATE Height 167.6 cm (5' 6) 09/28/2024 1:34 PM TRAINING ASSOCIATE Body Mass Index 30.99 09/28/2024 1:34 PM TRAINING ASSOCIATE Plan of Treatment Health Maintenance Due Date [...] patient's age to complete this topic [place] Care Teams Manager Of Community Relations Relationship Specialty Start Date End Date Marlen Mcmahon PA PCP - General Physician Senior Sql Server Developer 09/28/24
--- NOTE | 2025-03-16 08:57 | P.PNAN_ITS ---
Anes - Initial Pre Proc Eval Procedure: Operation Date: 03/16/25 11:30 Proposed Procedures p Endoscopic Retro Cholangiopancreatogram - Raz Sharpe MD Date/Time: 03/16/25 08:57 Surgeon: Raz Sharpe MD Pre Op Diagnosis: Calculus of bile duct without cholangitis or agustin Patient Data Age: 39 Gender: M Height: 1.78 m Weight: 91.75 kg Allergies Allergy/AdvReac Type Severity Reaction Status Date / Time hydrocodone Allergy Unknown Jittery/ANXIOUS Verified 03/13/25 15:57 FEELING Home Medications ?Medication ?Instructions ?Recorded ?Confirmed ?Type losartan 25 mg tablet See Rx Instructions .Route 01/14/22 03/16/25 Rx .COMPLEX #90 tabs nortriptyline 25 mg capsule 25 mg PO QHS #30 caps 01/24/25 03/16/25 Rx omeprazole 40 mg capsule,delayed 40 mg PO DAILY 1 month #30 caps 02/27/25 03/16/25 Rx release Patient hx anesthesia problems: none Family hx anesthesia problems: none Results Review: All pre-operative results and documents have been reviewed as part of the pre- operative evaluation. [facility], [facility] Past Medical History Medical History Cervical disc herniation Cervical myelopathy with cervical radiculopathy Left-sided headache Dyspepsia Colon cancer screening Hx of type A viral hepatitis Epigastric pain Elevated transaminase level HTN (hypertension) GERD (gastroesophageal reflux disease) Surgical History Surgical History Hx of vasectomy Hx of cholecystectomy Hx of appendectomy Family History Family History Father Hypertension Diabetes mellitus Mixed hyperlipidemia Mother Hypothyroidism Mixed hyperlipidemia Sibling No problems noted. Social History Social History Social History: Years smoked: 5 Smoking status: Current every day smoker Tobacco type: cigars Second hand tobacco smoke exposure: Yes Additional smoking assessment comments: 2-3 a day, pt smokes cigars Alcohol intake: never Substance use: never Substance use type: does not use Do You Feel Safe in your Home?: Yes Lack of Transportation: No Lack of Food: Never True Current Housing: I Have Housing Concerned About Future Housing: No Difficulty Paying Gas/Electric Bills: No Difficulty Paying for Meds: No Currently Unemployed: No Education: High School Diploma/GED Difficulty w/ Childcare or Family Care: No Living arrangements: with family Additional living arrangements comments: Occupation/Education: occupation 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 Gender identity (if verbalized by the patient): Male Sexual Orientation (if Verbalized by the Patient): Straight or Heterosexual Spiritual care concerns: No Anes - Eval Final PreProcedure Day of Procedure 03/16/25 08:57 Patient weight: overweight Heart: regular rate and rhythm Lungs: clear to auscultation Airway: Mallampati scale class III Neurological: alert and oriented Last oral intake: >/= 8 hours ASA classification: II Emergent: no Anesthetic plan: proceed Anesthesia type and monitoring: general ETT and standard monitoring Results Review: All pre-operative results and documents have been reviewed as part of the pre- operative evaluation. Informed Consent: The patient's anesthetic plan and its attendant risks and benefits were discussed with the patient/family/POA. Questions were solicited and answers provided to the satisfaction of the patient/family/POA.
--- NOTE | 2025-03-16 10:56 | ECG_ITS ---
Test Date: 2025-03-16 11:14:29 Measurements Intervals [place] Rate: 75 P: 51 W[place]: 150 QRS: 24 QRSD: 84 T: 35 QT: 363 QTc: 407 Interpretive Statements SINUS RHYTHM DELAYED PRECORDIAL R/S TRANSITION MINIMAL Q WAVES- INFERIOR LEADS BORDERLINE ECG No previous ECG available for comparison Electronically Signed On 03-16-2025 12:33:43 CDT by Francisco Shah D.O.
[2025-03-16] MEDS: LACTATED RINGERS 1,000 ML 150 ML IV CONT (11:11)
--- NOTE | 2025-03-16 11:44 | P.HP_ITS ---
History of Present Illness History of Present Illness Consent: Risks, benefits, and alternatives have been discussed and questions answered. Patient agrees to proceed with procedure. Chief complaint: Calculus of bile duct without cholangitis or agustin Narrative: Joseph Kimball is a 39 year old male here for ercp, has been having intermittent abdominal pain, mri abdomen showed possible small stone in bile duct, he is post cholecystectomy. He is asymptomatic now Review of Systems Review of Systems: All systems reviewed & are unremarkable except as noted in HPI and below PMFSH Past Medical History Medical History Cervical disc herniation Cervical myelopathy with cervical radiculopathy Left-sided headache Dyspepsia Colon cancer screening Hx of type A viral hepatitis Epigastric pain Elevated transaminase level HTN (hypertension) GERD (gastroesophageal reflux disease) Surgical History Surgical History Hx of vasectomy Hx of cholecystectomy Hx of appendectomy Family History Family History Father Hypertension Diabetes mellitus Mixed hyperlipidemia Mother Hypothyroidism Mixed hyperlipidemia Sibling No problems noted. Social History Social History Social History: Years smoked: 5 Smoking status: Current every day smoker Tobacco type: cigars Second hand tobacco smoke exposure: Yes Additional smoking assessment comments: 2-3 a day, pt smokes cigars Alcohol intake: never Substance use: never Substance use type: does not use Do You Feel Safe in your Home?: Yes Lack of Transportation: No Lack of Food: Never True Current Housing: I Have Housing Concerned About Future Housing: No Difficulty Paying Gas/Electric Bills: No Difficulty Paying for Meds: No Currently Unemployed: No Education: High School Diploma/GED Difficulty w/ Childcare or Family Care: No Living arrangements: with family Additional living arrangements comments: Occupation/Education: occupation 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 Gender identity (if verbalized by the patient): Male Sexual Orientation (if Verbalized by the Patient): Straight or Heterosexual Spiritual care concerns: No Meds Home Medications and Allergies Home Medications ?Medication ?Instructions ?Recorded ?Confirmed ?Type losartan 25 mg tablet See Rx Instructions .Route 01/14/22 03/16/25 Rx .COMPLEX #90 tabs nortriptyline 25 mg capsule 25 mg PO QHS #30 caps 01/24/25 03/16/25 Rx omeprazole 40 mg capsule,delayed 40 mg PO DAILY 1 month #30 caps 02/27/25 03/16/25 Rx release Allergies Allergy/AdvReac Type Severity Reaction Status Date / Time hydrocodone Allergy Unknown Jittery/ANXIOUS Verified 03/13/25 15:57 FEELING Vital Signs Vital Signs - 24 hr 03/16/25 10:50 Temperature 97.8 F Pulse Rate 72 Respiratory Rate 18 Blood Pressure 143/89 H Pulse Oximetry 100 Oxygen Delivery Room Air Exam Const: General: comfortable and no acute distress HENMT: Face/Nose/Sinus: Normal nares present Eyes: General: appearance normal, both eyes and all related structures Neck: Neck: no JVD Resp: Auscultation: clear to auscultation bilaterally Cardio: Rate: regular rate Rhythm: regular rhythm GI: Inspection: non-distended GI Palp: Yes Soft to palpation Skin: General skin exam: normal color Neuro: Speech: normal speech Extrem: General: normal to inspection Psych: Mental Status: mental status grossly normal Assessment and Plan Assessment and plan (1) Choledocholithiasis: Code(s): K80.50 - Calculus of bile duct without cholangitis or cholecystitis without obstruction Status: Acute Assessment and Plan: ercp
[2025-03-16] MEDS: INDOMETHACIN 50 MG SUPP.RECT RECTAL (11:50)
== END 2025-03-16 13:50 | disposition home or self-care (01) ==
PROVIDERS: PCP Physician Assistant; Referring Provider Nurse Practitioner; Visit Provider Internal Medicine Gastroenterology
PROC: (CPT 43260; principal; 2025-03-16 11:30)
DX: K80.50 Calculus of bile duct without cholangitis or cholecystitis without obstruction (principal); I10 Essential (primary) hypertension; K21.9 Gastro-esophageal reflux disease without esophagitis; R74.01 Elevation of levels of liver transaminase levels; F17.290 Nicotine dependence, other tobacco product, uncomplicated; Z98.890 Other specified postprocedural states; Z90.49 Acquired absence of other specified parts of digestive tract
CPT/HCPCS: 43264; 43274; 74329; 93005; A9270; C2625; J0330; J1100; J2405; J2704; J7120; Q9966

== ENCOUNTER 2025-03-18 10:00 | Inpatient (IN) | payer BC, SELFPAY ==
[2025-03-18] VITALS (23 sets, daily range): BP systolic 121–146; BP diastolic 76–98; PULSE 80–121; RESP 14–40; TEMP 36.3–36.6; O2SAT 93–99
--- NOTE | ~2025-03-18 | CT_ITS ---
EXAMINATION: CT abdomen pelvis w con DATE: 03/18/2025 12:23 INDICATION: Pancreatitis TECHNIQUE: Computed tomography (CT) of the abdomen and pelvis was performed with 100 mL Omnipaque-350 intravenous contrast. Automated exposure control and iterative reconstruction technique were employe d. The dose-length product was 459.18 mGy-cm. COMPARISON: CT dated 08/29/2024 and MRI dated 02/28/2025 FINDINGS: Chronic elevation the right hemidiaphragm with interval increase in associated right basilar atelecta sis. There is also new bandlike discoid atelectasis in the left lower lobe and lingula. Heart size is normal. No pericardial or pleural effusion. Unchanged mild dilation of the common bile duct which me asures up to 10 mm likely related to prior cholecystectomy with surgical clips at the gallbladder fos sa. Liver is normal with no intrahepatic biliary ductal dilation. Persistent splenomegaly measuring 1 5.8 cm in craniocaudal length. Pancreatic ductal stent extending from the region of the neck of the p ancreas into the duodenum. Pancreas is otherwise normal with homogeneous enhancement, no dilation of the main pancreatic duct and no peripancreatic inflammatory stranding or fluid. Bilateral adrenal gla nds and kidneys are normal. Bowels are normal with no evident wall thickening or obstruction. The oumar endix is not visualized. No pericecal inflammatory change to suggest acute appendicitis. Bladder is n ormal. No free intraperitoneal gas or fluid. No pathologically enlarged abdominal or pelvic lymphaden opathy. L5 limbus vertebrae. Bones are otherwise unremarkable. IMPRESSION: 1. Pancreatic duct stent in expected position. Pancreas appears normal with no surrounding inflammato ry stranding to suggest acute proctitis although this is a clinical diagnosis and when mild can be ra diographically occult. No other acute intra-abdominal/pelvic process. 2. Chronic elevation of the right hemidiaphragm with increasing bibasilar atelectasis. Reviewed, dictated and finalized at location A. IMPRESSION: 1. Pancreatic duct stent in expected position. Pancreas appears normal with no surrounding inflammatory stranding to suggest acute proctitis although this is a clinical diagnosis and when mild can be radiographically occult. No other acu te intra-abdominal/pelvic process. 2. Chronic elevation of the right hemidiaphragm with increasing bibasilar atele ctasis.
--- NOTE | ~2025-03-18 | XR_ITS ---
Portable chest x-ray Comparison: 03/18/2025 Clinical History: Hemidiaphragm Findings: Lungs are clear, without focal consolidation or pleural effusion. Probable elevation right hemidiaphragm. Cardiomediastinal silhouette is stable. Bones and soft tissues are unremarkable. Impression: Clear lungs. Stable elevation right hemidiaphragm. Reviewed, dictated and finalized at location . Impression: Clear lungs. Stable elevation right hemidiaphragm.
--- NOTE | ~2025-03-18 | XR_ITS ---
EXAMINATION: XR chest 1V portable Exam Date/Time: 03/18/2025 14:00 CDT HISTORY: Atelectasis Comparison: 11/15/2023. RESULT: Lines, tubes, and devices: Cholecystectomy clips. Lungs and pleura: Somewhat nodular appearing opacity and streaky linear opacities in the left lung b ase. Linear and discoid scar/atelectasis in the right lower lung. Worsening right hemidiaphragm eleva tion. Cardiomediastinal silhouette: Stable. Other: No acute osseous or upper abdominal finding. IMPRESSION: Subsegmental left alar opacity may represent a focus of infection, hallux, or nodule. Recommend radio graphic follow-up to ensure resolution. Bibasilar scar. Worsening right hemidiaphragm elevation, randa mmend outpatient fluoroscopic sniff test. Reviewed, dictated and finalized at [facility]. IMPRESSION: Subsegmental left alar opacity may represent a focus of infection, hallux, or n odule. Recommend radiographic follow-up to ensure resolution. Bibasilar scar. W orsening right hemidiaphragm elevation, recommend outpatient fluoroscopic sniff test.
--- OUTSIDE RECORDS SUMMARY | 2025-03-18 10:03 | XMS_ITS | Clinical Summary ---
Author Organization [facility] Care Team Providers Care Aircraft Load Controller Name Role Phone Unavailable Primary Care Provider [...]
--- OUTSIDE RECORDS SUMMARY | 2025-03-18 10:03 | XMS_ITS | Clinical Summary ---
Author Organization [facility] Address [address] [place] [address] Care Team Providers Care Signal Tower Operator Name Role Phone Marlen Mcmahon Primary [...] on file Legal Sex Male 8:08 PM POLISHER BALANCE SCREWHEAD Gender Identity Not on file Sexual Orientation Not on file Last Filed Vital Signs Vital Sign Reading Time Taken Comments Blood Pressure 131/83 09/28/2024 7:30 PM POLISHER BALANCE SCREWHEAD Pulse 76 09/28/2024 7:30 PM POLISHER BALANCE SCREWHEAD Temperature 36.7 C (98 F) 09/28/2024 4:00 PM POLISHER BALANCE SCREWHEAD Respiratory Rate 16 09/28/2024 7:30 PM POLISHER BALANCE SCREWHEAD Oxygen Saturation 97% 09/28/2024 7:30 PM POLISHER BALANCE SCREWHEAD Inhaled Oxygen Concentration - - Weight 87.1 kg (192 lb) 09/28/2024 1:34 PM POLISHER BALANCE SCREWHEAD Height 167.6 cm (5' 6) 09/28/2024 1:34 PM POLISHER BALANCE SCREWHEAD Body Mass Index 30.99 09/28/2024 1:34 PM POLISHER BALANCE SCREWHEAD Plan of Treatment Health Maintenance Due Date [...] patient's age to complete this topic Insurance [place] Care Teams Signal Tower Operator Relationship Specialty Start Date End Date Marlen Mcmahon PA PCP - General Physician Licensed Aircraft Maintenance Engineer 09/28/24
--- OUTSIDE RECORDS SUMMARY | 2025-03-18 10:03 | XMS_ITS | Clinical Summary ---
Author Organization [facility] Address [address] [place] [address] Care Team Providers Care Furnace Brazer Name Role Phone Unavailable Primary Care Provider Unavailabl e Source Comments [facility],non-owned Affiliates and Associated Physician Practices is amultiple site organization consisting of ambulatory clinics and hospital sitesin [place], [place], [place] and [place]. This disclosure is being madepursuant to the Care Everywhere program and may not contain all information available regarding this patient. Last updated 18.[facility] Social History Tobacco Use Types Packs/Day Years Used Date Smoking Tobacco: Never Assessed Sex and Gender Information Value Date Recorded Sex Assigned at Not on file Legal Sex Male 6:23 PM LENS MATCHER Gender Identity Not on file Sexual Orientation [...] age to complete this topic Insurance [facility] SELF PAY NO INSURANCE Member Subscriber Plan / Payer (Ef fective for All Dates) Name:Meenakshi JigarJoseph messer I Member ID:Not on file Relation to Subscriber:Not on file Name:MEENAKSHI GUERREROIREZJOSEPH Subscriber ID:Not on file (Home) Address: [address], [place] [address] Payer ID:Not on file Group ID:Not on file Type:Self Pay Address: [place], [place] [facility] * Guarantor: JOSEPH CASTREJON Account Type Relation to Patient Date of Phone Billing Address Personal/Family Spouse
--- NOTE | 2025-03-18 10:23 | ECG_ITS ---
Test Date: 2025-03-18 10:26:46 Measurements Intervals [place] Rate: 105 P: 49 MS: 140 QRS: 11 QRSD: 81 T: 14 QT: 297 QTc: 393 Interpretive Statements SINUS TACHYCARDIA CONSIDER INFERIOR INFARCT, AGE INDETERMINATE ABNORMAL ECG Compared to ECG 03/16/2025 11:14:29 HEART RATE HAS INCREASED Electronically Signed On 03-18-2025 15:46:50 CDT by Francisco Shah D.O.
--- OUTSIDE RECORDS SUMMARY | 2025-03-18 10:30 | XMS_ITS | Clinical Summary ---
Author Organization [facility] Address [address] [place] [address] Care Team Providers Care Technology Sales Specialist Name Role Phone Marlen Mcmahon Primary Care [...] on file Legal Sex Male 8:08 PM MOBILITY ENGINEER Gender Identity Not on file Sexual Orientation Not on file Last Filed Vital Signs Vital Sign Reading Time Taken Comments Blood Pressure 131/83 09/28/2024 7:30 PM MOBILITY ENGINEER Pulse 76 09/28/2024 7:30 PM MOBILITY ENGINEER Temperature 36.7 C (98 F) 09/28/2024 4:00 PM MOBILITY ENGINEER Respiratory Rate 16 09/28/2024 7:30 PM MOBILITY ENGINEER Oxygen Saturation 97% 09/28/2024 7:30 PM MOBILITY ENGINEER Inhaled Oxygen Concentration - - Weight 87.1 kg (192 lb) 09/28/2024 1:34 PM MOBILITY ENGINEER Height 167.6 cm (5' 6) 09/28/2024 1:34 PM MOBILITY ENGINEER Body Mass Index 30.99 09/28/2024 1:34 PM MOBILITY ENGINEER Plan of Treatment Health Maintenance Due Date [...] patient's age to complete this topic Insurance [place] Care Teams Technology Sales Specialist Relationship Specialty Start Date End Date Marlen Mcmahon PA PCP - General Physician Contact Center Engineer 09/28/24
--- OUTSIDE RECORDS SUMMARY | 2025-03-18 10:30 | XMS_ITS | Clinical Summary ---
Author Organization [facility] Care Team Providers Care Machine Programmer Name Role Phone Unavailable Primary Care Provider [...]
--- OUTSIDE RECORDS SUMMARY | 2025-03-18 10:30 | XMS_ITS | Clinical Summary ---
Author Organization [facility] Address [address] [place] [address] Care Team Providers Care Brewing Director Name Role Phone Unavailable Primary Care Provider Unavailabl e Source Comments [facility],non-owned Affiliates and Associated Physician Practices is amultiple site organization consisting of ambulatory clinics and hospital sitesin [place], [place], [place] and [place]. This disclosure is being madepursuant to the Care Everywhere program and may not contain all information available regarding this patient. 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 ON WORKER Gender Identity Not on file Sexual Orientation [...] age to complete this topic Insurance [facility] SELF PAY NO INSURANCE Member Subscriber Plan / Payer (Ef fective for All Dates) Name:Meenakshi JigarJoseph messer I Member ID:Not on file Relation to Subscriber:Not on file Name:MEENAKSHI GUERREROIREZJOSEPH Subscriber ID:Not on file (Home) Address: [address], [place] [address] Payer ID:Not on file Group ID:Not on file Type:Self Pay Address: [place], [place] [facility] * Guarantor: JOSEPH CASTREJON Account Type Relation to Patient Date of Phone Billing Address Personal/Family Spouse
[2025-03-18] MEDS: SODIUM CHLORIDE 0.9% IV 1,000 ML 150 ML IV CONT (11:10)
[2025-03-18] MEDS: ONDANSETRON INJ 4 MG/2 ML VIAL IV PUSH (11:10)
[2025-03-18] MEDS: MORPHINE SULFATE (*CRX) 4 MG/ML INJ IV PUSH (11:10)
[2025-03-18 11:34] LABS: Hematocrit 47.3 % (42.0-52.0); Hemoglobin 16.7 g/dL (14.0-18.0); Immature Granulocyte Percent A 0.3 % (0-0.5); Lymphocytes Absolute Auto 2.19 K/mm3 (0.9-3.2); Mean Corpuscular HGB Conc 35.3 g/dl (32-36); Mean Corpuscular Hemoglobin 30.5 pg (26-34); Mean Corpuscular Volume 86.3 fl (80-100); Nucleated Red Blood Cells Absolute Auto 0.000 K/mm3 (0.0-0.012); Nucleated Red Blood Cells Perc 0.0 % (0.0-0.2); Platelet Count Result 200 k/mm3 (150-375); Red Blood Count 5.48 M/mm3 (4.6-6.20); White Blood Count 11.8 K/mm3 (4.5-10.0)
[2025-03-18 11:54] LABS: Alanine Aminotransferase 76 U/L (6-50); Albumin Level 4.4 g/dL (3.5-5.1); Alkaline Phosphatase 89 U/L (38-126); Anion Gap 8 mmol/L (4-12); Aspartate Amino Transferase 54 U/L (17-59); Bilirubin,Total 1.7 mg/dL (0.2-1.3); Blood Urea Nitrogen 22 mg/dL (9-20); Calcium 9.4 mg/dL (8.4-10.2); Carbon Dioxide 30 mmol/L (22-30); Chloride 101 mmol/L (98-107); Estimated CRCL calculation 73 ml/min; Estimated Glomerular Filt Rate > 60; Glucose 94 mg/dL (65-110); Lipase 1966 U/L (23-300); Potassium 3.7 mmol/L (3.4-5.0); Sodium 139 mmol/L (137-145); Total Protein 7.4 g/dL (6.3-8.2)
[2025-03-18 12:43] LABS: Add Urine Microscopic? NO; Appearance Urine Clear (Clear); Glucose Urine UA Negative (Negative); Leukocyte Esterase Ur Negative LEU/UL (Negative); Nitrate Urine Negative (Negative); Specific Grav Ur 1.039 (1.001-1.035)
--- NOTE | 2025-03-18 12:55 | P.HP_ITS ---
H&P: HPI History of Present Illness Date/Time: 03/18/25 12:55 Chief Complaint: Abdominal pain Narrative: 39-year-old male past medical history of hypertension, GERD, nonalcoholic fatty liver disease, with bile duct stone status post cholecystectomy with ERCP on 03/16/2025 with stent placement by GI presents the emergency room with abdominal pain. Patient was told the pain did not improve while he was at home to come back into the emergency room for evaluation. Patient states that while he was at home the pain was not decreasing. Any a cough that would irritate the abdominal pain. Patient does admit that there was a small amount vomit this morning almost nothing. Patient has a cough at bedside. He states that it started Thursday night, he states that makes abdominal pain worse. He denies shortness of breath. Patient denies sputum, fever chills. Patient does admit that there was a small amount vomit this morning almost nothing. Lab work in the ED shows leukocytosis at 11.8, BUN of 22, total bili of 1.7, AST of 76, lipase of 1966, UA negative for infection, CT abdomen shows pancreatic duct stent in expected position and normal appearing pancreas, and hemidiaphragm. Spoke to GI no need for consultation at the current time can follow-up outpatient in 3 weeks as planned as long as pain improves. If pain increases please consult GI. 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 [facility] Past Medical History Medical History Cervical disc herniation Cervical myelopathy with cervical radiculopathy Left-sided headache Dyspepsia Colon cancer screening Hx of type A viral hepatitis Epigastric pain Elevated transaminase level HTN (hypertension) GERD (gastroesophageal reflux disease) Surgical History Surgical History Hx of vasectomy Hx of cholecystectomy Hx of appendectomy Family History Family History Father Hypertension Diabetes mellitus Mixed hyperlipidemia Mother Hypothyroidism Mixed hyperlipidemia Sibling No problems noted. Social History Social History Social History: Years smoked: 5 Smoking status: Current every day smoker Tobacco type: cigars Second hand tobacco smoke exposure: No Additional smoking assessment comments: 2-3 a day, pt smokes cigars Alcohol intake: never Substance use: never Substance use type: does not use Do You Feel Safe in your Home?: Yes Lack of Transportation: No Lack of Food: Never True Current Housing: I Have Housing Concerned About Future Housing: No Difficulty Paying Gas/Electric Bills: No Difficulty Paying for Meds: No Currently Unemployed: No Education: High School Diploma/GED Difficulty w/ Childcare or Family Care: No Living arrangements: with family Additional living arrangements comments: Occupation/Education: occupation 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 Gender identity (if verbalized by the patient): Male Sexual Orientation (if Verbalized by the Patient): Straight or Heterosexual Spiritual care concerns: No Meds Home Medications and Allergies Home Medications ?Medication ?Instructions ?Recorded ?Confirmed ?Type losartan 25 mg tablet See Rx Instructions .Route 01/14/22 03/18/25 Rx .COMPLEX #90 tabs nortriptyline 25 mg capsule 25 mg PO QHS #30 caps 01/24/25 03/18/25 Rx omeprazole 40 mg capsule,delayed 40 mg PO DAILY 1 month #30 caps 02/27/25 03/18/25 Rx release Allergies Allergy/AdvReac Type Severity Reaction Status Date / Time hydrocodone Allergy Unknown Jittery/ANXIOUS Verified 03/13/25 15:57 FEELING Vital Signs Vital Signs - 24 hr 03/18/25 10:22 03/18/25 10:23 03/18/25 10:23 Temperature 97.9 F Pulse Rate 108 H 121 H 109 H Respiratory Rate 33 H 18 26 H Blood Pressure 133/94 H 141/80 H Pulse Oximetry 97 98 96 Oxygen Delivery Room Air Exam Narrative: General: well appearing, appears stated age. HEENT: normocephalic, atraumatic. Mucous membranes moist. EOMI, PERRLA, bilateral sclera anicteric, no conjunctival injection. Neck supple without JVD, lymphadenopathy, or bruit. Respiratory: clear to ascultation bilaterally. Dry cough Cardiovascular: Regular rate and rhythm, normal S1-S2 upon ascultation. No murmurs, rubs, or clicks. PMI is nondisplaced, capillary refill less than 3 second. Abdomen: Soft, round, no pulsatile masses, nondistended. Tenderness to epigastric area and right quadrant. No rebound, no guarding. No CVA tenderness, no hepatosplenomegaly. Bowel sounds present to all four quadrants. No high pitch or tinkling sounds, resonant to percussion. Extremities: No cyanosis, clubbing, or edema present. Pulses are palpable 2/2. Active ROM to all four extremities. Neuro: Alert and orientated x 4. PERRLA. Cranial nerves 2-12 intact without focal deficit. Skin: Warm, dry, and intact, without rash, erythema, or lesion. Psych: pleasant, cooperative, normal speech, normal affect, no hallucinations, no dysarthia H&P: Results Labs Labs: Short CBC 03/18/25 Range/Units 11:10 WBC 11.8 H (4.5-10.0) K/mm3 Hgb 16.7 (14.0-18.0) g/dL Hct 47.3 (42.0-52.0) % Plt Count 200 (150-375) k/mm3 BMP 03/18/25 11:10 Sodium 139 Potassium 3.7 Chloride 101 Carbon Dioxide 30 BUN 22 H Creatinine 1.23 Glucose 94 Calcium 9.4 Liver Function 03/18/25 Range/Units 11:10 Total Bilirubin 1.7 H (0.2-1.3) mg/dL AST 54 (17-59) U/L ALT 76 H (6-50) U/L Alkaline Phosphatase 89 (38-126) U/L Albumin 4.4 (3.5-5.1) g/dL Assessment and Plan Assessment and plan (1) Pancreatitis: Code(s): K85.90 - Acute pancreatitis without necrosis or infection, unspecified Status: Acute Assessment and Plan: Likely post ERCP pancreatitis Spoke with Dr. Iniguez over the phone about CT findings and elevated lipase, states that is likely postop pancreatitis, which can happen after ERCP. Current recommendations for advancing diet slowly, IV fluids and follow-up outpatient 3 weeks in the office to check stent. IV morphine and Toradol for pain control 1 LR bolus followed by a 200 mL per hour Repeat lipase in the morning (2) Pneumonia: Code(s): J18.9 - Pneumonia, unspecified organism Status: Acute Assessment and Plan: Rocephin and azithromycin Guaifenesin Incentive spirometer Repeat checks x-ray in the morning Chest x-ray right hemidiaphragm recommending fluoroscopic sniff test outpatient (3) Leukocytosis: Code(s): D72.829 - Elevated white blood cell count, unspecified Status: Acute Assessment and Plan: Leukocytosis is common finding pancreatitis CBC in a.m. Possible pneumonia on CT and x-ray (4) NAFLD (nonalcoholic fatty liver disease): Code(s): K76.0 - Fatty (change of) liver, not elsewhere classified Status: Acute Assessment and Plan: History of NAFLD Patient of Dr. Iniguez (5) Elevated liver enzymes: Code(s): R74.8 - Abnormal levels of other serum enzymes Status: Acute Assessment and Plan: Repeat CMP in the morning (6) Constipation: Code(s): K59.00 - Constipation, unspecified Status: Acute Assessment and Plan: Senna S (7) Depression: Code(s): F32.A - Depression, unspecified Status: Acute Assessment and Plan: Continue nortriptyline (8) HTN (hypertension): Qualifiers: Hypertension type: primary hypertension Qualified Code(s): I10 - Essential (primary) hypertension Code(s): I10 - Essential (primary) hypertension Status: Acute Assessment and Plan: Continue losartan L Quality VTE Prophylaxis VTE prophylaxis: mechanical ordered If No VTE Prophylaxis Answer both mechanical and pharmacologic: Reason no pharmacologic proph: low risk/not indicated Hospitalist MIPS Advance Care Plan I have confirmed that the patient's Advanced Care Plan is present, code status is documented, or surrogate decision maker is listed in patient medical record.: Yes Medication Reconciliation I have utilized all available resources to obtain, update and review the patients current medications (includes all prescriptions, OTC, herbals, cannabis, and nutritional supplements).: Yes
--- NOTE | 2025-03-18 13:59 | ED_ITS ---
HPI - Abdominal Pain General Chief Complaint: Abdominal Pain Stated Complaint: flank pain, had kidney stone surgery Time Seen by Provider: 03/18/25 10:21 Source: patient and family Mode of arrival: ambulatory Limitations: language barrier History of Present Illness HPI narrative: 39-year-old with a history of hypertension, choledocholithiasis status post ERCP with pancreatic duct stent placement 2 days ago no having pain for past few days , if his treated with some nausea. No history of fever but chills. Endorses Dr. Iniguez as his GI MD elicited complaint: abdominal pain Pertinent past history: other (Pancreatic duct stent placed) Onset (ago): day(s) (2) Pain Consistency: constant Location: epigastric, RUQ and RLQ Severity: moderate Quality: aching Radiation: none Exacerbating factors: nothing Relieving factors: nothing Context: confirms recent surgery/procedure Associated symptoms: nausea Related Data Allergies Allergy/AdvReac Type Severity Reaction Status Date / Time hydrocodone Allergy Unknown Jittery/ANXIOUS Verified 03/13/25 15:57 FEELING Review of Systems 2 Review of Systems: All systems reviewed & are unremarkable except as noted in HPI and below Constitutional: Constitutional: Reports no additional constitutional complaints Eyes: Eyes: Reports no additional eye complaints ENT: Reports system reviewed and no additional complaints, except as documented Cardiovascular: Cardiovascular: Reports no additional cardiovascular complaints Respiratory: Respiratory: Reports no additional respiratory complaints Gastrointestinal: Gastrointestinal: Reports as per HPI Musculoskeletal: Musculoskeletal: Reports no additional musculoskeletal complaints PMF Past Medical History Medical History Cervical disc herniation Cervical myelopathy with cervical radiculopathy Left-sided headache Dyspepsia Colon cancer screening Hx of type A viral hepatitis Epigastric pain Elevated transaminase level HTN (hypertension) GERD (gastroesophageal reflux disease) Surgical History Surgical History Hx of vasectomy Hx of cholecystectomy Hx of appendectomy Family History Family History Father Hypertension Diabetes mellitus Mixed hyperlipidemia Mother Hypothyroidism Mixed hyperlipidemia Sibling No problems noted. Social History Social History Social History: Years smoked: 5 Smoking status: Current every day smoker Tobacco type: cigars Second hand tobacco smoke exposure: Yes Additional smoking assessment comments: 2-3 a day, pt smokes cigars Alcohol intake: never Substance use: never Substance use type: does not use Do You Feel Safe in your Home?: Yes Lack of Transportation: No Lack of Food: Never True Current Housing: I Have Housing Concerned About Future Housing: No Difficulty Paying Gas/Electric Bills: No Difficulty Paying for Meds: No Currently Unemployed: No Education: High School Diploma/GED Difficulty w/ Childcare or Family Care: No Living arrangements: with family Additional living arrangements comments: Occupation/Education: occupation 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 HEAD: Normocephalic, atraumatic. EYES: PERRLA and EOMI. ENT: Nares clear, no rhinorrhea or epistaxis. Mucous membranes moist. NECK: Supple. CHEST: Clear to auscultation. No respiratory distress. HEART: Regular rate and rhythm. No murmur heard. Normal peripheral pulses. ABDOMEN: Soft, tender on the right, nondistended, normal active bowel sounds. EXTREMITIES: Normal range of motion. No edema. SKIN: Warm, dry, no rash. NEURO: No focal deficits. Alert and oriented x3. PSYCH: Normal mood and affect. Course Course Emergency Course: Pain slightly improved with IV morphine. Informed him and his about his lab work CT findings. Agreeable with admission. Discussed with Dr. Iniguez will consult the patient. Vital Signs Vital signs: Vital Signs Pulse Rate 108 H 03/18/25 10:22 Respiratory Rate 33 H 03/18/25 10:22 Pulse Oximetry 97 03/18/25 10:22 Temperature 36.6 C 03/18/25 10:23 Pulse Rate 109 H 03/18/25 10:23 Respiratory Rate 26 H 03/18/25 10:23 Blood Pressure 141/80 H 03/18/25 10:23 Pulse Oximetry 96 03/18/25 10:23 Oxygen Delivery Room Air 03/18/25 10:23 MDM - Abdominal Pain MDM Narrative Medical decision making narrative: 39-year-old status post pancreatic stent placement now having upper abdominal pain will do lab work including CT to rule out pancreatitis. Meanwhile control his pain with IV morphine. Differential Diagnosis Differential diagnosis: Likely constipation, gastroenteritis, pancreatitis and small bowel obstruction Medical Records Attestation: I reviewed the patient's medical records. Lab Data Attestation: I reviewed the patient's lab results. 03/18/25 11:10 03/18/25 11:10 Labs: Lab Results 03/18/25 03/18/25 Range/Units 11:10 12:33 WBC 11.8 H (4.5-10.0) K/mm3 RBC 5.48 (4.6-6.20) M/mm3 Hgb 16.7 (14.0-18.0) g/dL Hct 47.3 (42.0-52.0) % MCV 86.3 (80-100) fl MCH 30.5 (26-34) pg MCHC 35.3 (32-36) g/dl RDW 12.8 (11.5-14.5) % Plt Count 200 (150-375) k/mm3 MPV 11.1 H (7.4-10.4) fl Immature Gran % (Auto) 0.3 (0-0.5) % Neut % (Auto) 72.5 (45.5-73.1) % Lymph % (Auto) 18.5 (18.3-44.2) % [place] % (Auto) 7.6 (2.6-8.5) % Eos % (Auto) 0.8 (0-4.4) % Baso % (Auto) 0.3 (0.2-1.2) % Lymph # (Auto) 2.19 (0.9-3.2) K/mm3 [place] # (Auto) 0.9 H (0.1-0.6) K/mm3 Eos # (Auto) 0.1 (0-0.3) K/mm3 Baso # (Auto) 0.0 (0.0-0.1) K/mm3 Abs Immat Gran (auto) 0.03 (0.00-0.031) K/mm3 Absolute Neuts (auto) 8.6 H (1.3-6.7) K/mm3 Absolute Nucleated RBC 0.000 (0.0-0.012) K/mm3 Nucleated RBC % 0.0 (0.0-0.2) % Sodium 139 (137-145) mmol/L Potassium 3.7 (3.4-5.0) mmol/L Chloride 101 (98-107) mmol/L Carbon Dioxide 30 (22-30) mmol/L Anion Gap 8 (4-12) mmol/L BUN 22 H (9-20) mg/dL Creatinine 1.23 (0.7-1.3) mg/dL Estim Creat Clear Calc 73 ml/min Estimated GFR > 60 (59 - ) Glucose 94 (65-110) mg/dL Calcium 9.4 (8.4-10.2) mg/dL Total Bilirubin 1.7 H (0.2-1.3) mg/dL AST 54 (17-59) U/L ALT 76 H (6-50) U/L Alkaline Phosphatase 89 (38-126) U/L Total Protein 7.4 (6.3-8.2) g/dL Albumin 4.4 (3.5-5.1) g/dL Lipase 1966 H (23-300) U/L Urine Color Yellow (Yellow) Urine Appearance Clear (Clear) Urine pH 6.5 (5.0-9.0) Ur Specific [place] 1.039 H (1.001-1.035) Urine Protein Negative (Negative) mg/dL Urine Glucose (UA) Negative (Negative) mg/dL Urine Ketones Negative (Negative) mg/dL Ur Blood (Man) Negative (Negative) Urine Nitrate Negative (Negative) Urine Bilirubin Negative (Negative) Urine Urobilinogen 1.0 (<2.0) mg/dL Leukocyte Esterase Rfl Negative (Negative) MALATHI/UL Imaging Data Radiologist's impression: ITS Impressions Abdomen/Pelvis CT 03/18/25 12:52 IMPRESSION: 1. Pancreatic duct stent in expected position. Pancreas appears normal with no surrounding inflammatory stranding to suggest acute proctitis although this is a clinical diagnosis and when mild can be radiographically occult. No other acute intra-abdominal/pelvic process. 2. Chronic elevation of the right hemidiaphragm with increasing bibasilar atelectasis. ECG Data EKG #1: ECG completion date: 03/18/25 ECG completion time: 10:26 tachycardia (105), no ectopy, normal QRS and normal QT Discharge Plan Discharge Clinical Impression: Pancreatitis Qualifiers: Chronicity: acute Pancreatitis type: unspecified pancreatitis type Acute pancreatitis complication: no infection or necrosis Qualified Code(s): K85.90 - Acute pancreatitis without necrosis or infection, unspecified Patient Disposition: Still a Patient Condition: Stable Instructions: Antibiotic Form Patient Language: Kittitian Prescriptions: No Action losartan 25 mg tablet See Rx Instructions .ROUTE .COMPLEX Qty: 90 1RF Dose Instruction: Take 1 tablet by mouth once daily Rx Instructions: Take 1 tablet by mouth once daily nortriptyline 25 mg capsule 25 mg PO QHS Qty: 30 3RF omeprazole 40 mg capsule,delayed release(DR/EC) 40 mg PO DAILY 30 Days Qty: 30 5RF Follow-up/Referrals: Salome,DAMIEN Miller [Primary Care Provider] - Time of Disposition: 14:01
[2025-03-18] MEDS: KETOROLAC 15 MG/ML VIAL (*BKC) IV PUSH ×2 (14:40→21:07)
[2025-03-18] MEDS: LACTATED RINGERS 1,000 ML 999 ML IV CONT (14:40)
--- NOTE | 2025-03-18 16:09 | ADMGEN ---
This patient, Joseph Kimball, was admitted to 2 Medical Room 244-. Patient/family oriented to hospital policies and general routines including ID bracelet, bed and alarms, visiting hours, pain management, procedures, bathroom and other care routines, personal items, smoking policy, room service/diet, and visiting hours. Information on how to activate the Rapid Response Team has been discussed. Patient/Family are encouraged to report perceived risks to care and to ask questions if they do not understand what they are told or what they should do.
[2025-03-18] MEDS: cefTRIAXone 1 GM in SODIUM CHLORIDE 0.9% IV 50 ML 100 ML IVPB (17:52)
[2025-03-18] MEDS: LACTATED RINGERS 1,000 ML 200 ML IV CONT ×2 (18:34→23:18)
[2025-03-18] MEDS: AZITHROMYCIN IV 500 MG in SODIUM CHLORIDE 0.9% IV 250 ML IVPB (18:34)
[2025-03-18] MEDS: NORTRIPTYLINE HCL 25 MG CAPSULE PO (21:07)
[2025-03-18] MEDS: SENNA/DOCUSATE SODIUM TABLET 1 TAB PO (21:07)
[2025-03-18] MEDS: guaiFENesin 12 HR 600 MG TABCR 1200 MG PO (21:07)
[2025-03-19] MEDS: KETOROLAC 15 MG/ML VIAL (*BKC) IV PUSH ×4 (02:32→20:50)
[2025-03-19] MEDS: LACTATED RINGERS 1,000 ML 200 ML IV CONT ×4 (04:42→20:51)
[2025-03-19 04:57] LABS: Hematocrit 40.7 % (42.0-52.0); Hemoglobin 14.1 g/dL (14.0-18.0); Immature Granulocyte Percent A 0.4 % (0-0.5); Lymphocytes Absolute Auto 1.95 K/mm3 (0.9-3.2); Mean Corpuscular HGB Conc 34.6 g/dl (32-36); Mean Corpuscular Hemoglobin 30.5 pg (26-34); Mean Corpuscular Volume 87.9 fl (80-100); Nucleated Red Blood Cells Absolute Auto 0.000 K/mm3 (0.0-0.012); Nucleated Red Blood Cells Perc 0.0 % (0.0-0.2); Platelet Count Result 150 k/mm3 (150-375); Red Blood Count 4.63 M/mm3 (4.6-6.20); White Blood Count 7.8 K/mm3 (4.5-10.0)
[2025-03-19 05:09] VITALS: BP 130/87; PULSE 80; RESP 18; TEMP 36.4; O2SAT 99
[2025-03-19 05:18] LABS: Alanine Aminotransferase 64 U/L (6-50); Albumin Level 3.5 g/dL (3.5-5.1); Alkaline Phosphatase 77 U/L (38-126); Anion Gap 5 mmol/L (4-12); Aspartate Amino Transferase 41 U/L (17-59); Bilirubin,Total 2.3 mg/dL (0.2-1.3); Blood Urea Nitrogen 18 mg/dL (9-20); Calcium 8.9 mg/dL (8.4-10.2); Carbon Dioxide 28 mmol/L (22-30); Chloride 103 mmol/L (98-107); Estimated CRCL calculation 87 ml/min; Estimated Glomerular Filt Rate > 60; Glucose 101 mg/dL (65-110); Lipase 1112 U/L (23-300); Potassium 4.1 mmol/L (3.4-5.0); Sodium 136 mmol/L (137-145); Total Protein 6.0 g/dL (6.3-8.2)
[2025-03-19] MEDS: LOSARTAN POTASSIUM 25 MG TABLET BY MOUTH (09:55)
[2025-03-19] MEDS: PANTOPRAZOLE 40 MG TABLET PO ×2 (09:55→16:19)
[2025-03-19] MEDS: guaiFENesin 12 HR 600 MG TABCR 1200 MG PO ×2 (09:55→20:52)
--- NOTE | 2025-03-19 10:09 | P.PNIM_ITS ---
Progress Note: A&P Assessment and Plan (1) Pancreatitis: Code(s): K85.90 - Acute pancreatitis without necrosis or infection, unspecified Status: Acute Assessment and Plan: Likely post ERCP pancreatitis Spoke with Dr. Iniguez over the phone about CT findings and elevated lipase, states that is likely postop pancreatitis, which can happen after ERCP. Current recommendations for advancing diet slowly, IV fluids and follow-up outpatient 3 weeks in the office to check stent. IV morphine and Toradol for pain control 1 LR bolus followed by a 200 mL per hour Repeat lipase in the morning 03/19/25: * Lipase starting to trend down. Continue to follow trend * Awaiting GI consult * Continue IV pain medications * Clear liquid diet only * Consider MRCP if felt to be beneficial by GI to rule out Choledocholithiasis given Hyperbilirubinemia. * Continue PPI therapy and LR for hydration. (2) Pneumonia: Code(s): J18.9 - Pneumonia, unspecified organism Status: Acute Assessment and Plan: Rocephin and azithromycin Guaifenesin Incentive spirometer Repeat checks x-ray in the morning Chest x-ray right hemidiaphragm recommending fluoroscopic sniff test outpatient 03/19/25: * Continue IS, abx * Repeat CXR this AM shows clear lungs and stable elevation to right hem idiaphragm, but no signs of acute PNA. (3) Leukocytosis: Code(s): D72.829 - Elevated white blood cell count, unspecified Status: Resolved Assessment and Plan: Leukocytosis is common finding pancreatitis CBC in a.m. Possible pneumonia on CT and x-ray 03/19/25: * Resolved (4) NAFLD (nonalcoholic fatty liver disease): Code(s): K76.0 - Fatty (change of) liver, not elsewhere classified Status: Acute Assessment and Plan: History of NAFLD Patient of Dr. Iniguez 03/19/25: * Awaiting evaluation by Dr. Iniguez (5) Elevated liver enzymes: Code(s): R74.8 - Abnormal levels of other serum enzymes Status: Acute Assessment and Plan: Repeat CMP in the morning 03/19/25: * Bilirubin this AM is 2.3. * Awaiting GI consultation. (6) Constipation: Code(s): K59.00 - Constipation, unspecified Status: Acute Assessment and Plan: Senna S (7) Depression: Code(s): F32.A - Depression, unspecified Status: Acute Assessment and Plan: Continue nortriptyline (8) HTN (hypertension): Qualifiers: Hypertension type: primary hypertension Qualified Code(s): I10 - Essential (primary) hypertension Code(s): I10 - Essential (primary) hypertension Status: Acute Assessment and Plan: Continue losartan 03/19/25: * Stable BP's * Continue current regimen. Time Spent With Patient Time with patient: 25 - 35 minutes Subjective Date/time seen: 03/19/25 10:09 Interval history: Pt examined at the bedside with family present serving as interpreters with pt's permission. He complains still of pain in the RUQ, not LUQ. Lipase today is 1112. No vomiting overnight and no other new symptoms to report. Awaiting GI consult and recs. Pt notes that pain medication does help his symptoms. Review of Systems Review of Systems: All systems reviewed & are unremarkable except as noted in HPI and below Exam Narrative: General: well appearing, appears stated age. HEENT: Atraumatic/Normocephalic, MMM Respiratory: CTAB Cardiovascular: RRR, S1 and S2 present without S3, S4,m,r,g,h Abdomen: Soft, TTP RUQ, no HSM and negative Rod's sign, BS+x4 Extremities: No cyanosis, clubbing, or edema present. Pulses are palpable 2/2. Active ROM to all four extremities. Neuro: A&Ox4. PERRLA. CN 2-12 intact without any focal deficit. Skin: Warm, dry, and intact, without rash, erythema, or lesion. Psych: Pleasant, Normal affect and cooperative. Objective Data Vital Signs Vital Signs: Vital Signs - 24 hr 03/18/25 10:22 03/18/25 10:23 03/18/25 10:23 Temperature 97.9 F Pulse Rate 108 H 121 H 109 H Respiratory Rate 33 H 18 26 H Blood Pressure 133/94 H 141/80 H Pulse Oximetry 97 98 96 Oxygen Delivery Room Air 03/18/25 10:24 03/18/25 10:30 03/18/25 10:31 Temperature Pulse Rate 109 H 104 H 102 H Respiratory Rate 19 40 H 22 H Blood Pressure 121/90 Pulse Oximetry 97 99 94 Oxygen Delivery 03/18/25 10:45 03/18/25 10:46 03/18/25 11:00 Temperature Pulse Rate 107 H 105 H 103 H Respiratory Rate 26 H 21 H 21 H Blood Pressure 131/85 Pulse Oximetry 95 95 95 Oxygen Delivery 03/18/25 11:01 03/18/25 11:15 03/18/25 11:16 Temperature Pulse Rate 107 H 111 H 107 H Respiratory Rate 22 H 36 H 37 H Blood Pressure 137/76 141/89 H Pulse Oximetry 95 95 97 Oxygen Delivery 03/18/25 11:30 03/18/25 11:31 03/18/25 11:45 Temperature Pulse Rate 98 98 100 Respiratory Rate 24 H 27 H 18 Blood Pressure 135/89 Pulse Oximetry 95 95 93 Oxygen Delivery 03/18/25 11:46 03/18/25 12:00 03/18/25 12:01 Temperature Pulse Rate 98 99 99 Respiratory Rate 18 17 20 Blood Pressure 140/86 138/88 Pulse Oximetry 94 94 94 Oxygen Delivery 03/18/25 12:27 03/18/25 12:30 03/18/25 14:45 Temperature Pulse Rate 98 104 H 97 Respiratory Rate 18 17 22 H Blood Pressure 144/98 H Pulse Oximetry 95 96 94 Oxygen Delivery 03/18/25 14:46 03/18/25 15:45 03/18/25 20:46 Temperature 97.4 F L 97.6 F Pulse Rate 93 87 80 Respiratory Rate 14 18 16 Blood Pressure 146/84 H 137/77 Pulse Oximetry 96 98 96 Oxygen Delivery 03/18/25 20:58 03/19/25 05:09 Temperature 97.6 F Pulse Rate 80 Respiratory Rate 18 Blood Pressure 130/87 Pulse Oximetry 99 Oxygen Delivery Room Air Intake/Output Intake/Output: Intake & Output 03/16/25 03/17/25 03/18/25 03/19/25 23:59 23:59 23:59 23:59 Intake Total 2124.2 2400 Balance 2124.2 2400 Meds/Results Medications: Active Medications Generic Name Dose Route Start Last Admin Trade Name Freq PRN Reason Stop Dose Admin Acetaminophen 650 mg 03/18/25 14:14 Acetaminophen 325 Mg Tablet PO Q4H PRN Mild Pain (1-3) or Fever Guaifenesin 1,200 mg 03/18/25 21:00 03/19/25 09:55 Guaifenesin 12 Hr 600 Mg Tabcr PO 1,200 mg Q12HR TRAN Administration Lactated Ringer's 1,000 mls @ 200 mls/hr 03/18/25 13:40 03/19/25 09:47 Lr - Lactated Ringers Iv IV CONT 200 mls/hr .Q5H TRAN Administration Ceftriaxone Sodium 1 gm/ 50 mls @ 100 mls/hr 03/18/25 17:00 03/18/25 18:22 Sodium Chloride IVPB Infused Q24H TRAN Infusion Azithromycin 500 mg/ Sodium 250 mls @ 250 mls/hr 03/18/25 18:00 03/18/25 19:34 Chloride IVPB 03/22/25 18:59 Infused Q24H TRAN Infusion Ketorolac Tromethamine 15 mg 03/18/25 14:00 03/19/25 09:54 Ketorolac 15 Mg/Ml Vial (*Bkc) IV PUSH 15 mg Q6H TRAN Administration Losartan Potassium 25 mg 03/19/25 09:00 03/19/25 09:55 Losartan Potassium 25 Mg Tablet BY MOUTH 25 mg DAILY TRAN Administration Morphine Sulfate 2 mg 03/18/25 13:40 Morphine Sulfate (*Crx) 2 Mg/Ml Inj IV PUSH Q3HR PRN Pain Rated 7-10 Morphine Sulfate 2 mg 03/18/25 14:14 Morphine Sulfate (*Crx) 2 Mg/Ml Inj IV PUSH Q2H PRN Pain Rated 7-10 Nortriptyline HCl 25 mg 03/18/25 21:00 03/18/25 21:07 Nortriptyline Hcl 25 Mg Capsule PO 25 mg QHS TRAN Administration Pantoprazole Sodium 40 mg 03/19/25 09:00 03/19/25 09:55 Pantoprazole 40 Mg Tablet PO 40 mg BID TRAN Administration Senna/Docusate Sodium 1 tab 03/18/25 21:00 03/18/25 21:07 Senna/Docusate Sodium Tablet PO 1 tab HS TRAN Administration Trimethobenzamide HCl 200 mg 03/18/25 16:29 Trimethobenzamide Hcl 200 Mg/2 Ml Vial IM Q6H PRN Nausea And Vomiting Radiology Results: ITS Impressions Abdomen/Pelvis CT 03/18/25 12:52 IMPRESSION: 1. Pancreatic duct stent in expected position. Pancreas appears normal with no surrounding inflammatory stranding to suggest acute proctitis although this is a clinical diagnosis and when mild can be radiographically occult. No other acute intra-abdominal/pelvic process. 2. Chronic elevation of the right hemidiaphragm with increasing bibasilar atelectasis. Chest X-Ray 03/19/25 06:44 Impression: Clear lungs. Stable elevation right hemidiaphragm. Labs Labs: Laboratory Results - last 24 hr 03/18/25 03/18/25 03/19/25 11:10 12:33 04:25 WBC 11.8 H 7.8 RBC 5.48 4.63 Hgb 16.7 14.1 Hct 47.3 40.7 L MCV 86.3 87.9 MCH 30.5 30.5 MCHC 35.3 34.6 RDW 12.8 12.8 Plt Count 200 150 MPV 11.1 H 10.8 H Immature Gran % (Auto) 0.3 0.4 Neut % (Auto) 72.5 62.7 Lymph % (Auto) 18.5 25.1 [place] % (Auto) 7.6 9.4 H Eos % (Auto) 0.8 2.1 Baso % (Auto) 0.3 0.3 Lymph # (Auto) 2.19 1.95 [place] # (Auto) 0.9 H 0.7 H Eos # (Auto) 0.1 0.2 Baso # (Auto) 0.0 0.0 Abs Immat Gran (auto) 0.03 0.03 Absolute Neuts (auto) 8.6 H 4.9 Absolute Nucleated RBC 0.000 0.000 Nucleated RBC % 0.0 0.0 Sodium 139 136 L Potassium 3.7 4.1 Chloride 101 103 Carbon Dioxide 30 28 Anion Gap 8 5 BUN 22 H 18 Creatinine 1.23 1.02 Estim Creat Clear Calc 73 87 Estimated GFR > 60 > 60 Glucose 94 101 Calcium 9.4 8.9 Total Bilirubin 1.7 H 2.3 H AST 54 41 ALT 76 H 64 H Alkaline Phosphatase 89 77 Total Protein 7.4 6.0 L Albumin 4.4 3.5 Lipase 1966 H 1112 H Urine Color Yellow Urine Appearance Clear Urine pH 6.5 Ur Specific [place] 1.039 H Urine Protein Negative Urine Glucose (UA) Negative Urine Ketones Negative Ur Blood (Man) Negative Urine Nitrate Negative Urine Bilirubin Negative Urine Urobilinogen 1.0 Leukocyte Esterase Rfl Negative Quality VTE Prophylaxis VTE prophylaxis: mechanical ordered
[2025-03-19 14:01] VITALS: BP 140/79; PULSE 92; RESP 18; TEMP 36.4; O2SAT 98
--- NOTE | 2025-03-19 15:02 | WPDGICN ---
Assessment and Plan Assessment and plan (1) Post-ERCP acute pancreatitis: Code(s): K91.89 - Other postprocedural complications and disorders of digestive system; K85.90 - Acute pancreatitis without necrosis or infection, unspecified Status: Acute Assessment and Plan: patient had PD stent and indomethacin, still had pancreatitis on iv fluids, already feeling better advance diet as tolerated and hopefully home tomorrow if pain is better and tolerating diet PD stent will be checked in 3-4 weeks with KUB and if still in place then will be removed with egd (2) Choledocholithiasis: Code(s): K80.50 - Calculus of bile duct without cholangitis or cholecystitis without obstruction Status: Acute Assessment and Plan: removed successfully with recent ERCP (3) Elevated liver enzymes: Code(s): R74.8 - Abnormal levels of other serum enzymes Status: Acute Assessment and Plan: expect to have some elevated lft's after ercp and pancreatitis (4) Abdominal pain: Qualifiers: Abdominal location: left lower quadrant Qualified Code(s): R10.32 - Left lower quadrant pain Code(s): R10.9 - Unspecified abdominal pain Status: Acute (5) Pneumonia: Code(s): J18.9 - Pneumonia, unspecified organism Status: Acute GI Consult Note Consult date/time: 03/19/25 15:02 Reason for consult: post ERCP pancreatitis HPI: Joseph Kimball is a 39 year old male who had recent outpatient ERCP for choledocholithiasis 3 days ago, PD stent was placed and also received indomethacin as strategy to prevent pancreatitis. Bile duct stone removed after balloon sweep, he went home but yesterday with severe upper abdominal pain and nausea, also cough. ED blood work noted leukocytosis at 11.8, BUN of 22, total bili of 1.7, AST of 76, lipase of 1966, UA negative for infection, CT abdomen shows pancreatic duct stent in expected position and normal appearing pancreas, and hemidiaphragm. Pain has improved and already feeling better, tolerating liquid diet. Review of Systems Constitutional: Constitutional: Denies headache(s) and Denies weakness Eyes: Eyes: Denies blurry vision ENT: Reports Normal hearing present, Denies headache(s) and Denies neck pain Cardiovascular: Cardiovascular: Denies chest pain and Denies dyspnea Respiratory: Respiratory: Denies dyspnea Gastrointestinal: Gastrointestinal: Reports abdominal pain and Reports nausea Genitourinary: Genitourinary: Denies dysuria Musculoskeletal: Musculoskeletal: Denies neck pain Integumentary/Breasts: Skin/Breast: Denies dry skin Neurologic: Reports Normal hearing present, Denies headache(s) and Denies weakness Psychiatric: Psychiatric: Denies anxiety Endocrine: Endocrine: Denies change in body appearance [facility] Past Medical History Medical History (Updated 03/19/25 @ 15:05 by Raz Sharpe MD) Post-ERCP acute pancreatitis Cervical disc herniation Cervical myelopathy with cervical radiculopathy Left-sided headache Dyspepsia Colon cancer screening Hx of type A viral hepatitis Epigastric pain Elevated transaminase level HTN (hypertension) GERD (gastroesophageal reflux disease) Surgical History Surgical History Hx of vasectomy Hx of cholecystectomy Hx of appendectomy Family History Family History Father Hypertension Diabetes mellitus Mixed hyperlipidemia Mother Hypothyroidism Mixed hyperlipidemia Sibling No problems noted. Social History Social History Social History: Years smoked: 5 Smoking status: Current every day smoker Tobacco type: cigars Second hand tobacco smoke exposure: No Additional smoking assessment comments: 2-3 a day, pt smokes cigars Alcohol intake: never Substance use: never Substance use type: does not use Do You Feel Safe in your Home?: Yes Lack of Transportation: No Lack of Food: Never True Current Housing: I Have Housing Concerned About Future Housing: No Difficulty Paying Gas/Electric Bills: No Difficulty Paying for Meds: No Currently Unemployed: No Education: High School Diploma/GED Difficulty w/ Childcare or Family Care: No Living arrangements: with family Additional living arrangements comments: Occupation/Education: occupation 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 Gender identity (if verbalized by the patient): Male Sexual Orientation (if Verbalized by the Patient): Straight or Heterosexual Spiritual care concerns: No Meds Home Medications and Allergies Home Medications ?Medication ?Instructions ?Recorded ?Confirmed ?Type losartan 25 mg tablet See Rx Instructions .Route 01/14/22 03/18/25 Rx .COMPLEX #90 tabs nortriptyline 25 mg capsule 25 mg PO QHS #30 caps 01/24/25 03/18/25 Rx omeprazole 40 mg capsule,delayed 40 mg PO DAILY 1 month #30 caps 02/27/25 03/18/25 Rx release Allergies Allergy/AdvReac Type Severity Reaction Status Date / Time hydrocodone Allergy Unknown Jittery/ANXIOUS Verified 03/13/25 15:57 FEELING Vital Signs Vital Signs - 24 hr 03/18/25 15:45 03/18/25 20:46 03/18/25 20:58 Temperature 97.4 F L 97.6 F Pulse Rate 87 80 Respiratory Rate 18 16 Blood Pressure 146/84 H 137/77 Pulse Oximetry 98 96 Oxygen Delivery Room Air 03/19/25 05:09 03/19/25 14:01 Temperature 97.6 F 97.5 F L Pulse Rate 80 92 Respiratory Rate 18 18 Blood Pressure 130/87 140/79 Pulse Oximetry 99 98 Oxygen Delivery Exam Const: General: comfortable and no acute distress HENMT: Face/Nose/Sinus: Normal nares present Eyes: General: appearance normal, both eyes and all related structures Neck: Neck: no JVD Resp: Auscultation: clear to auscultation bilaterally Cardio: Rate: regular rate Rhythm: regular rhythm GI: Inspection: non-distended GI Palp: Yes Soft to palpation and No Tenderness to palpation present (GI) Auscultation: normal bowel sounds Skin: General skin exam: normal color Neuro: General: gait normal Speech: normal speech Extrem: General: normal to inspection Psych: Mental Status: mental status grossly normal Results Labs 03/19/25 04:25 03/19/25 04:25 Labs: Short CBC 03/19/25 Range/Units 04:25 WBC 7.8 (4.5-10.0) K/mm3 Hgb 14.1 (14.0-18.0) g/dL Hct 40.7 L (42.0-52.0) % Plt Count 150 (150-375) k/mm3 BMP 03/19/25 04:25 Sodium 136 L Potassium 4.1 Chloride 103 Carbon Dioxide 28 BUN 18 Creatinine 1.02 Glucose 101 Calcium 8.9 Liver Function 03/19/25 Range/Units 04:25 Total Bilirubin 2.3 H (0.2-1.3) mg/dL AST 41 (17-59) U/L ALT 64 H (6-50) U/L Alkaline Phosphatase 77 (38-126) U/L Albumin 3.5 (3.5-5.1) g/dL
[2025-03-19] MEDS: cefTRIAXone 1 GM in SODIUM CHLORIDE 0.9% IV 50 ML 100 ML IVPB (16:22)
[2025-03-19] MEDS: AZITHROMYCIN IV 500 MG in SODIUM CHLORIDE 0.9% IV 250 ML IVPB (17:05)
[2025-03-19] MEDS: SENNA/DOCUSATE SODIUM TABLET 1 TAB PO (20:52)
[2025-03-19] MEDS: NORTRIPTYLINE HCL 25 MG CAPSULE PO (20:52)
[2025-03-19 21:16] VITALS: BP 147/90; PULSE 84; RESP 18; TEMP 36.1; O2SAT 100
[2025-03-20] MEDS: LACTATED RINGERS 1,000 ML 200 ML IV CONT (02:01)
[2025-03-20] MEDS: KETOROLAC 15 MG/ML VIAL (*BKC) IV PUSH ×2 (02:01→09:24)
[2025-03-20 04:17] VITALS: BP 142/85; PULSE 81; RESP 16; TEMP 36.2; O2SAT 98
[2025-03-20] MEDS: PANTOPRAZOLE 40 MG TABLET PO (09:24)
[2025-03-20] MEDS: LOSARTAN POTASSIUM 25 MG TABLET BY MOUTH (09:24)
[2025-03-20] MEDS: guaiFENesin 12 HR 600 MG TABCR 1200 MG PO (09:24)
--- NOTE | 2025-03-20 12:13 | PM.IMPN ---
Progress Note: A&P Assessment and Plan (1) Pancreatitis: Code(s): K85.90 - Acute pancreatitis without necrosis or infection, unspecified Status: Acute (2) Pneumonia: Code(s): J18.9 - Pneumonia, unspecified organism Status: Acute (3) Leukocytosis: Code(s): D72.829 - Elevated white blood cell count, unspecified Status: Resolved (4) NAFLD (nonalcoholic fatty liver disease): Code(s): K76.0 - Fatty (change of) liver, not elsewhere classified Status: Acute (5) Elevated liver enzymes: Code(s): R74.8 - Abnormal levels of other serum enzymes Status: Acute (6) Constipation: Code(s): K59.00 - Constipation, unspecified Status: Acute (7) Depression: Code(s): F32.A - Depression, unspecified Status: Acute (8) HTN (hypertension): Qualifiers: Hypertension type: primary hypertension Qualified Code(s): I10 - Essential (primary) hypertension Code(s): I10 - Essential (primary) hypertension Status: Acute Plan 39-year-old male past medical history of hypertension, GERD, nonalcoholic fatty liver disease, with bile duct stone status post cholecystectomy with ERCP on 03/16/2025 with stent placement by GI presents the emergency room with abdominal pain. Patient was told the pain did not improve while he was at home to come back into the emergency room for evaluation. Patient states that while he was at home the pain was not decreasing. Any a cough that would irritate the abdominal pain. Patient does admit that there was a small amount vomit this morning almost nothing. Patient has a cough at bedside. He states that it started Thursday night, he states that makes abdominal pain worse. He denies shortness of breath. Patient denies sputum, fever chills. Patient does admit that there was a small amount vomit this morning almost nothing. Lab work in the ED shows leukocytosis at 11.8, BUN of 22, total bili of 1.7, AST of 76, lipase of 1966, UA negative for infection, CT abdomen shows pancreatic duct stent in expected position and normal appearing pancreas, and hemidiaphragm. Chest x-ray showed subsegmental left Aller opacity may represent focus of infection or nodule recommend radiographic follow-up to ensure resolution. Bibasilar scar worsening right hemidiaphragmatic elevation. Repeat chest x-ray with clear lungs. Stable elevation of the right hemidiaphragm. He was diagnosed with Post ERCP pancreatitis. Improving with current management with IV fluids. Leukocytosis resolved. Lipase is trending Downward. Patient was started on a diet which she tolerated. GI was consulted during hospital stay. Pain better has not required any IV pain medication. Possible pneumonia is treated with IV antibiotics with ceftriaxone and azithromycin which will be switched to oral. Subjective Date/time seen: 03/20/25 12:13 Interval history: feeling better. only intermittent pain. no nausea, vomiting. he had bm twice today, Review of Systems Review of Systems: All systems reviewed & are unremarkable except as noted in HPI and below Exam Narrative: General: well appearing, appears stated age HEENT: Atraumatic/Normocephalic Respiratory: CTAB Cardiovascular: RRR, S1 and S2 present without S3, S4,m,r,g,h Abdomen: Soft, non tender, no HSM and negative Rod's sign, BS+x4 Extremities: No cyanosis, clubbing, or edema present. Pulses are palpable 2/2. Active ROM to all four extremities. Neuro: A&Ox4. PERRLA. CN 2-12 intact without any focal deficit. Skin: Warm, dry, and intact, without rash, erythema, or lesion. Psych: Pleasant, Normal affect and cooperative. Objective Data Vital Signs Vital Signs: Vital Signs - 24 hr 03/19/25 14:01 03/19/25 20:44 03/19/25 21:16 Temperature 97.5 F L 97 F L Pulse Rate 92 84 Respiratory Rate 18 18 Blood Pressure 140/79 147/90 H Pulse Oximetry 98 100 Oxygen Delivery Room Air 03/20/25 04:17 03/20/25 08:30 Temperature 97.2 F L Pulse Rate 81 Respiratory Rate 16 Blood Pressure 142/85 H Pulse Oximetry 98 Oxygen Delivery Room Air Intake/Output Intake/Output: Intake & Output 03/17/25 03/18/25 03/19/25 03/20/25 23:59 23:59 23:59 23:59 Intake Total 2124.2 6250 1418 Balance 2124.2 6250 1418 Meds/Results Medications: Active Medications Generic Name Dose Route Start Last Admin Trade Name Freq PRN Reason Stop Dose Admin Acetaminophen 650 mg 03/18/25 14:14 Acetaminophen 325 Mg Tablet PO Q4H PRN Mild Pain (1-3) or Fever Guaifenesin 1,200 mg 03/18/25 21:00 03/20/25 09:24 Guaifenesin 12 Hr 600 Mg Tabcr PO 1,200 mg Q12HR TRAN Administration Lactated Ringer's 1,000 mls @ 200 mls/hr 03/18/25 13:40 03/20/25 02:01 Lr - Lactated Ringers Iv IV CONT 200 mls/hr .Q5H TRAN Administration Ceftriaxone Sodium 1 gm/ 50 mls @ 100 mls/hr 03/18/25 17:00 03/19/25 16:52 Sodium Chloride IVPB Infused Q24H TRAN Infusion Azithromycin 500 mg/ Sodium 250 mls @ 250 mls/hr 03/18/25 18:00 03/19/25 17:05 Chloride IVPB 03/22/25 18:59 250 mls/hr Q24H TRAN Administration Ketorolac Tromethamine 15 mg 03/18/25 14:00 03/20/25 09:24 Ketorolac 15 Mg/Ml Vial (*Bkc) IV PUSH 15 mg Q6H TRAN Administration Losartan Potassium 25 mg 03/19/25 09:00 03/20/25 09:24 Losartan Potassium 25 Mg Tablet BY MOUTH 25 mg DAILY TRAN Administration Morphine Sulfate 2 mg 03/18/25 13:40 Morphine Sulfate (*Crx) 2 Mg/Ml Inj IV PUSH Q3HR PRN Pain Rated 7-10 Morphine Sulfate 2 mg 03/18/25 14:14 Morphine Sulfate (*Crx) 2 Mg/Ml Inj IV PUSH Q2H PRN Pain Rated 7-10 Nortriptyline HCl 25 mg 03/18/25 21:00 03/19/25 20:52 Nortriptyline Hcl 25 Mg Capsule PO 25 mg QHS TRAN Administration Pantoprazole Sodium 40 mg 03/19/25 09:00 03/20/25 09:24 Pantoprazole 40 Mg Tablet PO 40 mg BID TRAN Administration Polyethylene Glycol 17 gm 03/19/25 16:37 03/19/25 17:24 Polyethylene Glycol 3350 17 Gm Powd.Pack PO 17 gm ONCE PRN Administration Constipation Senna/Docusate Sodium 1 tab 03/18/25 21:00 03/19/25 20:52 Senna/Docusate Sodium Tablet PO 1 tab HS TRAN Administration Trimethobenzamide HCl 200 mg 03/18/25 16:29 Trimethobenzamide Hcl 200 Mg/2 Ml Vial IM Q6H PRN Nausea And Vomiting Radiology Results: ITS Impressions Abdomen/Pelvis CT 03/18/25 12:52 IMPRESSION: 1. Pancreatic duct stent in expected position. Pancreas appears normal with no surrounding inflammatory stranding to suggest acute proctitis although this is a clinical diagnosis and when mild can be radiographically occult. No other acute intra-abdominal/pelvic process. 2. Chronic elevation of the right hemidiaphragm with increasing bibasilar atelectasis. Chest X-Ray 03/19/25 06:44 Impression: Clear lungs. Stable elevation right hemidiaphragm.
[2025-03-20 13:15] LABS: Hematocrit 42.7 % (42.0-52.0); Hemoglobin 15.2 g/dL (14.0-18.0); Immature Granulocyte Percent A 0.3 % (0-0.5); Lymphocytes Absolute Auto 1.19 K/mm3 (0.9-3.2); Mean Corpuscular HGB Conc 35.6 g/dl (32-36); Mean Corpuscular Hemoglobin 30.8 pg (26-34); Mean Corpuscular Volume 86.6 fl (80-100); Nucleated Red Blood Cells Absolute Auto 0.000 K/mm3 (0.0-0.012); Nucleated Red Blood Cells Perc 0.0 % (0.0-0.2); Platelet Count Result 179 k/mm3 (150-375); Red Blood Count 4.93 M/mm3 (4.6-6.20); White Blood Count 6.8 K/mm3 (4.5-10.0)
[2025-03-20 13:44] LABS: Alanine Aminotransferase 84 U/L (6-50); Albumin Level 4.0 g/dL (3.5-5.1); Alkaline Phosphatase 81 U/L (38-126); Anion Gap 7 mmol/L (4-12); Aspartate Amino Transferase 47 U/L (17-59); Bilirubin,Total 1.9 mg/dL (0.2-1.3); Blood Urea Nitrogen 17 mg/dL (9-20); Calcium 9.7 mg/dL (8.4-10.2); Carbon Dioxide 27 mmol/L (22-30); Chloride 103 mmol/L (98-107); Estimated CRCL calculation 85 ml/min; Estimated Glomerular Filt Rate > 60; Glucose 131 mg/dL (65-110); Lipase 471 U/L (23-300); Magnesium 1.9 mg/dL (1.6-2.3); Potassium 4.7 mmol/L (3.4-5.0); Sodium 137 mmol/L (137-145); Total Protein 7.1 g/dL (6.3-8.2)
--- NOTE | 2025-03-20 15:25 | P.DS_ITS ---
DS: Admitting Diagnosis Discharge Date 03/20/2025 Admitting Diagnosis Abdominal pain DS: Discharge Diagnosis Discharge Diagnosis (1) Pancreatitis: Code(s): K85.90 - Acute pancreatitis without necrosis or infection, unspecified Status: Acute (2) Pneumonia: Code(s): J18.9 - Pneumonia, unspecified organism Status: Acute (3) Leukocytosis: Code(s): D72.829 - Elevated white blood cell count, unspecified Status: Resolved (4) NAFLD (nonalcoholic fatty liver disease): Code(s): K76.0 - Fatty (change of) liver, not elsewhere classified Status: Acute (5) Elevated liver enzymes: Code(s): R74.8 - Abnormal levels of other serum enzymes Status: Acute (6) Constipation: Code(s): K59.00 - Constipation, unspecified Status: Acute (7) Depression: Code(s): F32.A - Depression, unspecified Status: Acute (8) HTN (hypertension): Qualifiers: Hypertension type: primary hypertension Qualified Code(s): I10 - Essential (primary) hypertension Code(s): I10 - Essential (primary) hypertension Status: Acute DS: Summary Hospital Course Hospital Course: 39-year-old male past medical history of hypertension, GERD, nonalcoholic fatty liver disease, with bile duct stone status post cholecystectomy with ERCP on 03/16/2025 with stent placement by GI presents the emergency room with abdominal pain. Patient was told the pain did not improve while he was at home to come back into the emergency room for evaluation. Patient states that while he was at home the pain was not decreasing. Any a cough that would irritate the abdominal pain. Patient does admit that there was a small amount vomit this morning almost nothing. Patient has a cough at bedside. He states that it started Thursday night, he states that makes abdominal pain worse. He denies shortness of breath. Patient denies sputum, fever chills. Patient does admit that there was a small amount vomit this morning almost nothing. Lab work in the ED shows leukocytosis at 11.8, BUN of 22, total bili of 1.7, AST of 76, lipase of 1966, UA negative for infection, CT abdomen shows pancreatic duct stent in expected position and normal appearing pancreas, and hemidiaphragm. Chest x-ray showed subsegmental left Aller opacity may represent focus of infection or nodule recommend radiographic follow-up to ensure resolution. Bibasilar scar worsening right hemidiaphragmatic elevation. Repeat chest x-ray with clear lungs. Stable elevation of the right hemidiaphragm. He was diagnosed with Post ERCP pancreatitis. Improving with current management with IV fluids. Leukocytosis resolved. Lipase is trending Downward. Patient was started on a diet which she tolerated. GI was consulted during hospital stay. Pain better has not required any IV pain medication. Possible pneumonia is treated with IV antibiotics with ceftriaxone and azithromycin which will be switched to oral. Time Spent with Patient Time attestation: Total time spent providing and/or coordinating discharge services: 35 minutes Exam Narrative: General: well appearing, appears stated age HEENT: Atraumatic/Normocephalic Respiratory: CTAB Cardiovascular: RRR, S1 and S2 present without S3, S4,m,r,g,h Abdomen: Soft, non tender, no HSM and negative Rod's sign, BS+x4 Extremities: No cyanosis, clubbing, or edema present. Pulses are palpable 2/2. Active ROM to all four extremities. Neuro: A&Ox4. PERRLA. CN 2-12 intact without any focal deficit. Skin: Warm, dry, and intact, without rash, erythema, or lesion. Psych: Pleasant, Normal affect and cooperative. DS: Data Data Completed and Pending Labs on day of discharge: Labs from last 24 hours 03/20/25 13:00 WBC 6.8 RBC 4.93 Hgb 15.2 Hct 42.7 MCV 86.6 MCH 30.8 MCHC 35.6 RDW 12.1 Plt Count 179 MPV 10.5 H Immature Gran % (Auto) 0.3 Neut % (Auto) 74.3 H Lymph % (Auto) 17.6 L Liberty % (Auto) 5.3 Eos % (Auto) 2.1 Baso % (Auto) 0.4 Lymph # (Auto) 1.19 [place] # (Auto) 0.4 Eos # (Auto) 0.1 Baso # (Auto) 0.0 Abs Immat Gran (auto) 0.02 Absolute Neuts (auto) 5.0 Absolute Nucleated RBC 0.000 Nucleated RBC % 0.0 Sodium 137 Potassium 4.7 Chloride 103 Carbon Dioxide 27 Anion Gap 7 BUN 17 Creatinine 1.04 Estim Creat Clear Calc 85 Estimated GFR > 60 Glucose 131 H Calcium 9.7 Magnesium 1.9 Total Bilirubin 1.9 H AST 47 ALT 84 H Alkaline Phosphatase 81 Total Protein 7.1 Albumin 4.0 Lipase 471 H Imaging Radiologist's impression: ITS Impressions Abdomen/Pelvis CT 03/18/25 12:52 IMPRESSION: 1. Pancreatic duct stent in expected position. Pancreas appears normal with no surrounding inflammatory stranding to suggest acute proctitis although this is a clinical diagnosis and when mild can be radiographically occult. No other acute intra-abdominal/pelvic process. 2. Chronic elevation of the right hemidiaphragm with increasing bibasilar atelectasis. Chest X-Ray 03/18/25 14:16 IMPRESSION: Subsegmental left alar opacity may represent a focus of infection, hallux, or nodule. Recommend radiographic follow-up to ensure resolution. Bibasilar scar. Worsening right hemidiaphragm elevation, recommend outpatient fluoroscopic sniff test. Chest X-Ray 03/19/25 06:44 Impression: Clear lungs. Stable elevation right hemidiaphragm. Discharge Plan Discharge Attending physician on discharge: Herman Osborne Consulting providers: Raz Sharpe; Jessa La Discharging Clinician: Herman Osborne Anticipated Discharge Date/Time: 03/20/25 15:26 Patient Disposition: Home Activity: as tolerated Diet: as tolerated and low fat Patient Instructions: Antibiotic Form Patient Language: Palestinian Stand Alone Forms: General Discharge Information Follow-up/Referrals: Salome,DAMIEN Miller [Primary Care Provider] - 2 Weeks (Chest x-ray right hemidiaphragm recommending fluoroscopic sniff test outpatient) Raz Sharpe MD [Physician] - 2 Weeks Discharge Medications: New amoxicillin-pot clavulanate 875-125 mg tablet 1 tablet PO Q12H Qty: 6 0RF azithromycin 500 mg tablet 500 mg PO DAILY 3 Days Qty: 3 0RF Continued losartan 25 mg tablet See Rx Instructions .ROUTE .COMPLEX Qty: 90 1RF Dose Instruction: Take 1 tablet by mouth once daily Rx Instructions: Take 1 tablet by mouth once daily nortriptyline 25 mg capsule 25 mg PO QHS Qty: 30 3RF omeprazole 40 mg capsule,delayed release(DR/EC) 40 mg PO DAILY 30 Days Qty: 30 5RF Date of admission: 03/18/25 14:14 Primary Care Provider: SalomeMarlen Admitting Provider: Camilo Traore Attending physician on admission: Camilo Traore Condition: Stable
== END 2025-03-20 16:22 | disposition home or self-care (01) | DRG 438 ==
LOC: ANHED 14:05 → ANH2MED 15:13
PROVIDERS: Nurse Practitioner Gerontology; Admitting Provider General Practice; Emergency Provider Family Medicine; PCP Physician Assistant; Visit Provider Internal Medicine
DX: K85.90 Acute pancreatitis without necrosis or infection, unspecified (principal); J18.9 Pneumonia, unspecified organism; D72.829 Elevated white blood cell count, unspecified; F17.290 Nicotine dependence, other tobacco product, uncomplicated; I10 Essential (primary) hypertension; K21.9 Gastro-esophageal reflux disease without esophagitis; K59.00 Constipation, unspecified; K76.0 Fatty (change of) liver, not elsewhere classified; K80.50 Calculus of bile duct without cholangitis or cholecystitis without obstruction; Z90.49 Acquired absence of other specified parts of digestive tract; Z96.89 Presence of other specified functional implants
CPT/HCPCS: 36415; 71045; 74177; 80053; 81003; 83690; 83735; 85025; 93005; 96374; 96375; 99285; A9270; J0456; J0696; J1885; J2270; J2405; J7030; J7050; J7120; Q9967

== ENCOUNTER 2025-04-11 13:47 | Outpatient (CLI) | payer BC, SELFPAY ==
--- NOTE | ~2025-04-11 | XR_ITS ---
EXAMINATION: XR abdomen/kub 1V, 04/11/2025 14:00 CDT HISTORY: s/p ercp with Pancreatic stent in place COMPARISON: No comparisons available. Technique: 3 view. Findings: Bowel gas pattern unremarkable. No obstruction. Moderate fecal content. Probable pancreatic stent noted. No free air. No abnormal calcifications No acute osseous abnormality. Impression: 1. No acute abnormality. Reviewed, dictated and finalized at location A. Impression: 1. No acute abnormality.
--- NOTE | ~2025-04-11 | XR_ITS ---
EXAMINATION: SNIFF TEST W/O CXR +FLUORO<1HR DATE: 07/02/11 11:13:00 INDICATION: Disorder of the diaphragm TECHNIQUE: PA and lateral views of the chest were obtained. Fluoroscopy was utilized for evaluation of diaphragmatic excursion with rapid inspiration. Fluoroscopy exposure time was 0.1 minutes. A total of 64 fluoroscopic images were recorded. Total DAP was 0.777 Gycm^2. COMPARISON: 03/19/2025 FINDINGS: Again seen is elevation of the right hemidiaphragm. There is paradoxical cephalad motion of the elevated right hemidiaphragm with rapid inspiration consistent with phrenic nerve palsy. Minimal linear discoid atelectasis at the left costophrenic angle. No other airspace opacities, pulmonary edema, pleural effusion or pneumothorax. Heart size is normal. Cholecystectomy clips in the right upper quadrant. IMPRESSION: 1. Elevated right hemidiaphragm with paradoxical motion with rapid inspiration consistent with right phrenic nerve palsy. 2. Minimal streaky atelectasis at the lateral left lung base. No other acute cardiopulmonary disease. Reviewed, dictated and finalized at location A. IMPRESSION: 1. Elevated right hemidiaphragm with paradoxical motion with rapid inspiration consistent with right phrenic nerve palsy. 2. Minimal streaky atelectasis at the lateral left lung base. No other acute ca rdiopulmonary disease.
--- OUTSIDE RECORDS SUMMARY | 2025-04-11 15:21 | XMS_ITS | Clinical Summary ---
Author Organization [facility] Address [address] [place] [place] [address] Care Team Providers Care Duty Officer Name Role Phone Unavailable Primary Care Provider Unavailabl e Source Comments [facility],non-owned Affiliates and Associated Physician Practices is amultiple site organization consisting of ambulatory clinics and hospital sitesin [place], [place], [place] and [place]. This disclosure is being madepursuant to the Care Everywhere program and may not contain all information available regarding this patient. 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 SELF PAY NO INSURANCE Member Subscriber Plan / Payer (Ef fective for All Dates) Name:Meenakshi JigarJoseph messer I Member ID:Not on file Relation to Subscriber:Not on file Name:MEENAKSHI GUERREROIREZJOSEPH Subscriber ID:Not on file (Home) Address: [address] [address] Payer ID:Not on file Group ID:Not on file Type:Self Pay Address: [place], [place] [facility] * Guarantor: JOSEPH CASTREJON Account Type Relation to Patient Date of Phone Billing Address Personal/Family Spouse
--- OUTSIDE RECORDS SUMMARY | 2025-04-11 15:21 | XMS_ITS | Clinical Summary ---
Author Organization [facility] Address [address] [place] [address] Care Team Providers Care Excel Analyst Name Role Phone Marlen Mcmahon Primary Care [...] on file Legal Sex Male 8:08 PM [employer] Gender Identity Not on file Sexual Orientation Not on file Last Filed Vital Signs Vital Sign Reading Time Taken Comments Blood Pressure 131/83 09/28/2024 7:30 PM [employer]IN[employer] Pulse 76 09/28/2024 7:30 PM [facility] Temperature 36.7 C (98 F) 09/28/2024 4:00 PM [facility]IN[employer] Respiratory Rate 16 09/28/2024 7:30 PM [facility]INAT[facility]X Oxygen Saturation 97% 09/28/2024 7:30 PM [facility]IN[employer] Inhaled Oxygen Concentration - - Weight 87.1 kg (192 lb) 09/28/2024 1:34 PM DOMINATRIX Height 167.6 cm (5' 6) 09/28/2024 1:34 PM DOMINATRIX Body Mass Index 30.99 09/28/2024 1:34 PM DOMINATRIX Plan of Treatment Health Maintenance Due Date [...] patient's age to complete this topic Insurance [employer] MD [employer] MD Care Teams Excel Analyst Relationship Specialty Start Date End Date Marlen Mcmahon PA PCP - General Physician Head Of Transport Logistics 09/28/24
--- OUTSIDE RECORDS SUMMARY | 2025-04-11 15:21 | XMS_ITS | Clinical Summary ---
Author Organization [facility] Care Team Providers Care Rn [facility] Name Role Phone Unavailable Primary Care Provider [...]
== END 2025-04-11 13:48 | disposition home or self-care (01) ==
PROVIDERS: PCP Physician Assistant; Visit Provider Physician Assistant
DX: J98.6 Disorders of diaphragm (principal); K80.50 Calculus of bile duct without cholangitis or cholecystitis without obstruction; R91.8 Other nonspecific abnormal finding of lung field
CPT/HCPCS: 71046; 74018; 76000

== ENCOUNTER 2025-04-14 03:00 | Day surgery (SDC) | payer BC, SELFPAY ==
[2025-04-13 11:45] VITALS: BMI 30.9
--- OUTSIDE RECORDS SUMMARY | 2025-04-14 03:03 | XMS_ITS | Clinical Summary ---
Author Organization [facility] Address [address] [place] [address] Care Team Providers Care Steam Fitter Supervisor Maintenance Name Role Phone Unavailable Primary Care Provider Unavailabl e Source Comments [facility],non-owned Affiliates and Associated Physician Practices is amultiple site organization consisting of ambulatory clinics and hospital sitesin [place], [place], [place] and [place]. This disclosure is being madepursuant to the Care Everywhere program and may not contain all information available regarding this patient. 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 SELF PAY NO INSURANCE Member Subscriber Plan / Payer (Ef fective for All Dates) Name:Meenakshi JigarJoseph messer I Member ID:Not on file Relation to Subscriber:Not on file Name:MEENAKSHI GUERREROIREZJOSEPH Subscriber ID:Not on file (Home) Address: [address], [place] [address] Payer ID:Not on file Group ID:Not on file Type:Self Pay Address: [place], [place] [facility]M [facility] * Guarantor: JOSEPH CASTREJON Account Type Relation to Patient Date of Phone Billing Address Personal/Family Spouse
--- OUTSIDE RECORDS SUMMARY | 2025-04-14 03:03 | XMS_ITS | Clinical Summary ---
Author Organization [facility] Address [address] [place] [address] Care Team Providers Care Paper Tester Name Role Phone Marlen Mcmahon Primary Care [...] on file Legal Sex Male 8:08 PM WELDER APPRENTICE GAS Gender Identity Not on file Sexual Orientation Not on file Last Filed Vital Signs Vital Sign Reading Time Taken Comments Blood Pressure 131/83 09/28/2024 7:30 PM WELDER APPRENTICE GAS Pulse 76 09/28/2024 7:30 PM WELDER APPRENTICE GAS Temperature 36.7 C (98 F) 09/28/2024 4:00 PM WELDER APPRENTICE GAS Respiratory Rate 16 09/28/2024 7:30 PM WELDER APPRENTICE GAS Oxygen Saturation 97% 09/28/2024 7:30 PM WELDER APPRENTICE GAS Inhaled Oxygen Concentration - - Weight 87.1 kg (192 lb) 09/28/2024 1:34 PM WELDER APPRENTICE GAS Height 167.6 cm (5' 6) 09/28/2024 1:34 PM WELDER APPRENTICE GAS Body Mass Index 30.99 09/28/2024 1:34 PM WELDER APPRENTICE GAS Plan of Treatment Health Maintenance Due Date [...] patient's age to complete this topic [place] [employer] [place] [employer] [place] Care Teams Paper Tester Relationship Specialty Start Date End Date Marlen Mcmahon PA PCP - General Physician Inhalation Therapy Aides Teacher 09/28/24
--- OUTSIDE RECORDS SUMMARY | 2025-04-14 03:03 | XMS_ITS | Clinical Summary ---
Author Organization [facility] Care Team Providers Care Twist Packer Name Role Phone Unavailable Primary Care Provider [...]
[2025-04-14 12:27] VITALS: BP 141/92; PULSE 91; TEMP 36.5; O2SAT 97; BMI 30.1
[2025-04-14] MEDS: LACTATED RINGERS 1,000 ML 150 ML IV CONT (12:34)
--- NOTE | 2025-04-14 12:56 | WPDANESEPPF ---
Anes - Initial Pre Proc Eval Procedure: Operation Date: 04/14/25 14:45 Proposed Procedures p Esophagogastroduodenoscopy EGD - Raz Sharpe MD Date/Time: 04/14/25 12:56 Surgeon: Raz Sharpe MD Pre Op Diagnosis: Presence of other specified functional implants Patient Data Age: 40 Gender: M Height: 1.7 m Weight: 87.3 kg Last Vital Signs Temp 36.5 C 04/14/25 12:27 Pulse 91 04/14/25 12:27 BP 141/92 H 04/14/25 12:27 Pulse Ox 97 04/14/25 12:27 O2 Del Method Room Air 04/14/25 12:27 Allergies Allergy/AdvReac Type Severity Reaction Status Date / Time hydrocodone Allergy Unknown Jittery/ANXIOUS Verified 04/14/25 12:24 FEELING Home Medications ?Medication ?Instructions ?Recorded ?Confirmed ?Type losartan 25 mg tablet See Rx Instructions .Route 01/14/22 04/14/25 Rx .COMPLEX #90 tabs nortriptyline 25 mg capsule 25 mg PO QHS #30 caps 01/24/25 04/14/25 Rx omeprazole 40 mg capsule,delayed 40 mg PO DAILY 1 month #30 caps 02/27/25 04/14/25 Rx release Patient hx anesthesia problems: none Family hx anesthesia problems: none Results Review: All pre-operative results and documents have been reviewed as part of the pre-operative evaluation. [facility] Past Medical History Medical History Presence of pancreatic duct stent Post-ERCP acute pancreatitis Cervical disc herniation Cervical myelopathy with cervical radiculopathy Left-sided headache Dyspepsia Colon cancer screening Hx of type A viral hepatitis Epigastric pain Elevated transaminase level HTN (hypertension) GERD (gastroesophageal reflux disease) Surgical History Surgical History Hx of vasectomy Hx of cholecystectomy Hx of appendectomy Family History Family History Father Hypertension Diabetes mellitus Mixed hyperlipidemia Mother Hypothyroidism Mixed hyperlipidemia Sibling No problems noted. Social History Social History Social History: Years smoked: 5 Smoking status: Current every day smoker Tobacco type: cigars Second hand tobacco smoke exposure: No Additional smoking assessment comments: 2-3 a day, pt smokes cigars Alcohol intake: never Substance use: never Substance use type: does not use Do You Feel Safe in your Home?: Yes Lack of Transportation: No Lack of Food: Never True Current Housing: I Have Housing Concerned About Future Housing: No Difficulty Paying Gas/Electric Bills: No Difficulty Paying for Meds: No Currently Unemployed: No Education: High School Diploma/GED Difficulty w/ Childcare or Family Care: No Living arrangements: with family Additional living arrangements comments: Occupation/Education: occupation 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 Gender identity (if verbalized by the patient): Male Sexual Orientation (if Verbalized by the Patient): Straight or Heterosexual Spiritual care concerns: No Anes - Eval Final PreProcedure Day of Procedure 04/14/25 12:56 Patient weight: obese Heart: regular rate and rhythm Lungs: clear to auscultation Airway: Mallampati scale class III Neurological: alert and oriented Last oral intake: >/= 8 hours ASA classification: II Emergent: no Anesthetic plan: proceed Anesthesia type and monitoring: general GIVS and standard monitoring Results Review: All pre-operative results and documents have been reviewed as part of the pre-operative evaluation. Informed Consent: The patient's anesthetic plan and its attendant risks and benefits were discussed with the patient/family/POA. Questions were solicited and answers provided to the satisfaction of the patient/family/POA.
--- NOTE | 2025-04-14 12:58 | P.HP_ITS ---
History of Present Illness History of Present Illness Consent: Risks, benefits, and alternatives have been discussed and questions answered. Patient agrees to proceed with procedure. Chief complaint: Presence of other specified functional implants Narrative: Joseph Kimball is a 40 year old male with choledocholithiasis, underwent ercp with removal stones but also left PD stent (recent XR can not exclude that stent is still there), overall better with no pain but some bloating. Review of Systems Review of Systems: All systems reviewed & are unremarkable except as noted in HPI and below PMFSH Past Medical History Medical History Presence of pancreatic duct stent Post-ERCP acute pancreatitis Cervical disc herniation Cervical myelopathy with cervical radiculopathy Left-sided headache Dyspepsia Colon cancer screening Hx of type A viral hepatitis Epigastric pain Elevated transaminase level HTN (hypertension) GERD (gastroesophageal reflux disease) Surgical History Surgical History Hx of vasectomy Hx of cholecystectomy Hx of appendectomy Family History Family History Father Hypertension Diabetes mellitus Mixed hyperlipidemia Mother Hypothyroidism Mixed hyperlipidemia Sibling No problems noted. Social History Social History Social History: Years smoked: 5 Smoking status: Current every day smoker Tobacco type: cigars Second hand tobacco smoke exposure: No Additional smoking assessment comments: 2-3 a day, pt smokes cigars Alcohol intake: never Substance use: never Substance use type: does not use Do You Feel Safe in your Home?: Yes Lack of Transportation: No Lack of Food: Never True Current Housing: I Have Housing Concerned About Future Housing: No Difficulty Paying Gas/Electric Bills: No Difficulty Paying for Meds: No Currently Unemployed: No Education: High School Diploma/GED Difficulty w/ Childcare or Family Care: No Living arrangements: with family Additional living arrangements comments: Occupation/Education: occupation 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 Gender identity (if verbalized by the patient): Male Sexual Orientation (if Verbalized by the Patient): Straight or Heterosexual Spiritual care concerns: No Meds Home Medications and Allergies Home Medications ?Medication ?Instructions ?Recorded ?Confirmed ?Type losartan 25 mg tablet See Rx Instructions .Route 0 01/14/22 04/14/25 Rx .COMPLEX #90 tabs nortriptyline 25 mg capsule 25 mg PO QHS #30 caps 01/0204/14/25 Rx omeprazole 40 mg capsule,delayed 40 mg PO DAILY 1 maxine h #30 caps 02/27/25 04/14/25 Rx release Allergies Allergy/AdvReac Type Severity Reaction Status Date / Time hydrocodone Allergy Unknown Jittery/ANXIOUS Verified 04/14/25 12:24 FEELING Vital Signs Vital Signs - 24 hr 04/14/25 12:27 Temperature 97.7 F Pulse Rate 91 Blood Pressure 141/92 H Pulse Oximetry 97 Oxygen Delivery Room Air Exam Const: General: comfortable and no acute distress HENMT: Face/Nose/Sinus: Normal nares present Eyes: General: appearance normal, both eyes and all related structures Neck: Neck: no JVD Resp: Auscultation: clear to auscultation bilaterally Cardio: Rate: regular rate Rhythm: regular rhythm GI: Inspection: non-distended GI Palp: Yes Soft to palpation Skin: General skin exam: normal color Neuro: Speech: normal speech Extrem: General: normal to inspection Psych: Mental Status: mental status grossly normal Assessment and Plan Assessment and plan (1) Presence of pancreatic duct stent: Code(s): Z96.89 - Presence of other specified functional implants Status: Acute Assessment and Plan: egd to assess if stent still there and remove
--- NOTE | 2025-04-14 13:05 | S_PTH ---
PATIENT: Joseph Cerna I LOC: [facility] Mary#:[id number] AGE/SX: 40/M ROOM: RE04/14/[address]: Raz Sharpe MD : 1985 BED: DIS: 04/14/2025 SPEC #: [id number] RECD: 04/14/25 14:17 STATUS: BAHMAN MAE #: [id number] SARAH: 04/14/25 13:[address]: Raz Sharpe DEPT: [facility] Surgical RECD BY: Joanne Camacho ENTERED: 04/14/25 14:18 SP TYPE: Surgical OTHR DR: Marlen Mcmahon, PA Tissues: A - Gastric Biopsy B - Small Bowel Bx Procedures: Hematoxylin and Eosin Stain Gross and Microscopic Level 4
[2025-04-14 13:08] VITALS: BP 116/79; PULSE 96; RESP 17; O2SAT 94
[2025-04-14 13:18] VITALS: BP 117/76; PULSE 90; RESP 16; O2SAT 93
[2025-04-14 13:28] VITALS: BP 112/76; PULSE 85; RESP 16; O2SAT 95
== END 2025-04-14 13:33 | disposition home or self-care (01) ==
PROVIDERS: PCP Physician Assistant; Referring Provider Internal Medicine Gastroenterology; Visit Provider Internal Medicine Gastroenterology
PROC: 0DJ08ZZ Inspection of Upper Intestinal Tract, Via Natural or Artificial Opening Endoscopic (ICD-10-PCS; CPT 43239; principal; 2025-04-14 14:45)
DX: Z46.59 Encounter for fitting and adjustment of other gastrointestinal appliance and device (principal); K29.50 Unspecified chronic gastritis without bleeding; I10 Essential (primary) hypertension; K21.9 Gastro-esophageal reflux disease without esophagitis; M50.20 Other cervical disc displacement, unspecified cervical region; E66.9 Obesity, unspecified; Z68.30 Body mass index [BMI] 30.0-30.9, adult; F17.290 Nicotine dependence, other tobacco product, uncomplicated; Z98.890 Other specified postprocedural states; Z90.49 Acquired absence of other specified parts of digestive tract; Z96.89 Presence of other specified functional implants
CPT/HCPCS: 43239; 43247; 88305; J7120

== ENCOUNTER 2025-07-21 18:36 | Emergency (ER) | payer BC, SELFPAY ==
[2025-07-21] VITALS (14 sets, daily range): BP systolic 127–139; BP diastolic 84–96; PULSE 67–95; RESP 13–22; TEMP 36.7–36.8; O2SAT 95–99
--- NOTE | ~2025-07-21 | CT_ITS ---
CT abdomen pelvis w con INDICATION:RUQ pain, hx stents and stones . COMPARISON: None. TECHNIQUE: Axial images of the abdomen and pelvis were obtained following infusion of 100 mL Isovue 300. Dose optimization technique was utilized. FINDINGS: The lung bases are clear. Enlarged Right hilar lymph node measures 1.8 x 2.7 cm. Fatty infiltration of the liver is noted. No intrahepatic mass or ductal dilatation is evident. The patient has had a cholecystectomy. The pancreas and spleen are normal in appearance. The adrenal glands are symmetric in size. The kidneys demonstrate symmetric uptake and excretion of contrast. No cystic mass is evident. There is no solid mass. There is no hydronephrosis. The stomach and bowel loops are unremarkable. The bladder and rectum are normal. No free intraperitoneal fluid or air is evident. There is no significant retroperitoneal lymphadenopathy. The aorta, visceral vessels and renal arteries demonstrate normal caliber and patency. The lower thoracic and lumbar vertebrae are in normal alignment. IMPRESSION: No acute abnormality is noted in the abdomen and pelvis. Right hilar lymphadenopathy measuring 1.8 x 2.7 cm. Hepatic steatosis. All CT scans at this facility are performed using low dose modulation techniques as appropriate to perform exam including the following: automated exposure control; use of iterative reconstruction technique; adjustment of the mA and/or kV according to patient size (this includes techniques or standardized protocols for targeted exams where dose is matched to indication/reason for exam). Reviewed, dictated and finalized at location S. TRUCTION EQUIPMENT TECHNICIAN IMPRESSION: No acute abnormality is noted in the abdomen and pelvis. Right hilar lymphadenopathy measuring 1.8 x 2.7 cm. Hepatic steatosis. All CT scans at this facility are performed using low dose modulation techniqu es as appropriate to perform exam including the following: automated exposure c ontrol; use of iterative reconstruction technique; adjustment of the mA and/or kV according to patient size (this includes techniques or standardized protocol s for targeted exams where dose is matched to indication/reason for exam).
--- OUTSIDE RECORDS SUMMARY | 2025-07-21 18:39 | XMS_ITS | Clinical Summary ---
Author Organization [facility] Address [address] [place] [address] Care Team Providers Care Hydroelectric Production Manager Name Role Phone Unavailable Primary Care Provider Unavailabl e Source Comments [facility],non-owned Affiliates and Associated Physician Practices is amultiple site organization consisting of ambulatory clinics and hospital sitesin [place], [place], [place] and [place]. This disclosure is being madepursuant to the Care Everywhere program and may not contain all information available regarding this patient. 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 SELF PAY NO INSURANCE Member Subscriber Plan / Payer (Ef fective for All Dates) Name:Meenakshi JigarJoseph messer I Member ID:Not on file Relation to Subscriber:Not on file Name:MEENAKSHI GUERREROIREZJOSEPH Subscriber ID:Not on file (Home) Address: [address], [place] [address] Payer ID:Not on file Group ID:Not on file Type:Self Pay Address: [place], [place] [facility] * Guarantor: JOSEPH CASTREJON Account Type Relation to Patient Date of Phone Billing Address Personal/Family Spouse
--- OUTSIDE RECORDS SUMMARY | 2025-07-21 18:39 | XMS_ITS | Data Portability ---
Author Organization [facility] [place] Address [address] [place] [address] Care Team Providers Care Enterprise Business Architect Name Role Phone WILLIAN DESIR Primary Care Provider Assessment Encounter Date Assessment Date Assessment LastModified by Organization Details LastModified Time 08/25/2024 08/25/2024 called patient 08/29/24 and states he had more pain and is in [facility] right now getting CT scan. Not available 08/29/2024 10:49:30 Plan of Treatment Reminders Order Date Submit Date Provider Last Modified By Organization Details Last Modified Time Details Appointments None recorded. Lab CBC w/ auto diff 2024 025 BALDWIN RODOLFO, [address] [place] [address], [address] [address], [place], [address], 11:16:31 HbA1c (hemoglobi n A1c), blood 2024 025 BALDWIN LABROBERTO, [address] [place] [address], [facility] [address], [place], [address], 5 11:16:31 lipid panel, serum 2024 025 BALDWIN RODOLFO, [address] [place] [address], [address] [address], [place], [address], 5 11:16:29 vitamin D, 25-hydroxy , total, serum 2024 025 BALDWIN RODOLFO, [address] [place] [address], [address], [place], [address], 5 11:16:32 TSH + free T4, serum 2024 [facility], [address], [address], [place], [address], 11:16:29 CMP, serum or plasma 2024 [email or web address] [facility], [address], [address], [place], [address], 17:18:36 vitamin B12 + folate, serum or blood 2024 [facility], [address], [address], [place], [address], 11:16:30 CMP, serum or plasma 2024 025 [facility], [address], [address], [place], [address], 5 11:16:28 Referral dermatolog ist referral - Multiple skin tags on eye/ear 2024 [email or web address] Mickie Eisenberg MD (Dermatology) , [address] [facility] [address], [address], [place], [address], 08:21:43 Procedures None recorded. Surgeries None recorded. Imaging XR, knee, 3 view - right knee pain/worse with weight bearing 2024 025 [facility] (Imaging), [address] [place] [address] [address], [place], [address], 5 10:44:04 XR, chest, w/ fluoroscop y [address] (Imaging), [address] [facility] [address], [place], [address], 5 15:17:20 MRI, abdomen + pelvis, w/wo contrast [address] (Imaging), [address] [facility] [address], [place], [address], 08:17:14 Medication Orders hydrocorti sone acetate 25 mg rectal suppositor y 2024 [facility], [address] [place] [address], [address], 05:02:34 Preparatio n H Rapid Relief-Lid ocaine 5 %-0.25 %-14.4 %-15 % top cream 2024 025 [facility], [address] [place] [address], [address], 17:06:59 nortriptyl ine 10 mg capsule 2024 025 [facility], [facility] [place], [address], 5 16:55:49 nortriptyl ine 10 mg capsule [email or web address] [place] [address] Pharmacy 361, [address] [place] [address], [address], 16:53:21 Patient TargetsNo targets recorded. Patient Instructions Encounter Date Encounter Id Patient Instructions Last Modified By Organization Details Last Modified Time 08/25/2024 [id number] A healthy lifestyle: care instructions Not available 08/29/2024 10:50:35 10/13/2024 [id number] A healthy lifestyle: care instructions Not available 10/17/2024 15:13:04 06/12/2025 [id number] influenza (flu) vaccine: care instructions [email or web address] Not available 06/12/2025 17:06:49 A healthy lifestyle: care instructions [email or web address] Not available 06/12/2025 21:14:12 Quitting Tobacco: Care Instructions [email or web address] Not available 06/12/2025 21:14:12 The patient was counseled regarding the appropriate use of alcohol, screening procedures and recommended schedule for colonoscopy, psa, cholesterol, thyroid and diabetes screening, prevention of dental and periodontal disease, diet, regular sustained exercise for at least 30 minutes 3-4 times per week, prostate cancer screening, regular use of seat belts. Recommend dilated eye exam and glaucoma screening every 2 years or as indicated by ophthalmology [email or web address] Not available 06/12/2025 21:11:46 Administer influenza vaccination today. Ensure follow-up with pulmonology in September for incidental lung finding; request summary of any imaging or prior reports. [email or web address] Not available 06/12/2025 21:11:59 Reason for Referral Geriatric Physical Therapist Referral for M ultiple skin tags Multiple skin tags on eye/ear Referring Physician: Tyra Mcghee, Internal Medicine, Encounter Date: 06/12/2025 Results Created Date Observation Date Name Description Value Unit Range Abnormal Flag Note LastModifiedBy Organization Detail LastModifiedTime 06/12/2006/14/2025 CMP14 glucose 92 mg/dL 70-99 Not Availabl e [facility] ([facility]) [address] [facility], [place], [address], 06/14/2025 11:16:28 06/12/2006/14/2025 CMP14 BUN 22 mg/dL 6-24 Not Available [facility] ([facility]) [address] [facility], [place], [address], 06/14/2025 11:16:28 06/12/2006/14/2025 CMP14 creatinine 1.09 mg/dL 0.76-1 .27 Not Available [facility] ([facility]) [address] [place], [address], 06/14/2025 11:16:28 06/12/2027 0606/14/2025 CMP14 eGFR 87 mL/mi n/1.7 3 >59 Not Available [facility] ([facility]) [address] [facility] [place], [address], 06/14/2025 11:16:28 06/12/20 25 06/14/2025 CMP14 BUN/creatini ne ratio 20 9-20 Not Available [facility] ([facility]) [address] [facility] [place], [address], 06/14/2025 11:16:28 06/12/20 25 06/14/2025 CMP14 sodium 140 mmol/ L 134-14 4 Not Available [facility] ([facility]) [address] [facility] [place], [address], 06/14/2025 11:16:28 06/12/20 25 06/14/2025 CMP14 potassium 4.0 mmol/ L 3.5-5. 2 Not Available [facility] ([facility]) [address] [facility] [place], [address], 06/14/2025 11:16:28 06/12/20 25 06/14/2025 CMP14 chloride 103 mmol/ L 96-106 Not Available [facility] ([facility]) [address] [facility] [place], [address], 06/14/2025 11:16:28 06/12/20 25 06/14/2025 CMP14 carbon dioxide, total 19 mmol/ L 20-29 below low normal Not Available [facility] ([facility]) [address] [facility] [place], [address], 06/14/2025 11:16:28 06/12/20 25 06/14/2025 CMP14 calcium 9.6 mg/dL 8.7-10 .2 Not Available [facility] ([facility]) [address] [facility] [place], [address], 06/14/2025 11:16:28 06/12/20 25 06/14/2025 CMP14 protein, total 7.1 g/dL 6.0-8. 5 Not Available [facility] ([facility]) [address] [place], [address], 06/14/2025 11:16:28 06/12/20 25 06/14/2025 CMP14 albumin 4.6 g/dL 4.1-5. 1 Not Available [facility] ([facility]) [address] [place], [address], 06/14/2025 11:16:28 06/12/2006/14/2025 CMP14 globulin, total 2.5 g/dL 1.5-4. 5 Not Available [facility] ([facility]) [address] [place], [address], 06/14/2025 11:16:28 06/12/2006/14/2025 CMP14 bilirubin, total 0.7 mg/dL 0.0-1. 2 Not Available [facility] ([facility]) [address] [place], [address], 06/14/2025 11:16:28 06/12/20 25 06/14/2025 CMP14 alkaline phosphatase 100 IU/L 47-123 Not Available [facility] ([facility]) [address] [place], [address], 06/14/2025 11:16:28 06/12/2006/14/2025 CMP14 AST (SGOT) 32 IU/L 0-40 Not Avail able [facility] ([facility]) [address] [facility] [place], [address], 06/14/2025 11:16:28 06/12/2006/14/2025 CMP14 ALT (SGPT) 65 IU/L 0-44 above high normal Not Available [facility] ([facility]) [address] [facility] [place], [address], 06/14/2025 11:16:28 06/12/20 25 06/14/2025 TSH+F REE T4 TSH 1.260 uIU/m L 0.450- 4.500 Not Available [facility] ([facility]) [address] [place], [address], 06/14/2025 11:16:29 06/12/20 25 06/14/2025 TSH+F REE T4 T4,free(dire ct) 1.19 NG/dL 0.82-1 .77 Not Available [facility] ([facility]) [address] [place], [address], 06/14/2025 11:16:29 06/12/20 25 06/14/2025 LIPID PANEL cholesterol, total 124 mg/dL 100-19 9 Not Available [facility] ([facility]) [address] [place], [address], 06/14/2025 11:16:29 06/12/20 25 06/14/2025 LIPID PANEL triglyceride s 250 mg/dL 0-149 above high normal Not Available [facility] ([facility]) [address] [place], [address], 06/14/2025 11:16:29 06/12/20 25 06/14/2025 LIPID PANEL HDL cholesterol 31 mg/dL >39 below low normal Not Available [facility] ([facility]) [address] [place], [address], 06/14/2025 11:16:29 06/12/20 25 06/14/2025 LIPID PANEL VLDL cholesterol katie 40 mg/dL 5-40 Not Available [facility] ([facility]) [address] [place], [address], 06/14/2025 11:16:29 06/12/20 25 06/14/2025 LIPID PANEL LDL chol calc ([facility]) 53 mg/dL 0-99 Not Available [facility] ([facility]) [address] [facility], [place], [address], 06/14/2025 11:16:29 06/12/20 25 06/14/2025 VITAM IN B12+F OLATE vitamin B12 489 pg/mL 232-12 45 Not Available [facility] ([facility]) [address] [facility], [place], [address], 06/14/2025 11:16:30 06/12/20 25 06/14/2025 VITAM IN B12+F OLATE folate (folic acid), serum 5.0 NG/mL >3.0 A serum folat e zenon ntrat ion of less than 3.1 ng/mL is consi dered to repre sent clini katie defic iency . Not Available [facility] ([facility]) [address] [facility], [place], [address], 06/14/2025 11:16:30 06/12/2006/14/2025 HEMOG LOBIN A1C hemoglobin A1C 5.3 % 4.8-5. 6 Predi abete s: 5.7 - 6.4 Diabe delfin: >6.4 Glyce meena contr ol for adult s with diabe delfin: <7.0 Not Available [facility] ([facility]) [address] [facility], [place], [address], 06/14/2025 11:16:30 06/12/2006/14/2025 CBC WITH DIFFE RENTI AL/PL ATELE T WBC 8.4 x10e3 /uL 3.4-10 .8 Not Available [facility] ([facility]) [address] [facility], [place], [address], 06/14/2025 11:16:31 06/12/20 25 06/14/2025 CBC WITH DIFFE RENTI AL/PL ATELE T RBC 5.13 x10e6 /uL 4.14-5 .80 Not Available [facility] ([facility]) [address] [facility], [place], [address], 06/14/2025 11:16:31 06/12/20 25 06/14/2025 CBC WITH DIFFE RENTI AL/PL ATELE T hemoglobin 15.7 g/dL 13.0-1 7.7 Not Available [facility] ([facility]) [address] [facility], [place], [address], 06/14/2025 11:16:31 06/12/20 25 06/14/2025 CBC WITH DIFFE RENTI AL/PL ATELE T hematocrit 46.7 % 37.5-5 1.0 Not Available [facility] ([facility]) [address] [place], [address], 06/14/2025 11:16:31 06/12/20 25 06/14/2025 CBC WITH DIFFE RENTI AL/PL ATELE T MCV 91 fL 79-97 Not Available [facility] ([facility]) [address] [facility], [place], [address], 06/14/2025 11:16:31 06/12/20 25 06/14/2025 CBC WITH DIFFE RENTI AL/PL ATELE T MCH 30.6 pg 26.6-3 3.0 Not Available [facility] ([facility]) [address] [place], [address], 06/14/2025 11:16:31 06/12/20 25 06/14/2025 CBC WITH DIFFE RENTI AL/PL ATELE T MCHC 33.6 g/dL 31.5-3 5.7 Not Available [facility] ([facility]) [address] [place], [address], 06/14/2025 11:16:31 06/12/20 25 06/14/2025 CBC WITH DIFFE RENTI AL/PL ATELE T RDW 13.0 % 11.6-1 5.4 Not Available [facility] ([facility]) [address] [place], [address], 06/14/2025 11:16:31 06/12/20 25 06/14/2025 CBC WITH DIFFE RENTI AL/PL ATELE T platelets 201 x10e3 /uL 150-45 0 Not Available [facility] ([facility]) [address] [facility], [place], [address], 06/14/2025 11:16:31 06/12/20 25 06/14/2025 CBC WITH DIFFE RENTI AL/PL ATELE T neutrophils 60 % notest ab. Not Available [facility] ([facility]) [address] [facility], [place], [address], 06/14/2025 11:16:31 06/12/20 25 06/14/2025 CBC WITH DIFFE RENTI AL/PL ATELE T lymphs 28 % notest ab. Not Available [facility] ([facility]) [address] [facility], [place], [address], 06/14/2025 11:16:31 06/12/20 25 06/14/2025 CBC WITH DIFFE RENTI AL/PL ATELE T monocytes 9 % notest ab. Not Available [facility] ([facility]) [address] [facility], [place], [address], 06/14/2025 11:16:31 06/12/20 25 06/14/2025 CBC WITH DIFFE RENTI AL/PL ATELE T eos 2 % notest ab. Not Available [facility] ([facility]) [address] [facility], [place], [address], 06/14/2025 11:16:31 06/12/20 25 06/14/2025 CBC WITH DIFFE RENTI AL/PL ATELE T basos 1 % notest ab. Not Available [facility] ([facility]) [address] [facility], [place], [address], 06/14/2025 11:16:31 06/12/20 25 06/14/2025 CBC WITH DIFFE RENTI AL/PL ATELE T neutrophils (absolute) 5.1 x10e3 /uL 1.4-7. 0 Not Available [facility] ([facility]) [address] [place], [address], 06/14/2025 11:16:31 06/12/20 25 06/14/2025 CBC WITH DIFFE RENTI AL/PL ATELE T lymphs (absolute) 2.4 x10e3 /uL 0.7-3. 1 Not Available [facility] ([facility]) [address] [facility], [place], [address], 06/14/2025 11:16:31 06/12/20 25 06/14/2025 CBC WITH DIFFE RENTI AL/PL ATELE T monocytes(ab solute) 0.7 x10e3 /uL 0.1-0. 9 Not Available [facility] ([facility]) [address] [facility], [place], [address], 06/14/2025 11:16:31 06/12/20 25 06/14/2025 CBC WITH DIFFE RENTI AL/PL ATELE T eos (absolute) 0.2 x10e3 /uL 0.0-0. 4 Not Available [facility] ([facility]) [address] [place], [address], 06/14/2025 11:16:31 06/12/20 25 06/14/2025 CBC WITH DIFFE RENTI AL/PL ATELE T baso (absolute) 0.1 x10e3 /uL 0.0-0. 2 Not Available [facility] ([facility]) [address] [place], [address], 06/14/2025 11:16:31 06/12/20 25 06/14/2025 CBC WITH DIFFE RENTI AL/PL ATELE T immature granulocytes 0 % notest ab. Not Available [facility] ([facility]) [address] [place], [address], 06/14/2025 11:16:31 06/12/20 25 06/14/2025 CBC WITH DIFFE RENTI AL/PL ATELE T immature grans (abs) 0.0 x10e3 /uL 0.0-0. 1 Not Available [facility] ([facility]) [address] [facility], [place], [address], 06/14/2025 11:16:31 06/12/20 25 06/14/2025 VITAM IN D, 25-HY DROXY vitamin D, 25-hydroxy 27.3 NG/mL 30.0-1 00.0 below low normal Vitam in D defic iency has been defin ed by the Insti tute of Medic ine and an Endoc rine Socie ty pract ice guide line as a level of serum 25-OH vitam in D less than 20 ng/mL (1,2) . The Endoc rine Socie ty went on to furth er defin e vitam in D insuf ficie ncy as a level betwe en 21 and 29 ng/mL (2). 1. IOM (Inst itute of Medic ine). 2009. Dieta ry refer ence intak es for calci um and D. Angelina cole [place]: [facility] . 2. Aubrey colvin [place], Ino casillas [place], Rosey off-F errar i [place], et al. Evalu ation , treat ment, and preve ntion of vitam in D defic iency : an Endoc rine Socie ty clini katie pract ice guide line. JCEM. 2010; 96(7) :1911 -30. Not Available [facility] ([facility]) [address] [facility], [place], [address], 06/14/2025 11:16:32 11/23/19 25 11/22/2024 XR, abdom en + RF, small bowel , w/ contr ast PO No observ ation record ed. [place] [id number], [place], [address], 11/22/2024 15:03:26 03/07/20 25 02/28/2025 imagi ng/di agnos tic resul t No observ ation record ed. [email or web address], [place], [address], 03/08/2025 12:00:55 03/07/20 25 02/28/2025 MRI, abdom en + pelvi s, w/wo contr ast No observ ation record ed. [address], [place], [address], 03/07/2025 14:07:05 03/17/20 25 03/16/2025 XR, chest , 2 view No observ ation record ed. [address], [place], [address], 03/20/2025 12:53:31 03/18/20 25 03/18/2025 CT, abdom en + pelvi s, w/o contr ast No observ ation record ed. [address], [place], [address], 03/20/2025 12:53:04 03/18/20 25 03/18/2025 XR, chest , 2 view No observ ation record ed. [address], [place], [address], 03/20/2025 12:53:43 03/19/20 25 03/19/2025 XR, chest , 2 view No observ ation record ed. [address], [place], [address], 03/20/2025 12:53:58 04/12/20 25 04/11/2025 lab* No observ ation record ed. [address], [place], [address], 04/12/2025 12:22:36 04/12/20 25 04/11/2025 lab* No observ ation record ed. [address], [place], [address], 04/20/2025 09:09:07 04/19/20 25 04/11/2025 RF, diaph ragm No observ ation record ed. [facility] (Imaging) [address] [facility] [address], [place], [address], 04/21/2025 11:37:45 04/19/20 25 04/11/2025 RF, diaph ragm No observ ation record ed. [facility] (Imaging) [address] [facility] [address], [place], [address], 04/21/2025 11:37:45 04/20/20 25 04/11/2025 RF, diaph ragm No observ ation record ed. [place] [address] [id number] [facility] [address], [place], [address], 04/21/2025 11:29:34 Result Notes None recorded. Problems Name Problem SNOMED Code Status Onset Date Resolution Date Notes Provider Name and Address Organization Details Recorded Time Essential hypertensi on 72156067 Active 2022 DAMIEN HERNADEZ Attn: John rios,[address] [place], [address], [facility] - [facility] 3 12:25:20 Overweight 579155453 Active 2022 DAMIEN HERNADEZ Attn: John rios,[address] [place], [address], [place] - [facility] 3 12:25:21 Gastroesop hageal reflux disease 954449260 Active 2022 DAMIEN HERNADEZ Attn: John rios,[address] [place], [address], [place] - [facility] 3 12:25:24 Low back pain 774230569 Active 2022 DAMIEN HERNADEZ Attn: John rios,[address] [place], [address], [place] - [facility] 3 12:25:25 Pain of multiple joints 10462304 Active 2022 DAMIEN HERNADEZ Attn: John rios,[address] [facility], [place], [address], [place] [facility] 3 12:25:28 Pain of bilateral knee regions 3101498895319 02 Active 2022 DAMIEN HERNADEZ Attn: John rios,[address] [place], [address], [place] [facility] 3 12:25:29 Lesion of skin of right ear 0815800741855 9106 Active 2022 DAMIEN HERNADEZ Attn: John rios,[address] [facility], [place], [address], [place] [facility] 3 12:25:32 Insomnia 364266913 Active 2022 DAMIEN HERNADEZ Attn: John rios,[address] [facility], [place], [address], [place] [facility] 3 12:25:34 Headache 30047821 Active 2023 DAMIEN HERNADEZ Attn: John rios,[address] [facility], [place], [address], [place] [facility] 4 14:34:02 History of pancreatit is 3171049704368 7 Active 03/2025 liekly due to ERCP DAMIEN HERNADEZ Attn: John rios,[address] [place], [address], [place] [facility] 5 08:26:30 Problem Notes None recorded. Medical Equipment None Reported. Allergies Allergen ID Allergen Name Allergen Category Reaction Reaction Severity Criticality Documentation Date Start Date Code Code System Note Provider Name and Address Organization Details Recorded Time 483438 amoxicill in medicatio n swelling Not available Not available 12/17/2022 723 RxNorm Tyra Ferrari MA null, [place] - [facility] 3 11:18:56 Medications Name Sig Start Date Stop Date Status Note LastModified by Organization Details LastModified Time eq sinus 12-hour 120mg tab TAKE 1 TABLET BY MOUTH EVERY 12 HOURS NEEDED FOR NASAL CONGESTIO N 06/12 completed Not Available Not Available Not Available binaxnow cov kit home delfin 12/17 completed Not Available Not Available Not Available cyclobenzap rine 10 mg tablet TAKE 1 TABLET BY MOUTH THREE TIMES DAILY NEEDED FOR MUSCLE SPASM 10/13 completed Not Available Not Available Not Available naproxen 375 mg tablet TAKE 1 TABLET BY MOUTH TWICE DAILY 06/12 completed Not Available Not Available Not Available trazodone 50 mg tablet TAKE 1 [...] TAKE 1 CAPSULE BY MOUTH ONCE DAILY 06/12 completed Not Available Not Available Not Available hydrocortis one acetate 25 mg rectal suppository Insert 1 supposito ry twice a day by rectal route for 14 days. 07/03 completed Not Available Not Available Not Available nortriptyli ne 25 mg capsule TAKE 1 CAPSULE BY MOUTH EVERY DAY AT BEDTIME 06/12 completed Not Available Not Available Not Available dicyclomine 20 mg tablet TAKE 1 [...] EVERY 6 HOURS NEEDED FOR ABDOMINAL PAIN 06/12 completed Not Available Not Available Not Available nortriptyli ne 10 mg capsule TAKE 2 CAPSULES BY MOUTH AT BEDTIME 06/12 completed Not Available Not Available Not Available losartan 25 mg tablet TAKE 1 TABLET BY MOUTH ONCE DAILY active Not Available Not Available No t Available gabapentin 300 mg capsule TAKE 1 CAPSULE [...] MOUTH EVERY 6 HOURS NEEDED FOR PAIN 06/12 completed Not Available Not Available Not Available methylpredn isolone 4 mg tablets in a dose pack TAKE DIRECTED 12/17 completed Not Available Not Available Not Available indomethaci n ER 75 mg capsule,ext ended release TAKE 1 CAPSULE BY MOUTH ONCE DAILY 10/13 completed Not Available Not Available Not Available ondansetron 4 mg disintegrat ing tablet DISSOLVE 2 TABLETS IN MOUTH TWICE DAILY NEEDED FOR 5 DAYS 06/12 completed Not Available Not Available Not Available fluticasone propionate 50 mcg/actuati on nasal spray,suspe nsion [place] 1 spray every day by intranasa l route. 10/17 completed Not Available Not Available Not Available naproxen 500 mg tablet Take 1 tablet every 12 hours by oral route for 14 days. 06/12 completed Not Available Not Available Not Available amoxicillin 875 mg-potassiu m clavulanate 125 mg tablet TAKE 1 TABLET BY MOUTH EVERY 12 HOURS 03/27 completed Not Available Not Available Not Available azithromyci n 500 mg tablet TAKE 1 TABLET BY MOUTH ONCE DAILY FOR 3 DAYS 03/27 completed Not Available Not Available Not Available tizanidine 2 mg capsule TAKE 1 CAPSULE BY MOUTH THREE TIMES DAILY NEEDED FOR MUSCLE SPASM. MAY TAKE 1 OR 2 CAPSULES AT BEDTIME ONLY AND INCREASE TO DAYTIME IF NECESSARY . SEDATION CAN OCCUR. 10/13 completed Not Available Not Available Not Available Preparation H Rapid Relief-Lido kareem 5 %-0.25 %-14.4 %-15 % top cream Apply 1 applicati on 4 times a day by topical route. 2024 active Not Available Not Available Not Avai waldo Thomason COVID-19 Ag Self Test kit Use as Directed on the Package 12/17 completed Not Available Not Available Not Available Vitals Date Recorded Systolic And Diastolic Provider Name and Address Organization Details Last Updated DateTime 08/25/2024 132/88 mm[Hg] Carson HERNADEZ Attn: Accounting,[address] [facility], [place], [address], [facility] 08/29/2024 10:50:32 Date Recorded Body height Body mass index (BMI) Body weight Heart rate Oxygen saturation Provider Name and Address Organization Details Last Updated DateTime 08/25/2024 177.8 cm 28.6 kg/m2 32379.88 g 90 /min 98 % Tyra Ferrari MA [facility] 17:13:55 Date Recorded Body height Body mass index (BMI) Body weight Heart rate Oxygen saturation Systolic And Diastolic Provider Name and Address Organization Details Last Updated DateTime 5 177.8 cm 27.3 kg/m2 45277.5 5 g 96 /min 96 % 113/70 mm[Hg] Tyra Ferrari MA [facility] 5 12:28:27 Date Recorded Body height Body mass index (BMI) Body weight Heart rate Oxygen saturation Systolic And Diastolic Provider Name and Address Organization Details Last Updated DateTime 5 177.8 cm 27 kg/m2 87514.3 7 g 86 /min 98 % 126/80 mm[Hg] Tyra Ferrari MA [facility] 5 09:06:21 Date Recorded Body height Body mass index (BMI) Body weight Heart rate Oxygen saturation Systolic And Diastolic Provider Name and Address Organization Details Last Updated DateTime 5 177.8 cm 27.7 kg/m2 26773.3 3 g 90 /min 98 % 128/85 mm[Hg] Tyra Ferrari MA [facility] 5 10:27:06 Date Recorded Body height Body mass index (BMI) Body weight Heart rate Oxygen saturation Systolic And Diastolic Provider Name and Address Organization Details Last Updated DateTime 5 177.8 cm 29 kg/m2 44323.6 6 g 90 /min 97 % 141/87 mm[Hg] Tyra Ferrari [place] [facility] 16:53:56 Social History Question Answer Notes LastModified by Organizat ion Details LastModified Time Tobacco Smoking Status Smoker, Current Status Unknown cigars, doesn't inhale DAMIEN HERNADEZ Attn: Accounting,[address] [place], [address], [place] [facility] 10/17/2024 15:13:21 In The 14 Days Before [...] DAMIEN HERNADEZ Attn: Accounting[address] , [place], [address], [facility] 12/17/2022 13:55:17 Influenza, split virus, trivalent, PF 06/13/2025 completed Yaima Mora MA null, [facility] 06/13/2025 09:34:08 Past Encounters Encounter ID Performer Location Encounter Start Date Encounter Closed Date Diagnosis/Indication Diagnosis SNOMED-CT Code Diagnosis ICD10 Code Diagnosis IMO Codes Diagnosis Note [id number] DAMIEN HERNADEZ [facility] [address] [place] [address] 12/17/2022 11:14:04 12/17/2022 11:41:40 Overweight 350928483 E66.3 Essential hypertension 13502414 I10 dx 3 years agocomplai nt on losartan 25 mgadvised no smoking cigarsDASH DIET Cholesterol screening 27 3129299 Z13.220 Gastroesop hageal reflux disease 317214423 K21.9 wean off. education given about reflex reflux. Low back pain 057813597 M54.50 2 weeks of lower back pain with radiation to hips Pain of mu ltiple joints 29786323 M25.50 b/l knee , wrists felt 3-4 x per day. worse after lifting heavy things at work and weather changes. Pain of bi lateral knee regions 2663777802 79855 M25.561 b/l knee pain all over x years multiple days of the weeworse with weather changes or heavy liftinghas not had xray or done PT yet PEX: normal ROM, no swelling or bony abnormalit y. - PT Insomnia 436426084 G47.0 0 Discussed sleep hygiene - no [...] work Lesion of skin of right ear 3930289407 7511272 H93.8X1 papule with regular borders and one color on right ear scaphia present for 6 yearswould like removal of thisdermat ology Administra tion of diphtheria, pertussis, and tetanus vaccine 659349831 Z23 given today [id number] DAMIEN HERNADEZ [facility] [address] [place] [address] 12/19/2022 09:35:16 12/19/2022 09:57:55 [id number] DAMIEN SWANSON [facility] [address] [place] [address] 05/07/2023 12:09:03 05/07/2023 13:07:27 Nausea 477944049 R11.0 a/w headachesn o vomiting, diarrhea, constipati on, or abd paintrial zofran Migraine 89033084 G43.90 9 x5 daysthrobb ing around his entire heada/w nausea and dizzinessn o relief with OTC medsno concerning sxPEx- nl, CN II-XII intact, romberg negative, EOMI intact without dizzinessu nknown etiology, BP under control, glasses 1 yr old, adequate sleep, food, fluid intakecoul d be related to increase stress and anxiety with new jobtrial imitrex [id number] excedrin migraineRT W on 05/11/23, encouraged rest and increase fluid intakef/u in 1 wk if sx are not improved [id number] DAMIEN HERNADEZ [facility] [address] [place] [address] 11/16/2023 13:48:32 11/16/2023 14:37:47 Headache 82749458 R51.9 left sided headache resulting in ER visit. normal labs, CT head, CTA neck/head, cxr.has neurology f/y 12/09/23advi sed return to ER is worst headache of new neurologic al sx Essential hypertension 56432644 I10 elevated BP and increased weight from last visitadvis ed checking at home and f/u as he states he gets nervous coming heregood compliance on losartan 25 mgadvised no smoking cigarsDASH DIET Temporoman dibular joint disorder 15326137 M26.609 tender on palpationo ne episode of pain with chewing [id number] Abhishek Soto MD [facility] [address] [place] [address] 08/25/2024 17:05:26 08/25/2024 17:35:16 Nausea and vomiting 81101564 R11.2 one episode today of epigastric pain and vomiting w/o any more nausea, diarrhea, constipati on. no sick contacts. no recent travel. On exam he is midlly diffusely tender on abdomen. skin is dry and warm without color changes. Patient advised to seek ER if pain worsens, cannot keep down fluids or has fever.annie ent agrees Overweight 766749973 E66 .3 [id number] Abhishek Soto MD [facility] [address] [place] [address] 10/13/2024 12:21:20 10/13/2024 12:50:22 Abdominal pain 35434110 R10.9 severe episodes of abdominal pain lasting up to 45 minutes casing him to double over. He has had two CT scan and an EGD with GI. no test showing cause of pain.- nutcracker syndrome, nutcracker esophagus/ esophageal spasm, MSA, - next steps: swallow test, manometry? - continue following GI- trial nortriptyl ine- obtain MRI Spasm 90660081 R25.2 patient possibly having spasms in GI tractwill trial nortriptyl ine and obtain MRIhe is encouraged to f/u with GI Overweight 148899252 E66 .3 [id number] Abhishek Soto MD [facility] [address] [place] [address] 11/08/2024 09:00:20 11/08/2024 09:24:03 Abdominal pain 33632596 R10.9 abdominal pain improved on TCA and [...] GI- trial nortriptyl ine- obtain MRI Spasm 82509209 R25.2 patient possibly having spasms in GI tractwill trial nortriptyl ine and obtain MRIhe is encouraged to f/u with GI [id number] Abhishek Soto MD [facility] [address] [place] [address] 2025 10:20:58 2025 11:07:08 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 According to dermatolog y guidelines , removal is indicated when tags are causing irritation , bleeding, or cosmetic concern History of hemorrhoid 16 57160044 9453440 Z87.19 1665545 Advise sitz baths (10-15 minutes warm water 2-3 times daily) to relieve irritation . Increase dietary fiber, monitor bowel habits to avoid constipati on/straini ng; encourage adequate water intake. Avoid tight clothing, scented toilet paper, and irritants (coffee, acidic/spi cy foods) if identified as triggers. If no improvemen t in one week or presence of bleeding, pain, or mass refer to colorectal /proctolog y. No abnorma lity detected - examination result 827579199 Z00.00 [id number] Mr. Ruiz is a 40-year-ol d male who presents today with his partner. Two months ago he was hospitaliz ed and underwent cholecyste ctomy for gallstone disease. He was referred to pulmonolog y at a prior visit for an incidental lung finding, with follow-up scheduled for September. He is here today for multiple concerns. Administra tion of influenza vaccine 79555390 Z23 Pain of knee region 1003 144399 M25.561 G89.29 55443322 Order weight bearing knee plain radiograph to assess for any degenerati ve changes, patellar alignment. Consider MRI if radiograph or exam suggests meniscal/l igamentous injury. Initiate conservati ve management : activity modificati on (reduce heavy load/stand ing if possible or alternate tasks), NSAID (unless contraindi cated) for symptomati c relief, ice after work shift, also patellar tracking stretch/st rengthenin g. Consider referral to physical therapy focusing on quadriceps and hip/glutea l strengthen ing, patellar tracking exercises. 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 Follow up in 4 6 weeks to assess improvemen t; escalate if no improvemen t. 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 Advise initiation of regular exercise (150 minutes moderate/w [place]) as tolerated given knee pain. Recommend diet improvemen t: increase fruits/veg etables, whole grains, reduce saturated fat, limit processed foods. Instruct home blood pressure monitoring (twice daily for a week) and record values. Follow up for BP review and consider adding lifestyle interventi ons; if persistent ly elevated, consider antihypert ensive initiation per guidelines . Smoker 64959380 F17.200 Overweight 149234115 E66 .3 56805 BMI 29 Depression screening negative 1279590776 75126 Z13.31 17038321 PHQ 2 - 0 Health Concerns Section Related Observation LastModified by Organization Detai ls LastModified Time None Recorded Concern Status LastModified by Organization Details LastModified Time None Recorded Advance Directives Directive None Recorded Payers Insurance Date Sequence Insurance Name Policy Number Policy Jimenez Covered Member ID Jimenez Member ID Guarantor Name 06/09/2025 1 [employer] [id number] Joseph lau [id number] Joseph Kimball Notes Date Note Type Note Provider Name and Address Organization Details Recorded Time 08/25/2024 text/html one episode of vomiting today and nausea, no fever, chills, diarrhea. no sick contacts. Has eaten same foods as . Denies any alcohol use or new medications. DAMIEN HERNADEZ Attn: Accounting[address] , [place], [address], [facility] 08/29/2024 10:50:45 10/13/2024 text/html Joseph is here [...] new medications. DAMIEN HERNADEZ Attn: Accounting[address] , [place], [address], [facility] 10/17/2024 15:17:12 11/08/2024 text/html Joseph is here [...] new medications. DAMIEN HERNADEZ Attn: Accounting[address] [facility], [place], [address], [facility] 11/08/2024 09:23:45 2025 text/html Joseph is here for f/u after ER visit he states they found the cause of his pain to be stone. they did ERCP that was completed by pancreatitis. He is feeling better. He bring in notes from GI stating he needs chest xray w/ fluoroscopy. overall he feels back to normal. c/o of bloating after meals only. Eating steak and saldas. has f/u with GI for for stent placement. DAMIEN HERNADEZ Attn: Accounting[address] , [place], [address], [place] [facility] 2025 11:00:56 06/12/2025 text/html Chief Complaint: R ight knee pain, bothersome skin tags, anal itching and burning. History of Present Illness:Mr. Ruiz is a 40-year-old male who presents today with his partner. Two months ago he was hospitalized and underwent cholecystectomy for gallstone disease. He was referred to pulmonology at a prior visit for an incidental lung finding, with follow-up scheduled for September. 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 The pain is located at the anterior patella region. He notes increased discomfort bearing weight, difficulty with his work duties (standing/bearing load) and trouble with certain movements. He denies a specific recent trauma. He reports the pain is worse with weight bearing; less so at rest though still bothersome. No locking or giving way reported. He has no prior knee surgery on that side. No swelling or redness noted yet by him. Skin tags He has m ultiple skin tags, specifically one on the right eyelid and another on the right ear, which are becoming bothersome (irritation, cosmetic concern). He would like evaluation and removal by dermatology. Anal itching and burning He complains of anal pruritus (itching) and burning sensation. He has a history of hemorrhoids. He desires relief of these symptoms. He notes itching more than bleeding at this time. No associated blood in stool reported presently. He denies weight loss, night sweats, or significant bowel habit change. Preventive care He is interested in receiving the influenza vaccine today. Health behaviours / other He smokes cigars 1 2 per day. He denies alcohol use. He denies illicit drug use. He reports no regular exercise. Diet includes fruits and vegetables s ometimes. At today s visit his blood pressure is elevated at 141/87 mmHg. He was encouraged to monitor at home. Past surgical history Gallstone removal/cholecystecto my two months ago. No other surgeries mentioned. He denies chest pain, palpitations, dyspnea (outside of the incidental lung finding work-up), syncope, vision changes besides his glasses, joint swelling elsewhere, or new rashes/lesions of concern. Tyra burk NP Attn: Accounting[address] [facility], [place], [address], [place] [facility] 06/12/2025 21:16:53
--- OUTSIDE RECORDS SUMMARY | 2025-07-21 18:39 | XMS_ITS | Clinical Summary ---
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 Gender Identity Not on file Sexual Orientation Not on file Last Filed Vital Signs Vital Sign Reading Time Taken Comments Blood Pressure 131/83 09/28/2024 7:30 PM PASSENGER BRAKEMAN Pulse 76 09/28/2024 7:30 PM PASSENGER BRAKEMAN Temperature 36.7 C (98 F) 09/28/2024 4:00 PM PASSENGER BRAKEMAN Respiratory Rate 16 09/28/2024 7:30 PM PASSENGER BRAKEMAN Oxygen Saturation 97% 09/28/2024 7:30 PM PASSENGER BRAKEMAN Inhaled Oxygen Concentration - - Weight 87.1 kg (192 lb) 09/28/2024 1:34 PM PASSENGER BRAKEMAN Height 167.6 cm (5' 6) 09/28/2024 1:34 PM PASSENGER BRAKEMAN Body Mass Index 30.99 09/28/2024 1:34 PM PASSENGER BRAKEMAN Plan of Treatment Health Maintenance Due Date [...] patient's age to complete this topic Insurance [employer] Care Teams Questioned Documents Examiner Relationship Specialty Start Date End Date Marlen Mcmahon PA PCP - General Physician Case Monitor 09/28/24
--- OUTSIDE RECORDS SUMMARY | 2025-07-21 18:39 | XMS_ITS | Clinical Summary ---
Author Organization [facility] Care Team Providers Care Long Chain Beamer Name Role Phone Unavailable Primary Care Provider [...] Immunization (1 - 3-dose SCDM series) 2010 Influenza Immunization (#1) 2025 SARS-COV-2 Immunization ( season) 2025 Respiratory Syncytial Virus (RSV) Immunization (Adult) [...]
--- NOTE | 2025-07-21 21:00 | ED_ITS ---
HPI - Abdominal Pain General Chief Complaint: Abdominal Pain Stated Complaint: LUQ pain Time Seen by Provider: 07/21/25 20:36 History of Present Illness HPI narrative: 40-year-old male with a history of nonalcoholic fatty liver disease, cholecystectomy, choledocholithiasis, pancreatitis, ERCP history with post procedural pancreatitis, pancreatic duct placement and removal. 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 Patient presents to the emergency department today accompanied by his for 1 week of intermittent colicky right upper quadrant pain. He has also had chronic left upper quadrant abdominal pain that is unchanged. He states his right upper quadrant pain feels like his pancreatitis he had previously. He follows with local Gastroenterology for his procedures. States that he has vomited 1 time today. No constipation. No blood in the vomit or stool. No fever chills. No chest pain difficulty breathing. No traumatic injuries. Was otherwise in his normal state of health. Related Data Allergies Allergy/AdvReac Type Severity Reaction Status Date / Time hydrocodone Allergy Unknown Jittery/ANXIOUS Verified 07/21/25 18:54 FEELING Review of Systems 2 Review of Systems: As reviewed above in HPI All systems reviewed & are unremarkable except as noted in HPI and below PMFSH Past Medical History Medical History Presence of pancreatic duct stent Post-ERCP acute pancreatitis Cervical disc herniation Cervical myelopathy with cervical radiculopathy Left-sided headache Colon cancer screening Hx of type A viral hepatitis Elevated transaminase level HTN (hypertension) GERD (gastroesophageal reflux disease) Surgical History Surgical History Hx of vasectomy Hx of cholecystectomy Hx of appendectomy Family History Family History Father Hypertension Diabetes mellitus Mixed hyperlipidemia Mother Hypothyroidism Mixed hyperlipidemia Sibling No problems noted. Social History Social History Social History: Years smoked: 5 Smoking status: Current every day smoker Tobacco type: cigars Second hand tobacco smoke exposure: No Additional smoking assessment comments: 2-3 a day, pt smokes cigars Alcohol intake: never Substance use: never Substance use type: does not use Lack of Transportation: No Lack of Food: Never True Current Housing: I Have Housing Concerned About Future Housing: No Difficulty Paying Gas/Electric Bills: No Difficulty Paying for Meds: No Currently Unemployed: No Education: High School Diploma/GED Difficulty w/ Childcare or Family Care: No Living arrangements: with family Additional living arrangements comments: Occupation/Education: occupation 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 Mucous membranes moist. NECK: Supple. CHEST: [Clear to auscultation. No respiratory distress.] HEART: [Regular rate and rhythm]. No murmur heard. [Normal peripheral pulses.] ABDOMEN: Soft and nondistended, tender to palpation the right upper quadrant, no rigidity or guarding. No signs of peritonitis. EXTREMITIES: Normal range of motion. [No edema.] SKIN: Warm, dry, no rash. NEURO: [No focal deficits]. Alert and oriented [x3.] PSYCH: [Normal mood and affect.] Course Vital Signs Vital signs: Vital Signs Temperature 36.7 C 07/21/25 18:51 Pulse Rate 89 07/21/25 18:51 Respiratory Rate 20 07/21/25 18:51 Blood Pressure 139/96 H 07/21/25 18:51 Pulse Oximetry 99 07/21/25 18:51 Oxygen Delivery Room Air 07/21/25 18:51 Temperature 36.8 C 07/21/25 23:16 Pulse Rate 95 07/21/25 23:30 Respiratory Rate 20 07/21/25 23:30 Blood Pressure 127/88 07/21/25 23:16 Pulse Oximetry 99 07/21/25 23:30 Oxygen Delivery Room Air 07/21/25 18:51 MDM MDM Narrative Medical decision making narrative: 40-year-old male with a history of nonalcoholic fatty liver disease, cholecystectomy, choledocholithiasis, pancreatitis, ERCP history with post procedural pancreatitis, pancreatic duct placement and removal. 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 Patient presents to the emergency department today accompanied by his for 1 week of intermittent colicky right upper quadrant pain. He has also had chronic left upper quadrant abdominal pain that is unchanged. He states his right upper quadrant pain feels like his pancreatitis he had previously. He follows with local Gastroenterology for his procedures. States that he has vomited 1 time today. No constipation. No blood in the vomit or stool. No fever chills. No chest pain difficulty breathing. No traumatic injuries. Was otherwise in his normal state of health. Patient is hemodynamically stable, does have reproducible pain with tenderness in the right upper quadrant. No signs of rigidity or guarding. No fever tachycardia. He has extensive biliary system history with suspicion today for potential choledocholithiasis, pancreatitis, hepatitis, liver abscess, less likely pneumonia. Laboratory studies obtained as well as a CT scan. Patient given pain medications and re-evaluated. Laboratory studies are reassuring. No leukocytosis or anemia. Normal platelet count. Normal electrolytes, normal creatinine, normal glucose, LFTs and stable at her baseline. No significant elevations. Normal lipase. Urinalysis unremarkable. CT scan shows no acute abnormalities in the abdomen or pelvis. Some right hilar adenopathy otherwise no findings. Hepatic steatosis. Lung bases are clear. Patient re-evaluated and still had some pain. He was given Bentyl and dilaudid with good effect. He remains hemodynamically stable. No further nausea vomiting here. Pain controlled. No emergent findings today and he will have to follow up with his incident handler. Prescription for Bentyl and Zofran sent. Given return precautions and discharge instructions. Differential Diagnosis Differential Diagnosis: He has extensive biliary system history with suspicion today for potential choledocholithiasis, pancreatitis, hepatitis, liver abscess, less likely pneumonia. Lab Data MDM Lab Attestation statement: I personally reviewed the patient's lab results. 07/21/25 21:03 07/21/25 21:03 Labs: Lab Results 07/21/25 07/21/25 Range/Units 21:03 22:31 WBC 9.2 (4.5-10.0) K/mm3 RBC 5.32 (4.6-6.20) M/mm3 Hgb 16.3 (14.0-18.0) g/dL Hct 44.8 (42.0-52.0) % MCV 84.2 (80-100) fl MCH 30.6 (26-34) pg MCHC 36.4 H (32-36) g/dl RDW 12.7 (11.5-14.5) % Plt Count 199 (150-375) k/mm3 MPV 10.8 H (7.4-10.4) fl Immature Gran % (Auto) 0.4 (0-0.5) % Neut % (Auto) 62.7 (45.5-73.1) % Lymph % (Auto) 27.4 (18.3-44.2) % [place] % (Auto) 7.4 (2.6-8.5) % Eos % (Auto) 1.4 (0-4.4) % Baso % (Auto) 0.7 (0.2-1.2) % Lymph # (Auto) 2.52 (0.9-3.2) K/mm3 [place] # (Auto) 0.7 H (0.1-0.6) K/mm3 Eos # (Auto) 0.1 (0-0.3) K/mm3 Baso # (Auto) 0.1 (0.0-0.1) K/mm3 Abs Immat Gran (auto) 0.04 H (0.00-0.031) K/mm3 Absolute Neuts (auto) 5.8 (1.3-6.7) K/mm3 Absolute Nucleated RBC 0.000 (0.0-0.012) K/mm3 Nucleated RBC % 0.0 (0.0-0.2) % Sodium 137 (137-145) mmol/L Potassium 4.2 (3.4-5.0) mmol/L Chloride 101 (98-107) mmol/L Carbon Dioxide 29 (22-30) mmol/L Anion Gap 7 (4-12) mmol/L BUN 18 (9-20) mg/dL Creatinine 1.18 (0.7-1.3) mg/dL Estim Creat Clear Calc 80 ml/min Estimated GFR > 60 (59 - ) Glucose 105 (65-110) mg/dL Calcium 9.3 (8.4-10.2) mg/dL Total Bilirubin 1.1 (0.2-1.3) mg/dL AST 38 (17-59) U/L ALT 74 H (6-50) U/L Alkaline Phosphatase 85 (38-126) U/L Total Protein 7.6 (6.3-8.2) g/dL Albumin 4.4 (3.5-5.1) g/dL Lipase 84 (23-300) U/L Urine Color Yellow (Yellow) Urine Appearance Clear (Clear) Urine pH 5.5 (5.0-9.0) Ur Specific [place] 1.029 (1.001-1.035) Urine Protein Negative (Negative) mg/dL Urine Glucose (UA) Negative (Negative) mg/dL Urine Ketones Negative (Negative) mg/dL Ur Blood (Man) Negative (Negative) Urine Nitrate Negative (Negative) Urine Bilirubin Negative (Negative) Urine Urobilinogen 0.2 (<2.0) mg/dL Leukocyte Esterase Rfl Negative (Negative) MALATHI/UL Imaging Data Attestation: I personally reviewed and interpreted this imaging study as follows: Radiologist's impression: ITS Impressions Abdomen/Pelvis CT 07/21/25 22:22 IMPRESSION: No acute abnormality is noted in the abdomen and pelvis. Right hilar lymphadenopathy measuring 1.8 x 2.7 cm. Hepatic steatosis. All CT scans at this facility are performed using low dose modulation techniques as appropriate to perform exam including the following: automated exposure control; use of iterative reconstruction technique; adjustment of the mA and/or kV according to patient size (this includes techniques or standardized protocols for targeted exams where dose is matched to indication/reason for exam). Discharge Plan Discharge Clinical Impression: Gastroenteritis, Abdominal pain Patient Disposition: Home Condition: Stable Instructions: Antibiotic Form, Gastroenteritis (DC), Abdominal Pain (ED) Additional Instructions: CT scan shows no acute abnormalities in the abdomen or pelvis. Laboratory studies are stable without any signs of active infection or any biliary pathology. Likely stomach bug versus gastroenteritis. Follow-up with your incident handler and we have prescribed you medications for abdominal pain and vomiting. Return with any emergent concerns or worsening symptoms at any time. Patient Language: Cuban Prescriptions: New dicyclomine 20 mg tablet 20 mg PO TID PRN (Reason: abdominal pain) Qty: 20 0RF ondansetron 4 mg tablet,disintegrating 4 mg PO Q8H PRN (Reason: nausea and vomiting) Qty: 10 0RF No Action losartan 25 mg tablet See Rx Instructions .ROUTE .COMPLEX Qty: 90 1RF Dose Instruction: Take 1 tablet by mouth once daily Rx Instructions: Take 1 tablet by mouth once daily nortriptyline 10 mg capsule 20 mg PO QHS Qty: 60 1RF omeprazole 40 mg capsule,delayed release(DR/EC) 40 mg PO DAILY 30 Days Qty: 30 5RF hydrocortisone acetate [Anusol-HC] 25 mg suppository 25 mg RECTAL BID Qty: 20 0RF Follow-up/Referrals: Wojciech,DAMIEN Montiel [Primary Care Provider, Unknown] Stand Alone Forms: Work/School Release IP Time of Disposition: 23:08
[2025-07-21 21:11] LABS: Hematocrit 44.8 % (42.0-52.0); Hemoglobin 16.3 g/dL (14.0-18.0); Immature Granulocyte Percent A 0.4 % (0-0.5); Lymphocytes Absolute Auto 2.52 K/mm3 (0.9-3.2); Mean Corpuscular HGB Conc 36.4 g/dl (32-36); Mean Corpuscular Hemoglobin 30.6 pg (26-34); Mean Corpuscular Volume 84.2 fl (80-100); Nucleated Red Blood Cells Absolute Auto 0.000 K/mm3 (0.0-0.012); Nucleated Red Blood Cells Perc 0.0 % (0.0-0.2); Platelet Count Result 199 k/mm3 (150-375); Red Blood Count 5.32 M/mm3 (4.6-6.20); White Blood Count 9.2 K/mm3 (4.5-10.0)
[2025-07-21] MEDS: fentaNYL CITRATE INJ (*CRX) 100 MCG/2 ML VIAL 50 MCG IV PUSH (21:12)
[2025-07-21] MEDS: FAMOTIDINE 20 MG/2 ML VIAL IV PUSH (21:12)
[2025-07-21] MEDS: ONDANSETRON INJ 4 MG/2 ML VIAL IV PUSH (21:12)
[2025-07-21] MEDS: LACTATED RINGERS 1,000 ML 999 ML IV CONT (21:13)
[2025-07-21 21:19] LABS: Alanine Aminotransferase 74 U/L (6-50); Albumin Level 4.4 g/dL (3.5-5.1); Alkaline Phosphatase 85 U/L (38-126); Anion Gap 7 mmol/L (4-12); Aspartate Amino Transferase 38 U/L (17-59); Bilirubin,Total 1.1 mg/dL (0.2-1.3); Blood Urea Nitrogen 18 mg/dL (9-20); Calcium 9.3 mg/dL (8.4-10.2); Carbon Dioxide 29 mmol/L (22-30); Chloride 101 mmol/L (98-107); Estimated CRCL calculation 80 ml/min; Estimated Glomerular Filt Rate > 60; Glucose 105 mg/dL (65-110); Lipase 84 U/L (23-300); Potassium 4.2 mmol/L (3.4-5.0); Sodium 137 mmol/L (137-145); Total Protein 7.6 g/dL (6.3-8.2)
--- OUTSIDE RECORDS SUMMARY | 2025-07-21 21:28 | XMS_ITS | Clinical Summary ---
Author Organization [facility] Care Team Providers Care Automobile Mechanic Assistant Name Role Phone Unavailable Primary Care Provider [...]
--- OUTSIDE RECORDS SUMMARY | 2025-07-21 21:28 | XMS_ITS | Clinical Summary ---
Author Organization [facility] Address [address] [place] [address] Care Team Providers Care Public Health Program Manager Name Role Phone Marlen Mcmahon Primary Care [...] on file Legal Sex Male 8:08 PM JAVA ANDROID DEVELOPER Gender Identity Not on file Sexual Orientation Not on file Last Filed Vital Signs Vital Sign Reading Time Taken Comments Blood Pressure 131/83 09/28/2024 7:30 PM JAVA ANDROID DEVELOPER Pulse 76 09/28/2024 7:30 PM JAVA ANDROID DEVELOPER Temperature 36.7 C (98 F) 09/28/2024 4:00 PM JAVA ANDROID DEVELOPER Respiratory Rate 16 09/28/2024 7:30 PM JAVA ANDROID DEVELOPER Oxygen Saturation 97% 09/28/2024 7:30 PM JAVA ANDROID DEVELOPER Inhaled Oxygen Concentration - - Weight 87.1 kg (192 lb) 09/28/2024 1:34 PM JAVA ANDROID DEVELOPER Height 167.6 cm (5' 6) 09/28/2024 1:34 PM JAVA ANDROID DEVELOPER Body Mass Index 30.99 09/28/2024 1:34 PM JAVA ANDROID DEVELOPER Plan of Treatment Health Maintenance Due Date [...] patient's age to complete this topic Insurance [place] [employer] [place] [employer] [place] Care Teams Public Health Program Manager Relationship Specialty Start Date End Date Marlen Mcamhon PA PCP - General Physician Print Shop Stenographer 09/28/24
--- OUTSIDE RECORDS SUMMARY | 2025-07-21 21:28 | XMS_ITS | Clinical Summary ---
Author Organization [facility] Address [address] [place] [address] Care Team Providers Care Derrick Boat Runner Name Role Phone Unavailable Primary Care Provider Unavailabl e Source Comments [facility],non-owned Affiliates and Associated Physician Practices is amultiple site organization consisting of ambulatory clinics and hospital sitesin [place], [place], [place]. This disclosure is being madepursuant to the Care Everywhere program and may not contain all information available regarding this patient. 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 SELF PAY NO INSURANCE Member Subscriber Plan / Payer (Ef fective for All Dates) Name:Meenakshi JigarJoseph messer I Member ID:Not on file Relation to Subscriber:Not on file Name:MEENAKSHI GUERREROIREZJOSEPH Subscriber ID:Not on file (Home) Address: [address], [place] [address] Payer ID:Not on file Group ID:Not on file Type:Self Pay Address: [place], [place] [facility] * Guarantor: JOSEPH CASTREJON Account Type Relation to Patient Date of Phone Billing Address Personal/Family Spouse
[2025-07-21 22:38] LABS: Add Urine Microscopic? NO; Appearance Urine Clear (Clear); Glucose Urine UA Negative (Negative); Leukocyte Esterase Ur Negative LEU/UL (Negative); Nitrate Urine Negative (Negative); Specific Grav Ur 1.029 (1.001-1.035)
[2025-07-21] MEDS: HYDROmorphone HCL INJ (*CRX) 1 MG/ML SYR IV PUSH (22:41)
[2025-07-21] MEDS: DICYCLOMINE HCL INJ 20 MG/2 ML VIAL IM (23:32)
== END 2025-07-21 23:42 | disposition home or self-care (01) ==
PROVIDERS: Emergency Provider Student in an Organized Health Care Education/Training Program; PCP Physician Assistant
DX: K52.9 Noninfective gastroenteritis and colitis, unspecified (principal); R10.11 Right upper quadrant pain; K76.0 Fatty (change of) liver, not elsewhere classified; F17.290 Nicotine dependence, other tobacco product, uncomplicated; I10 Essential (primary) hypertension; K21.9 Gastro-esophageal reflux disease without esophagitis
CPT/HCPCS: 36415; 74177; 80053; 81003; 83690; 85025; 96361; 96372; 96374; 96375; 99284; J0500; J1171; J2405; J3010; J7120; Q9967

== ENCOUNTER 2025-07-26 09:44 | Emergency (ER) | payer BC, SELFPAY ==
[2025-07-26 09:58] VITALS: BP 112/80; PULSE 129; RESP 24; TEMP 37.4; O2SAT 97
--- NOTE | 2025-07-26 10:14 | ED_ITS ---
HPI - URI/Sore Throat General Chief Complaint: Upper Respiratory Infection Stated Complaint: Fever, cough,Sore throat Time Seen by Provider: 07/26/25 10:14 Source: patient, RN notes reviewed and old records reviewed Mode of arrival: ambulatory Limitations: no limitations History of Present Illness HPI Narrative: A 40-year-old male presents to the [facility] with cough fever sore throat for a couple of days. Reports that he has been exposed to both flu and COVID. No treatment prior to arrival Onset (ago): day(s) (2-3) Treatments prior to arrival: none Related Data Allergies Allergy/AdvReac Type Severity Reaction Status Date / Time hydrocodone Allergy Unknown Jittery/ANXIOUS Verified 07/26/25 10:03 FEELING Review of Systems Review of Systems: All systems reviewed & are unremarkable except as noted in HPI and below Constitutional: Constitutional: Reports as per HPI, Reports body ache(s), Reports fatigue and Reports fever(s) ENT: Reports as per HPI and Reports sore throat Cardiovascular: Cardiovascular: Reports no additional cardiovascular complaints, Denies chest pain and Denies dyspnea Respiratory: Respiratory: Reports as per HPI, Denies chest congestion, Reports cough and Denies dyspnea Musculoskeletal: Musculoskeletal: Reports no additional musculoskeletal complaints Integumentary/Breasts: Skin/Breast: Reports system reviewed and no additional complaints, except as docu PMFSH Past Medical History Medical History Presence of pancreatic duct stent Post-ERCP acute pancreatitis Cervical disc herniation Cervical myelopathy with cervical radiculopathy Left-sided headache Colon cancer screening Hx of type A viral hepatitis Elevated transaminase level HTN (hypertension) GERD (gastroesophageal reflux disease) Surgical History Surgical History Hx of vasectomy Hx of cholecystectomy Hx of appendectomy Family History Family History Father Hypertension Diabetes mellitus Mixed hyperlipidemia Mother Hypothyroidism Mixed hyperlipidemia Sibling No problems noted. Social History Social History Social History: Years smoked: 5 Smoking status: Current every day smoker Tobacco type: cigars Second hand tobacco smoke exposure: No Additional smoking assessment comments: 2-3 a day, pt smokes cigars Alcohol intake: never Substance use: never Substance use type: does not use Lack of Transportation: No Lack of Food: Never True Current Housing: I Have Housing Concerned About Future Housing: No Difficulty Paying Gas/Electric Bills: No Difficulty Paying for Meds: No Currently Unemployed: No Education: High School Diploma/GED Difficulty w/ Childcare or Family Care: No Living arrangements: with family Additional living arrangements comments: Occupation/Education: occupation 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 There is no relevant family history pertinent to the patient complaint. Exam Const: General: cooperative, no acute distress, well developed, alert, tired appearing, uncomfortable and well nourished Nutritional Appearance: well nourished Orientation/consciousness: patient oriented x3 Limitations: no limitations HENMT: Head: normal to inspection Ears: hearing grossly normal bilaterally, external ears normal, TM's normal bilaterally, EAC's normal, mastoids normal and no periauricular adenopathy Mouth: Yes Normal oral and palatal mucosa present, Yes lip normal, Yes tongue normal and Yes moist mucous membranes Throat: posterior oropharynx normal, uvula midline and no uvular edema Eyes: General: appearance normal, both eyes and all related structures Alignment and Position: alignment normal Neck: Neck: normal visual inspection, full ROM, no lymphadenopathy and no meningeal signs Chest: Chest palpation & inspection: normal inspection of the chest Resp: Effort & Inspection: normal respiratory effort and able to speak in complete sentences Auscultation: clear to auscultation bilaterally, no crackles, no rales, no rhonchi and no wheezes Cardio: Rate: regular rate Skin: General skin exam: normal color and no rashes or lesions noted Neuro: General: patient oriented x3, gait normal, moves all extremities and no meningeal signs Cognition (Neuro): normal cognition Speech: normal speech Gait exam (Neuro): Normal gait present Extrem: General: normal to inspection, full ROM, capillary refill normal and normal gait Psych: Appearance: grossly normal and well kempt Mental Status: mental st atus grossly normal Speech and movement: Normal speech and movement present and Clear speech present Affect: normal affect Attitude: cooperative Course Course Level of Care: Express Care Visit Vital Signs Vital signs: Vital Signs Temperature 99.4 F 07/26/25 09:58 Pulse Rate 129 H 07/26/25 09:58 Respiratory Rate 24 H 07/26/25 09:58 Blood Pressure 112/80 07/26/25 09:58 Pulse Oximetry 97 07/26/25 09:58 Oxygen Delivery Room Air 07/26/25 09:58 Temperature 99.4 F 07/26/25 09:58 Pulse Rate 129 H 07/26/25 09:58 Respiratory Rate 24 H 07/26/25 09:58 Blood Pressure 112/80 07/26/25 09:58 Pulse Oximetry 97 07/26/25 09:58 Oxygen Delivery Room Air 07/26/25 09:58 reviewed MDM MDM Narrative Medical decision making narrative: Patient sitting in exam room. Patient is nontoxic, vitals stable. Patient presents with URI symptoms with exposure to both flu and COVID. Patient is COVID positive. Patient is appropriate for outpatient treatment with close follow-up Discharge instructions reviewed with patient, as well as provided in writing per nursing staff. The instructions also include specific and strict return/GO TO THE ER as well as f/u information. All questions have been answered, and the patient deny any further questions with discharge and discharge plan. Some parts of this dictation were generated by voice recognition software and may contain typographical and/or grammatical inaccuracies. Differential Diagnosis Differential Diagnosis: Differential diagnostic considerations for upper respiratory infection include upper respiratory infection, croup, otitis media, sinusitis, viral infection, bronchitis, influenza, pharyngitis, strep, uvulitis.? Lab Data Labs: Lab Results 07/26/25 Range/Units 10:32 POC Influenza A Ag Positive (Negative) POC Influenza B Ag Negative (Negative) POC SARS CoV-2 Ag Negative (Negative) POC Grp A Strep Screen Negative (Negative) Reviewed Discharge Plan Discharge Clinical Impression: Influenza A Patient Disposition: Home Condition: Stable Instructions: Antibiotic Form, Influenza (ED) Additional Instructions: Your rapid strep swab was negative today at [facility]. A throat culture will be sent to the laboratory for further testing. If the test is positive, you will receive a phone call within 48 hours and an appropriate antibiotic will be initiated at that time. Your rapid COVID test were negative Your rapid flu test was positive for influenza A Your symptoms are due to a viral illness, which is not treated with antibiotics. Typically viral infections last 7-10 days, can linger for couple of weeks. It is very important to treat your symptoms. Drink plenty of water, Gatorade, Pedialyte, ice pops or Jell-O. -Alternate Tylenol and Motrin per package directions for fever or pain. You can alternate every 4 hours -Antihistamine medication such as Zyrtec/Claritin/Cassie during the day can help improve symptoms. -doing daily nasal irrigations can help relieve pressure your sinuses. Things like a Neti pot -Use Flonase twice a day for 5 days then daily to help reduce the inflammation and dry up your sinuses. -You can also use Mucinex. Be sure to drink plenty of water with this medication at least 8 ounces with every dose and it is important to drink 8 to 10 glasses of water per day. Water is a natural decongestant -Eat and drink things that are easy to swallow, like tea or soup, or popsicles. -Oral rinses such as: Salt water gargles and/or may use topical anesthetic (eg. Chloraseptic spray) or lozenges to relieve dryness or throat pain). -Frequent hand washing or hand family law paralegal is one of the best ways to prevent spread of infection. -Using a vaporizer or humidifier at night will also help thin secretions and help with coughing up phlegm. -Follow up with primary care provider in 7-10 days if condition is not improving - For new or worsening symptoms go directly to the nearest ER Patient Language: Togolese Prescriptions: No Action losartan 25 mg tablet See Rx Instructions .ROUTE .COMPLEX Qty: 90 1RF Dose Instruction: Take 1 tablet by mouth once daily Rx Instructions: Take 1 tablet by mouth once daily nortriptyline 10 mg capsule 20 mg PO QHS Qty: 60 1RF dicyclomine 20 mg tablet 20 mg PO TID PRN (Reason: abdominal pain) Qty: 20 0RF ondansetron 4 mg tablet,disintegrating 4 mg PO Q8H PRN (Reason: nausea and vomiting) Qty: 10 0RF omeprazole 40 mg capsule,delayed release(DR/EC) 40 mg PO DAILY 30 Days Qty: 30 5RF hydrocortisone acetate [Anusol-HC] 25 mg suppository 25 mg RECTAL BID Qty: 20 0RF Follow-up/Referrals: Salome,DAMIEN Miller [Primary Care Provider, Family Practice] Stand Alone Forms: Work/School Release IP Time of Disposition: 10:23
[2025-07-26 10:34] LABS: EDCOVIDSCREEN Negative (Negative); EDINFLUASCREEN Positive (Negative); EDINFLUBSCREEN Negative (Negative); EDSTREPNEGPOS1 Negative (Negative)
== END 2025-07-26 10:30 | disposition home or self-care (01) ==
PROVIDERS: Emergency Provider Nurse Practitioner; PCP Physician Assistant
DX: J10.1 Influenza due to other identified influenza virus with other respiratory manifestations (principal); Z20.822 Contact with and (suspected) exposure to COVID-19; F17.290 Nicotine dependence, other tobacco product, uncomplicated; I10 Essential (primary) hypertension; K21.9 Gastro-esophageal reflux disease without esophagitis; Z96.89 Presence of other specified functional implants; Z98.52 Vasectomy status
CPT/HCPCS: 87081; 87426; 87804; 87880; 99213; G0463